=== PATIENT | male | born 1985 | race Caucasian/White ===

== ENCOUNTER 2021-01-04 08:50 | Outpatient (CLI) | payer BC, SELFPAY ==
[2021-01-04 09:47] LABS: Alanine Aminotransferase 44 U/L (4-50); Albumin Level 4.3 g/dL (3.5-5.1); Alkaline Phosphatase 44 U/L (38-126); Anion Gap 8 mmol/L (8-16); Aspartate Amino Transferase 32 U/L (17-59); Bilirubin,Total 0.3 mg/dL (0.2-1.3); Blood Urea Nitrogen 10 mg/dL (9-20); Calcium 8.9 mg/dL (8.4-10.2); Carbon Dioxide 28 mmol/L (22-30); Chloride 106 mmol/L (98-107); Cholesterol 161 mg/dL (0-200); Estimated Glomerular Filt Rate > 60; Glucose 103 mg/dL (75-110); HDL Direct 42 mg/dL; Potassium 4.3 mmol/L (3.4-5.0); Sodium 142 mmol/L (137-145); Triglycerides 112 mg/dL (<150)
[2021-01-04 09:58] LABS: LDL Cholesterol Direct 99 mg/dL
[2021-01-04 09:59] LABS: Hemoglobin A1C 4.8 % (<5.7)
== END 2021-01-04 08:51 | disposition home or self-care (01) ==
LOC: ANHLAB 08:52
PROVIDERS: PCP Internal Medicine; Visit Provider Nurse Practitioner
DX: Z00.00 Encounter for general adult medical examination without abnormal findings (principal); Z68.37 Body mass index [BMI] 37.0-37.9, adult
CPT/HCPCS: 36415; 80053; 80061; 83036; 84443

== ENCOUNTER 2021-01-14 17:50 | Outpatient (CLI) | payer BC, SELFPAY | END 2021-01-14 17:51 | disposition home or self-care (01) | LOC: ANHCOVIDVC 17:50 | PROVIDERS: PCP Internal Medicine; Visit Provider Internal Medicine | DX: Z23 Encounter for immunization (principal) | CPT/HCPCS: 0001A; 91300 ==

== ENCOUNTER 2021-01-24 07:24 | Outpatient (CLI) | payer BC, SELFPAY | END 2021-01-24 07:25 | disposition home or self-care (01) | PROVIDERS: PCP Internal Medicine; Visit Provider Otolaryngology | DX: H91.91 Unspecified hearing loss, right ear (principal) | CPT/HCPCS: 92552; 92556; 92567 ==

== ENCOUNTER 2021-02-04 17:45 | Outpatient (CLI) | payer BC, SELFPAY | END 2021-02-04 17:46 | disposition home or self-care (01) | LOC: ANHCOVIDVC 17:45 | PROVIDERS: PCP Internal Medicine; Visit Provider Internal Medicine | DX: Z23 Encounter for immunization (principal) | CPT/HCPCS: 0002A; 91300 ==

== ENCOUNTER 2021-09-02 16:38 | Outpatient (CLI) | payer BC, SELFPAY ==
[2021-09-02 17:32] LABS: Add Urine Microscopic? YES; Appearance Urine Cloudy (Clear); Bilirubin Urine Negative (Negative); Blood Urine 1+ (Negative); Color Urine Yellow (Yellow); Glucose Urine UA Negative (Negative); Ketones Urine Negative (Negative); Leukocyte Esterase Ur Negative LEU/UL (Negative); Mucus Urine Rare /lpf; Nitrate Urine Negative (Negative); Protein Urine Negative (Negative); Specific Grav Ur 1.019 (1.001-1.035); Urobilinogen Urine Negative mg/dL (<2.0); WBC Urine 0-3 /hpf
== END 2021-09-02 16:39 | disposition home or self-care (01) ==
LOC: ANHLAB 16:39
PROVIDERS: PCP Internal Medicine; Visit Provider Nurse Practitioner
DX: R31.9 Hematuria, unspecified (principal)
CPT/HCPCS: 81001

== ENCOUNTER → 2021-09-17 09:16 | Outpatient (CLI) | payer BC, SELFPAY ==
--- NOTE | ~2021-09-17 | XR_ITS ---
XR abdomen/kub 1V 09/17/2021 10:09 INDICATION: Hematuria TECHNIQUE: KUB COMPARISON: None FINDINGS: Bowel gas pattern is normal. There is no evidence of free air, mass, organomegaly, ascites or obstruction. No abnormal calculi are seen. The bones appear intact. IMPRESSION: 1: No acute abdominal abnormality identified. Reviewed, dictated and finalized at location A. ORT UTILITY WORKER
--- NOTE | ~2021-09-17 | CT_ITS ---
EXAMINATION: CT abdomen pelvis wo/w con DATE: 09/17/2021 10:09 INDICATION: Hematuria. TECHNIQUE: Computed tomography (CT) of the abdomen and pelvis was performed without intravenous contr ast. The dose-length product was 2348.05 mGy-cm. Automated exposure control and iterative reconstruct ion technique were employed. COMPARISON: CT dated 08/27/2004. FINDINGS: Lung bases are unremarkable. Heart size normal. No significant pleural or pericardial effus ion. There are mildly enlarged ileocolic lymph nodes which appear chronic, likely reactive. There are surgical changes of prior appendectomy. No renal/ureteral stones or hydronephrosis. Bladder is unrem arkable. No significant vascular abnormality. Nonobstructive bowel gas pattern. The liver, spleen, pancreas, adrenal glands and kidneys are unremarkable. Gallbladder is present. Col onic diverticulosis without evidence for diverticulitis. No renal masses or hydronephrosis. No free a ir or free fluid. IMPRESSION: 1. No findings to account for hematuria. Reviewed, dictated and finalized at location A. NICAL COMMUNICATOR
[2021-09-17 09:45] LABS: Estimated Glomerular Filt Rate > 60
== END ==
PROVIDERS: PCP Internal Medicine; Visit Provider Nurse Practitioner Adult Health
DX: R31.9 Hematuria, unspecified (principal)
CPT/HCPCS: 74018; 74178; Q9967

== ENCOUNTER 2025-05-03 16:18 | Outpatient (CLI) | payer BC, SELFPAY ==
[2025-05-03 16:35] LABS: Basophils Absolute Auto 0.1 K/mm3 (0.0-0.1); Basophils Percent Auto 0.5 % (0.2-1.2); Eosinophils Absolute Auto 0.3 K/mm3 (0-0.3); Eosinophils Percent Auto 2.6 % (0-4.4); Hematocrit 50.2 % (42.0-52.0); Immature Granulocyte Absolute 0.05 K/mm3 (0.00-0.031); Immature Granulocyte Percent A 0.4 % (0-0.5); Lymphocytes Absolute Auto 2.79 K/mm3 (0.9-3.2); Mean Corpuscular HGB Conc 33.9 g/dl (32-36); Mean Corpuscular Hemoglobin 30.5 pg (26-34); Mean Corpuscular Volume 90.1 fl (80-100); Mean Platelet Volume 9.7 fl (7.4-10.4); Monocytes Absolute Auto 0.9 K/mm3 (0.1-0.6); Monocytes Percent Auto 6.7 % (2.6-8.5); Neutrophils Absolute Auto 8.6 K/mm3 (1.3-6.7); Neutrophils Percent Auto 67.8 % (45.5-73.1); Platelet Count Result 375 k/mm3 (150-375); Red Blood Count 5.57 M/mm3 (4.6-6.20); Red Cell Distribution Width 12.6 % (11.5-14.5); White Blood Count 12.7 K/mm3 (4.5-10.0)
[2025-05-03 16:48] LABS: Alanine Aminotransferase 57 U/L (6-50); Albumin Level 4.9 g/dL (3.5-5.1); Alkaline Phosphatase 57 U/L (38-126); Anion Gap 13 mmol/L (4-12); Aspartate Amino Transferase 44 U/L (17-59); Bilirubin,Total 0.7 mg/dL (0.2-1.3); Blood Urea Nitrogen 8 mg/dL (9-20); Calcium 9.5 mg/dL (8.4-10.2); Carbon Dioxide 24 mmol/L (22-30); Chloride 103 mmol/L (98-107); Cholesterol 218 mg/dL (0-200); Estimated Glomerular Filt Rate > 60; Glucose 90 mg/dL (65-110); HDL Direct 43 mg/dL; Potassium 3.6 mmol/L (3.4-5.0); Sodium 140 mmol/L (137-145); Total Protein 8.7 g/dL (6.3-8.2); Triglycerides 156 mg/dL (<150)
[2025-05-03 17:00] LABS: LDL Cholesterol Direct 133 mg/dL
== END 2025-05-03 16:19 | disposition home or self-care (01) ==
LOC: ANHLAB 16:19
PROVIDERS: PCP Internal Medicine; Visit Provider Internal Medicine
DX: Z00.00 Encounter for general adult medical examination without abnormal findings (principal); I10 Essential (primary) hypertension; F32.9 Major depressive disorder, single episode, unspecified; Z13.220 Encounter for screening for lipoid disorders
CPT/HCPCS: 36415; 80053; 80061; 84443; 85025

== ENCOUNTER 2025-09-20 16:24 | Outpatient (CLI) | payer BC, SELFPAY ==
--- NOTE | ~2025-09-20 | XR_ITS ---
EXAM/PROCEDURE: XR chest 2V HISTORY: I10 - Essential (primary) hypertension SMOKER COMPARISON: None available. TECHNIQUE: Two view(s) of the chest. FINDINGS: LUNGS: Clear of acute processes. PLEURAL SPACES: Clear. No evidence of fluid or pneumothorax. HEART/ MEDIASTINUM: Normal in appearance. SOFT TISSUES: No significant findings. BONES: No acute osseous abnormality. IMPRESSION: No acute findings. Reviewed, dictated and finalized at location A. CTION MACHINE SETTER IMPRESSION: No acute findings.
--- OUTSIDE RECORDS SUMMARY | 2025-09-20 16:27 | XMS_ITS | Patient Health Record ---
Author Organization [facility] [employer] [facility] Address [address] [facility] [address] [place] [address] Care Team Providers Care Automatic Line Set Up Mechanic Name Role Phone Billy Womack DO Primary Care Provider Yeny Ramachandran Unavailable [phone] Cj Kruger Unavailable [phone] Allergies Allergen (clinical drug ingredient) Drug/Non Drug Allergy documented on EMR Reaction Allergy Type Onset Date Status atomoxetine Atomoxetine HCl suicidal thoughts Drug Allergy Active Results Component Value Reference Range Flag Notes UDT Reviewed date:06/09/2025 08:37:02 AM Interpretation: Performing Lab: Notes/Report: Amphetamine (AMP) N 0 - 1000 ng/ml Buprenorphine (BUP) N 0 - 10 ng/ml Oxazepam (BZO) N 0 - 300 ng/ml Cocaine (JOE) N 0 - 300 ng/ml Methamphetamine (mAMP) N 0 - 300 ng/ml Methylenedioxymethamphetamin e (MDMA) N 0 - 500 ng/ml Morphine (MOP) N 0 - 25 ng/ml Methadone (MTD) N 0 - 300 ng/ml Oxycodone (OXY) N 0 - 300 ng/ml THC P 0 - 50 ng/ml x N 0 - 1000 ng/ml x N 0 - 1000 ng/ml x N 0 - 300 ng/ml x N 0 - 300 ng/ml Validity Testing Reviewed date:06/01/2025 10:51:43 AM Interpretation: Performing Lab: Notes/Report: Not Medicated Consistent Not Medicated Consistent Not Medicated Consistent Not Medicated Consistent Specific [place] 1.018 1.003 - 1.030 pH 5.5 3.0 - 10.9 Oxidants -18 200 g/mL Creatinine 147.7 20.0 - 300.0 mg/dL THCCOOH Reviewed date:06/01/2025 10:51:34 AM Interpretation: Performing Lab:KYLIE Carson, [address] [place] [address] RIMMA JOHNSTON, Director - [id number] Notes/Report: An exception occurred while processing this report and so it has incomplete data. Please contact [employer] for assistance. THCCOOH 258.0 15.0 ng/mL POSITIVE Not Medicated Inconsistent PDF Report CE_OUT_RAW _COMMON_SR C_ORU UDT Reviewed date:05/25/2025 03:21:33 PM Interpretation: Performing Lab: Notes/Report: Amphetamine (AMP) N 0 - 1000 ng/ml Buprenorphine (BUP) N 0 - 10 ng/ml Oxazepam (BZO) N 0 - 300 ng/ml Cocaine (JOE) N 0 - 300 ng/ml Methamphetamine (mAMP) N 0 - 300 ng/ml Methylenedioxymethamphetamin e (MDMA) N 0 - 500 ng/ml Morphine (MOP) N 0 - 25 ng/ml Methadone (MTD) N 0 - 300 ng/ml Oxycodone (OXY) N 0 - 300 ng/ml THC P 0 - 50 ng/ml x N 0 - 1000 ng/ml x N 0 - 1000 ng/ml x N 0 - 300 ng/ml x N 0 - 300 ng/ml x N 0 - 300 ng/ml Reason For Referral No Information Medications Medication SIG (Take, Route, Frequency, Duration) Notes Start Date End Date Status DULoxetine HCl 60 MG Capsule Delayed Release Particles TAKE 1 CAPSULE BY MOUTH DAILY Oral; Duration: 90 Days Active [place] Carbonate 150 MG Capsule 1 capsule Orally bedtime; Duration: 90 days 08/09/2025 Active amLODIPine Besylate 5 MG Tablet TAKE 1 TABLET BY MOUTH DAILY Oral; Duration: 90 Days Active Social History Tobacco Use: Social History Observation Description Date Details (start date - stop date) Current Smoker 05/14/2006 - NA Sex Assigned At : Social History Observation Description Sex Assigned At Male Social History Miscellaneous: Social Info Question Answer Notes Safety issues: Are there any firearms in the house? No Social History Social Info Question Answer Notes Household: Marital Status: Single Number of Adults in household: 1 Number of Children in Household: 0 Level of Education: Finished College Drug/Alcohol: Social Info Question Answer Notes Drugs Have you used drugs other than those for medical reasons in the past 12 months? Yes Marijuana? Yes AUDIT-C (Standard) Did you have a drink containi ng alcohol in the past year? Yes How often did you have six or more drinks on one occasion in the past year? Never (0 point) How many drinks did you have on a typical day when you were drinking in the past year? 1 or 2 drinks (0 point) How often did you have a drink containing alcohol in the past year? Monthly or less (1 point) Tobacco Use: Social Info Question Answer Notes Tobacco Control (Standard) Tobacco use: Current smoker When did you start smoking? 05/14/2006 How often do you smoke cigarettes? Every day How many cigarettes a day do you smoke? 21-30 How soon after you wake up do you smoke your first cigarette? 6-30 minutes Are you interested in quitting? Thinking about quitting Additional Details Category Social Info Options Details Miscellaneous: Occupation: Logistics [employer] Problems Problem Type SNOMED Code ICD Code Onset Dates Problem Status W/U Status Risk Notes Problem Screening for cardiovascular system disease (390639798) Encounter for screening for cardiovascular disorders (Z13.6) Active confirmed Problem Dietary management surveillance (945195935) Dietary counseling and surveillance (Z71.3) Active confirmed Problem Generalized anxiety disorder (22708063) ADEOLA (generalized anxiety disorder) (F41.1) Active confirmed Problem Moderate recurrent major depression (58725041) MDD (major depressive disorder), recurrent episode, moderate (F33.1) Active confirmed Problem Nondependent cannabis abuse (366898149) Marijuana use (F12.90) Active confirmed Problem Attention deficit hyperactivity disorder (929313659) Attention deficit hyperactivity disorder (ADHD), unspecified ADHD type (F90.9) Active confirmed Problem Adult attention deficit hyperactivity disorder (disorder) (523738416) Attention deficit disorder (ADD) in adult (F98.8) Active confirmed Problem Elevated blood-pressure reading without diagnosis of hypertension (291954688) Elevated blood pressure reading (R03.0) Active confirmed Problem Suicidal thoughts (2862741) Suicidal thoughts (R45.851) Active confirmed Problem Tobacco use (161374425) Nicotine use (Z72.0) Active confirmed Problem Essential hypertension (47967450) Benign essential HTN (I10) Active confirmed Problem Inadequate sleep hygiene (525394896) Poor sleep hygiene (Z72.821) Active confirmed Vital Signs Heart Rate 70 /min 08/09/2025 Respiratory Rate 17 /min 05/25/2025 Height-cm 182.88 cm 08/09/2025 Blood pressure diastolic 113 mm Hg 08/09/2025 Weight-kg 127.28 kg 08/09/2025 Height 72 in 08/09/2025 Blood pressure systolic 178 mm Hg 08/09/2025 Weight 280.6 lbs 08/09/2025 BMI 38.05 kg/m2 08/09/2025 Encounters Encounter Location Date Provider Diagnosis [facility] [employer] [place] [address] [address] [facility] [address] [address] 05/25/2025 Yeny Sotelo Nicotine use Z72.0 ; MDD (major depressive disorder), recurrent episode, moderate F33.1 ; Marijuana use F12.90 ; Encounter for screening for cardiovascular disorders Z13.6 ; Dietary counseling and surveillance Z71.3 ; Elevated blood pressure reading R03.0 ; ADEOLA (generalized anxiety disorder) F41.1 ; Poor sleep hygiene Z72.821 and Attention deficit disorder (ADD) in adult F98.8 [facility] [employer] [address] [address] 06/08/2025 Cj Kruger Attention deficit hyperactivity disorder (ADHD), unspecified ADHD type F90.9 [facility] [employer] [address] [address] 06/22/2025 Yeny Sotelo Encounter for screen ing for cardiovascular disorders Z13.6 ; Dietary counseling and surveillance Z71.3 ; MDD (major depressive disorder), recurrent episode, moderate F33.1 ; Nicotine use Z72.0 ; Marijuana use F12.90 ; Elevated blood pressure reading R03.0 ; ADEOLA (generalized anxiety disorder) F41.1 ; Poor sleep hygiene Z72.821 and Attention deficit disorder (ADD) in adult F98.8 [employer] [place] [employer] [address] [address] 07/20/2025 Yeny Sotelo MDD (major depressiv e disorder), recurrent episode, moderate F33.1 ; Nicotine use Z72.0 ; Marijuana use F12.90 ; ADEOLA (generalized anxiety disorder) F41.1 ; Poor sleep hygiene Z72.821 ; Attention deficit disorder (ADD) in adult F98.8 [address] R45.851 [facility] [employer] [address] [place] [address] 08/09/2025 Yeny Sotelo MDD (major depressiv e disorder), recurrent episode, moderate F33.1 ; Nicotine use Z72.0 ; Marijuana use F12.90 ; ADEOLA (generalized anxiety disorder) F41.1 ; Poor sleep hygiene Z72.821 ; Attention deficit disorder (ADD) in adult F98.8 ; Suicidal thoughts R45.851 and Benign essential HTN I10 Assessments Encounter Date Diagnosis (ICD Code) Assessment Notes Treatment Notes Treatment Clinical Notes Section Notes 05/25/2025 MDD (major depressive disorder), recurrent episode, moderate (ICD-10 - F33.1) 1.Depression Cymbalta 60 mg daily in am - helping last month on rx PCP prescribe rx discuss therapy options- pateint will wait at this time 2. Anxiety Cymbalta 60 mg daily in am 3.Poor Sleep hygeine Sleep Hygeine- - KEEP YOUR BEDROOM DARK - GET LOTS OF NATURAL LIGHT IN THE MORNING. - DON'T WORK ON YOUR COMPUTER OR PHONE LATE AT NIGHT. - AVOID NAPS DURING THE DAY. - NO CAFFEINE 3 HOURS OR MORE AFTER WAKE UP TIME. - ONLY USE YOUR BED FOR SLEEPING - GET A RELAXATION ROUTINE BEFORE BED. - IF YOU CAN'T GET TO SLEEP AFTER 15 TO 30 MINUTES GET OUT OF BED AND DO SOMETHING RELAXING. - DON'T DRINK ALCOHOL IN THE EVENING or limit alcohol to 1 drink. 4. Tobacco use Smoking Education Do not smoke. Nicotine and other chemicals in cigarettes and cigars can cause lung damage. Ask your healthcare provider for information if you currently smoke and need help to quit. E-cigarettes or smokeless tobacco still contain nicotine. Talk to your healthcare provider before you use these products. education on decrease to stopping nicotine products and stop smoking hotline given -Quit - Yes [place] Tobacco Quitline Call a Smoking Quitline The National Cancer [place]'s Smoking Quitline, (8-278-49L-QUIT) Smokefree.gov, which connects you with your State's Quitline, (8-205-DANORRF) Veterans Smoking Quitline, (9-177-VWBRCLY) 5. Cannabis use Cannabis Use Education Recommend decrease/stop cannabis use as it can negatively impact mood, motivation, anxiety, sleep, focus/concentrat ion/memory (vigilance, elasticity, processing and attention); can also contribute to development of psychosis. Recommend decrease/stop cannabis use as it may be negatively impacting mood, motivation, anxiety, sleep, focus; can also contribute to development of psychosis Cannabis/marijua na information: http_s://estrellita.ni h.gov/publicatio ns/drugfacts/can nabis-marijuana http_s://www.[employer]/can kbdjd-xmg-tdhziy zw-cstzpotti-hmu d/ 6/ elevated blood pressure B/P EDUCATION educated on healthy b/p 120/80 monitor b/p at home refer to PCP, heart healthy diet and excise limit salt intake limit soda intake and caffiene increase water 7. ADD Schedule Creyos testing educated on cardiovascular health and HTN discuss non-stimualtes no control subtance prescribed by RADHA r/t cannabis use and HTN Patient educated on all medications including potential benefits, side effects, risks. Educated on proper dosing schedule and importance of compliance educated on all medications, benefits, side effects and risk, and educated on depression, anxiety, and ADHD, mood d/o and educated on compliance of medications, metabolic and movement d/o education appointment's, continue therapy discussion with patient about course of treatment and patient instructions. education on serotonin syndrome Discussed and educated pt regarding benzodiazepines are generally not intended for prolonged use and that use can cause tolerance, dependence, depression, and associated memory issues including dementias (this list is not exhaustive). Benzodiazepine use is generally not recommended concurrently with pain medications and/or other controlled substances educated on all medications, benefits, side effects and risk, and educated on depression, anxiety, and ADHD, mood d/o and educated on compliance of medications, metabolic and movement d/o education appointment is, continue therapy discussion with patient about course of treatment and patient instructions. education on serotonin syndrome SSRI/SNRI side effects discussed including but not limited to, gastric upset, nausea, vomiting, diarrhea and/or constipation, weight changes, sexual side effects including loss of libido, increased suicidal thoughts/behavio rs in children and young adults, and serotonin syndrome. Second generation antipsychotics (SGAs) have metabolic syndrome issues with weight gain, increase in prolactin, increased waist circumference, increased lipids, and increased glucose. Thus routine monitoring of weight, metabolic labs, etc. is indicated. A general rank ordering of antipsychotics that have the greatest to the least risk of metabolic effects is olanzapine, quetiapine, risperidone, ziprasidone, and aripiprazole. However, weight gain can occur with all of these drugs and considerable variability exists among patients receiving the same drug regarding the risk of metabolic effects. Anti-psychotic agents not only increase the risk of metabolic disorder, they also increase the risk of CVA, akathisia, and movement disorders including EPS or tardive dyskinesia (more common with first generation antipsychotics) and more. websites http_s://www.[facility].nih.gov/health /topics/mental-h ealth-medication s http_s://www.nam i.org/About-Ment al-Illness/Treat ments/Mental-Hea lth-Medications http_s://www.nam i.org/About-Ment al-Illness/Menta s-Kbvclr-Cozjmzb ons http_s://[employer]/depres myrna/the-cogniti kd-iwjqakyy-nn-d epression#treatm ents http__s://www.ni .nih.gov/healt h/topics/mental- health-medicatio ns http__s://www.na ct.org/About-Men prachi-Illness/Tamika tments/Mental-He alth-Medications http_s://estrellita.ni h.gov/publicatio ns/drugfacts/can nabis-marijuana http_s://www.[employer]/can mvgyw-ygh-nxvdvb bo-ohiaptrks-ckw d/ Medication Management and Follow-Up - Plan: - Schedule follow-up appointments every 1-3 months to monitor the patient's response to the medication regimen. - Reinforce the importance of avoiding recreational drug use due to potential neurotoxicity and interactions with prescribed medications. 06/08/2025 Attention deficit hyperactivity disorder (ADHD), unspecified ADHD type (ICD-10 - F90.9) ADHD Cognitive Assessment Interpretation Summary of Results ASRS v1.1 Part A Questionnaire: Score is above the threshold, indicating the presence of clinically significant ADHD symptoms. Cognitive Markers: Two cognitive markers are outside the typical range, suggesting some cognitive challenges associated with ADHD. Detailed Cognitive Profile Planning (Spatial Planning): Performance is above average (76th percentile), indicating good ability to plan and organize complex tasks. Spatial Working Memory: Performance is above average (78th percentile), showing strength in holding and manipulating spatial information. Attention (Feature Match): Zero errors, which is favorable and suggests strong sustained attention. Reaction time is faster than typical (86th percentile), indicating quick cognitive processing. Response Inhibition (Double Trouble): Very few errors and low interference ratios, suggesting that the ability to suppress automatic responses and manage conflicting information is within normal limits. Overall reaction time is slower than average (96th percentile), which may indicate a cautious or deliberate approach but is not necessarily pathological. Sustained Attention to Response Task (SART): Commission and omission errors are low, and reaction time variability is within average limits, suggesting generally consistent attention and response control. Interpretation While the ASRS questionnaire is indicative of ADHD symptoms, the objective cognitive assessment reveals generally strong or average performance across planning, working memory, attention, and inhibition. There is evidence of slightly slower processing speed in one inhibition task, but no substantial deficits. Overall, this pattern may reflect ADHD symptoms that are either well-compensat ed or situational, with minimal objective impairment in cognitive testing. Non-Pharmacolo c Recommendation s Behavioral Strategies: Implement structured routines and written schedules to reinforce organization and task completion. Cognitive Behavioral Therapy (CBT): CBT can help with skill-building in organization, time management, and impulse control. Environmental Adaptations: Reduce distractions in work and home environments. Use reminders, alarms, and external cues to aid attention and memory. Mindfulness-Ba sed Interventions: Mindfulness training can improve self-awareness of attention lapses and support focus. Task Management: Break complex or lengthy tasks into smaller, achievable segments with clear milestones. Physical Activity: Regular exercise supports overall cognitive health, mood stability, and self-regulatio n. Consistent Sleep Hygiene: Maintain regular sleep patterns to optimize cognitive performance and attention. Psychoeducatio n: Educate on ADHD and self-managemen t strategies, encouraging self-monitorin g and goal-setting. Summary The assessment indicates some ADHD symptoms by self-report but only mild objective findings. Non-pharmacolo gical interventions including structured routines, cognitive behavioral therapy, mindfulness, environmental modifications, and healthy lifestyle practices are recommended to support optimal functioning and minimize the impact of symptoms. Regular follow-up can help monitor progress and adjust strategies as needed. 06/22/2025 Encounter for screening for cardiovascular disorders (ICD-10 - Z13.6) 1.Depression Cymbalta 60 mg daily in am - helping last month on rx PCP prescribe rx discuss therapy options- pateint will wait at this time 2. Anxiety Cymbalta 60 mg daily in am 3.Poor Sleep hygeine Sleep Hygeine- - KEEP YOUR BEDROOM DARK - GET LOTS OF NATURAL LIGHT IN THE MORNING. - DON'T WORK ON YOUR COMPUTER OR PHONE LATE AT NIGHT. - AVOID NAPS DURING THE DAY. - NO CAFFEINE 3 HOURS OR MORE AFTER WAKE UP TIME. - ONLY USE YOUR BED FOR SLEEPING - GET A RELAXATION ROUTINE BEFORE BED. - IF YOU CAN'T GET TO SLEEP AFTER 15 TO 30 MINUTES GET OUT OF BED AND DO SOMETHING RELAXING. - DON'T DRINK ALCOHOL IN THE EVENING or limit alcohol to 1 drink. 4. Tobacco use Smoking Education Do not smoke. Nicotine and other chemicals in cigarettes and cigars can cause lung damage. Ask your healthcare provider for information if you currently smoke and need help to quit. E-cigarettes or smokeless tobacco still contain nicotine. Talk to your healthcare provider before you use these products. education on decrease to stopping nicotine products and stop smoking hotline given Quit - Yes [place] Tobacco Quitline Call a Smoking Quitline The National Cancer [place] Smoking Quitline, (1-352-68F-QUIT) Smokefree.gov, which connects you with your State's Quitline, (2-262-HBBNQLO) Veterans Smoking Quitline, (2-494-CESYVKD) 5. Cannabis use Cannabis Use Education Recommend decrease/stop cannabis use as it can negatively impact mood, motivation, anxiety, sleep, focus/concentrat ion/memory (vigilance, elasticity, processing and attention); can also contribute to development of psychosis. Recommend decrease/stop cannabis use as it may be negatively impacting mood, motivation, anxiety, sleep, focus; can also contribute to development of psychosis Cannabis/marijua na information: http_s://estrellita.ni h.gov/publicatio ns/drugfacts/can nabis-marijuana http_s://www.[employer]/can tcoog-tdb-zvygau yz-nzbfavmqj-muv d/ 6/ elevated blood pressure B/P EDUCATION educated on healthy b/p 120/80 monitor b/p at home refer to PCP, heart healthy diet and excise limit salt intake limit soda intake and caffiene increase water 7. 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 Educated on proper dosing schedule and importance of compliance educated on all medications, benefits, side effects and risk, and educated on depression, anxiety, and ADHD, mood d/o and educated on compliance of medications, metabolic and movement d/o education appointment's, continue therapy discussion with patient about course of treatment and patient instructions. education on serotonin syndrome Discussed and educated pt regarding benzodiazepines are generally not intended for prolonged use and that use can cause tolerance, dependence, depression, and associated memory issues including dementias (this list is not exhaustive). Benzodiazepine use is generally not recommended concurrently with pain medications and/or other controlled substances educated on all medications, benefits, side effects and risk, and educated on depression, anxiety, and ADHD, mood d/o and educated on compliance of medications, metabolic and movement d/o education appointment is, continue therapy discussion with patient about course of treatment and patient instructions. education on serotonin syndrome SSRI/SNRI side effects discussed including but not limited to, gastric upset, nausea, vomiting, diarrhea and/or constipation, weight changes, sexual side effects including loss of libido, increased suicidal thoughts/behavio rs in children and young adults, and serotonin syndrome. Second generation antipsychotics (SGAs) have metabolic syndrome issues with weight gain, increase in prolactin, increased waist circumference, increased lipids, and increased glucose. Thus routine monitoring of weight, metabolic labs, etc. is indicated. A general rank ordering of antipsychotics that have the greatest to the least risk of metabolic effects is olanzapine, quetiapine, risperidone, ziprasidone, and aripiprazole. However, weight gain can occur with all of these drugs and considerable variability exists among patients receiving the same drug regarding the risk of metabolic effects. Anti-psychotic agents not only increase the risk of metabolic disorder, they also increase the risk of CVA, akathisia, and movement disorders including EPS or tardive dyskinesia (more common with first generation antipsychotics) and more. websites http_s://www.[facility].nih.gov/health /topics/mental-h ealth-medication s http_s://www.nam i.org/About-Ment al-Illness/Treat ments/Mental-Hea lth-Medications http_s://www.nam i.org/About-Ment al-Illness/Menta p-Ydpxts-Uvttjvk ons http_s://[employer]/deprvika myrna/the-cogniti ib-rekrcoth-nz-d epression#treatm ents http__s://www.[facility].nih.gov/healt h/topics/mental- health-medicatio ns http__s://www.na mi.org/About-Men prachi-Illness/Tamika tments/Mental-He alth-Medications http_s://estrellita. h.gov/publicatio ns/drugfacts/can nabis-marijuana http_s://www.[employer]/can mnozc-cxf-yauohd gv-huowmhxal-rzb d/ Medication Management and Follow-Up - Plan: - Schedule follow-up appointments every 1-3 months to monitor the patient's response to the medication regimen. - Reinforce the importance of avoiding recreational drug use due to potential neurotoxicity and interactions with prescribed medications. 05/25/2025 Nicotine use (ICD-10 - Z72.0) 1.Depression Cymbalta 60 mg daily in am - helping last month on rx PCP prescribe rx discuss therapy options- pateint will wait at this time 2. Anxiety Cymbalta 60 mg daily in am 3.Poor Sleep hygeine Sleep Hygeine- - KEEP YOUR BEDROOM DARK - GET LOTS OF NATURAL LIGHT IN THE MORNING. - DON'T WORK ON YOUR COMPUTER OR PHONE LATE AT NIGHT. - AVOID NAPS DURING THE DAY. - NO CAFFEINE 3 HOURS OR MORE AFTER WAKE UP TIME. - ONLY USE YOUR BED FOR SLEEPING - GET A RELAXATION ROUTINE BEFORE BED. - IF YOU CAN'T GET TO SLEEP AFTER 15 TO 30 MINUTES GET OUT OF BED AND DO SOMETHING RELAXING. - DON'T DRINK ALCOHOL IN THE EVENING or limit alcohol to 1 drink. 4. Tobacco use Smoking Education Do not smoke. Nicotine and other chemicals in cigarettes and cigars can cause lung damage. Ask your healthcare provider for information if you currently smoke and need help to quit. E-cigarettes or smokeless tobacco still contain nicotine. Talk to your healthcare provider before you use these products. education on decrease to stopping nicotine products and stop smoking hotline given Quit - Yes [place] Tobacco Quitline Call a Smoking Quitline The [employer] [facility] [place]'s Smoking Quitline, (8-007-53X-QUIT) Smokefree.gov, which connects you with your [facility]'s Quitline, (4-166-PNHWKMO) [facility] Smoking Quitline, (5-882-EPEDEYG) 5. Cannabis use Cannabis Use Education Recommend decrease/stop cannabis use as it can negatively impact mood, motivation, anxiety, sleep, focus/concentrat ion/memory (vigilance, elasticity, processing and attention); can also contribute to development of psychosis. Recommend decrease/stop cannabis use as it may be negatively impacting mood, motivation, anxiety, sleep, focus; can also contribute to development of psychosis Cannabis/marijua na information: http_s://estrellita.ni h.gov/publicatio ns/drugfacts/can nabis-marijuana http_s://www.[employer]/can kgdlf-wmv-zmwado uy-avyskwzlf-pio d/ 6/ elevated blood pressure B/P EDUCATION educated on healthy b/p 120/80 monitor b/p at home refer to PCP, heart healthy diet and excise limit salt intake limit soda intake and caffiene increase water 7. ADD Schedule Creyos testing educated on cardiovascular health and HTN discuss non-stimualtes no control subtance prescribed by RADHA r/t cannabis use and HTN Patient educated on all medications including potential benefits, side effects, risks. Educated on proper dosing schedule and importance of compliance educated on all medications, benefits, side effects and risk, and educated on depression, anxiety, and ADHD, mood d/o and educated on compliance of medications, metabolic and movement d/o education appointment's, continue therapy discussion with patient about course of treatment and patient instructions. education on serotonin syndrome Discussed and educated pt regarding benzodiazepines are generally not intended for prolonged use and that use can cause tolerance, dependence, depression, and associated memory issues including dementias (this list is not exhaustive). Benzodiazepine use is generally not recommended concurrently with pain medications and/or other controlled substances educated on all medications, benefits, side effects and risk, and educated on depression, anxiety, and ADHD, mood d/o and educated on compliance of medications, metabolic and movement d/o education appointment is, continue therapy discussion with patient about course of treatment and patient instructions. education on serotonin syndrome SSRI/SNRI side effects discussed including but not limited to, gastric upset, nausea, vomiting, diarrhea and/or constipation, weight changes, sexual side effects including loss of libido, increased suicidal thoughts/behavio rs in children and young adults, and serotonin syndrome. Second generation antipsychotics (SGAs) have metabolic syndrome issues with weight gain, increase in prolactin, increased waist circumference, increased lipids, and increased glucose. Thus routine monitoring of weight, metabolic labs, etc. is indicated. A general rank ordering of antipsychotics that have the greatest to the least risk of metabolic effects is olanzapine, quetiapine, risperidone, ziprasidone, and aripiprazole. However, weight gain can occur with all of these drugs and considerable variability exists among patients receiving the same drug regarding the risk of metabolic effects. Anti-psychotic agents not only increase the risk of metabolic disorder, they also increase the risk of CVA, akathisia, and movement disorders including EPS or tardive dyskinesia (more common with first generation antipsychotics) and more. websites http_s://www.nim h.nih.gov/health /topics/mental-h ealth-medication s http_s://www.nam i.org/About-Ment al-Illness/Treat ments/Mental-Hea lth-Medications http_s://www.nam i.org/About-Ment al-Illness/Menta a-Yuderd-Mpbkrys ons http_s://psychce ntral.com/deprvika norris/the-cogniti tp-djvcngqn-bh-d epression#treatm ents http__s://www.ni .nih.gov/healt h/topics/mental- health-medicatio ns http__s://www.na mi.org/About-Men prachi-Illness/Tamika tments/Mental-He alth-Medications http_s://estrellita.ni h.gov/publicatio ns/drugfacts/can nabis-marijuana http_s://[employer]/can syraw-srk-zyngmm hu-bdeoccihc-emu d/ Medication Management and Follow-Up - Plan: - Schedule follow-up appointments every 1-3 months to monitor the patient's response to the medication regimen. - Reinforce the importance of avoiding recreational drug use due to potential neurotoxicity and interactions with prescribed medications. 07/20/2025 MDD (major depressive disorder), recurrent episode, moderate (ICD-10 - F33.1) Preventing Depression From Coming Back: Care Instructions material was published, Learning About Depression Screening material was published, Learning About Depression material was published, Depression Treatment: Care Instructions material was published, Seasonal Affective Disorder: Care Instructions material was published, Learning About Transcranial Magnetic Stimulation (TMS) material was published, Recovering From Depression: Care Instructions material was published, Depression and Chronic Disease: Care Instructions material was published, Learning About Antidepressants material was published, Deciding About Stopping Your Antidepressant material was published, Learning About How to Get Help During a Mental Health Crisis material was published, Suicidal Thoughts and Behavior: Care Instructions material was published, Suicidal Thoughts in a Family Member: Care Instructions material was published 1.Depression Cymbalta 60 mg daily in am - helping last month on rx Start [id number] at bedtime for depression and suicide prevention PCP prescribe rx discuss therapy options- pateint will wait at this time 2. Anxiety Cymbalta 60 mg daily in am 3.Poor Sleep hygeine Sleep Hygeine- - KEEP YOUR BEDROOM DARK - GET LOTS OF NATURAL LIGHT IN THE MORNING. - DON'T WORK ON YOUR COMPUTER OR PHONE LATE AT NIGHT. - AVOID NAPS DURING THE DAY. - NO CAFFEINE 3 HOURS OR MORE AFTER WAKE UP TIME. - ONLY USE YOUR BED FOR SLEEPING - GET A RELAXATION ROUTINE BEFORE BED. - IF YOU CAN'T GET TO SLEEP AFTER 15 TO 30 MINUTES GET OUT OF BED AND DO SOMETHING RELAXING. - DON'T DRINK ALCOHOL IN THE EVENING or limit alcohol to 1 drink. 4. Tobacco use Smoking Education Do not smoke. Nicotine and other chemicals in cigarettes and cigars can cause lung damage. Ask your healthcare provider for information if you currently smoke and need help to quit. E-cigarettes or smokeless tobacco still contain nicotine. Talk to your healthcare provider before you use these products. education on decrease to stopping nicotine products and stop smoking hotline given Quit - Yes [place] Tobacco Quitline Call a Smoking Quitline The [employer] [facility] [place] Smoking Quitline, (5-560-91B-QUIT) Smokefree.gov, which connects you with your State's Quitline, (3-311-KKMNFWH) [facility] Smoking Quitline, (7-614-IRZROAQ) 5. Cannabis use- discuss decrease use to stopping Cannabis Use Education Recommend decrease/stop cannabis use as it can negatively impact mood, motivation, anxiety, sleep, focus/concentrat ion/memory (vigilance, elasticity, processing and attention); can also contribute to development of psychosis. Recommend decrease/stop cannabis use as it may be negatively impacting mood, motivation, anxiety, sleep, focus; can also contribute to development of psychosis Cannabis/marijua na information: http_s://estrellita.ni h.gov/publicatio ns/drugfacts/can nabis-marijuana http_s://www.[employer]/can vkkdy-ove-ekqnks ie-populrlrr-imc d/ 6/ elevated blood pressure B/P EDUCATION-instru cted to call PCP or urgent care due to elevated blood pressure- patient will see a provider today discuss cardiovascular risk with elevated B/P ON RX educated on healthy b/p 120/80 monitor b/p at home refer to PCP, heart healthy diet and excise limit salt intake limit soda intake and caffiene increase water 7. 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 Suicidal thoughts denies S/HI no plans or intent passive thoughts for years no active thoughts educated on safety plan support system go to nearest ER with SI/HI plans or intent increase passive thoughts, active thoughts discuss and educated on [place] 150 mg at bedtime for depression and suicide prevention [place] education [place] use reviewed. Risks include risks of toxicity, arrhythmias, cognitive impairment, changes in muscle coordination, weight gain, thyroid and parathyroid changes, polydipsia and polyuria, alopecia, tremor and teratogenicity ( defects). Recommend avoid in females (use contraception consistently). Routine lab monitoring may be required. Patient consented to treatment. Indications: acute ronald (euphoric ronald), bipolar prophylaxis, bipolar depression treatment or augmentation, unipolar depression as augmentation with antidepressants Average dose = I,500 mg/day, target serum level 0.8 [place] is known to reduce risk of suicide. Mechanism of action: inhibits inositol monophosphatase, interfering with 2nd messengers Nuisance Side Effects: sedation, cognitive difficulties, decreased creativity, dry mouth, tremor, increased appetite, weight gain, polydipsia, polyuria, nausea, diarrhea, acne, alopecia Serious Side Effects: Thyroid: hypothyroidism (5%), goiter (3%) Cardiac: decrease in cardiac conduction leading to sick sinus syndrome, blocks SA node Teratogenicity: Ebstein's anomaly 2 in 1,000 Renal: chronic renal insufficiency (after 10-20 years), acute renal failure, polyuria occurs in 50-70% [lithium antagonizes anti-diuretic hormone (ADH)], diabetes insipidus in 10% (treat with amiloride) Drug-drug interactions: increase in lithium: NSAIDs, THELMA inhibitors, angiotensin II antagonists If you are planning on becoming , notify your health care provider so that he/she can best manage your medications. People living with bipolar disorder who wish to become face important decisions. It is important to discuss the risks and benefits of treatment with your doctor and caregivers. [place] has been associated with an increased risk of Ebstein's anomaly, a heart valve defect. Even though data suggest that the risk of Ebstein's anomaly from first trimester use of lithium is very low, an ultrasound of the heart is recommended at 16 to 20 weeks of gestation. [place] levels should be monitored monthly in early and weekly near delivery. Do not stop taking lithium without first speaking to your health care provider. Discontinuing mood stabilizer medications during has been associated with a significant increase in symptom relapse. If an overdose occurs call your doctor or 911. You may need urgent medical care. You may also contact the poison control center at . A specific treatment to reverse the effects of lithium does not exist, but there are treatments to decrease the effects of the medication. Only a doctor can determine if you require treatment. Avoid drinking alcohol or using illegal drugs while you are taking lithium. They may decrease the benefits (e.g., worsen your condition) and increase adverse effects (e.g., sedation) of the medication. Avoid low sodium diets and dehydration because this can increase the risk of lithium toxicity. Avoid over the counter and prescription pain medications that contain nonsteroidal anti-inflammator y medications (NSAIDS) such as ibuprofen (Motrin, Advil) or naproxen (Aleve, Naprosyn) because these medications can increase the risk of toxicity from lithium. Avoid excessive intake of caffeinated beverages, such as coffee, tea, cola or energy drinks, since these may decrease levels of lithium and decrease effectiveness of the medication. Discontinuing caffeine use may increase lithium levels. Consult your health care provider before reducing or stopping caffeine use. What are the possible side effects of lithium? Common side effects Headache Nausea or vomiting Diarrhea Dizziness or drowsiness Changes in appetite Hand tremors Dry mouth Increased thirst Increased urination Thinning of hair or hair loss Acne-like rash Rare/Serious side effects Signs of lithium toxicity include severe nausea and vomiting, severe hand tremors, confusion, vision changes, and unsteadiness while standing or walking. These symptoms need to be addressed immediately with a medical doctor to ensure your lithium level is not dangerously high. In rare cases, lithium may lead to a reversible condition known as diabetes insipidus. If this occurs you would notice a significant increase in thirst and how much fluid you drink and how much you urinate. Talk to your doctor if you notice you are urinating more frequently than usual. Are There Any Risks For Taking [place] For Long Periods Of Time? Hypothyroidism (low levels of thyroid hormone) may occur with long-term lithium use. Rare kidney problems have been associated with long-term use of lithium. The risk increases with high levels of lithium. Your doctor will monitor your kidney function at routine check-ups to ensure this does not occur. Summary of Black Box Warnings [place] Toxicity [place] toxicity is closely related to lithium blood levels and can occur at doses close to therapeutic levels; lithium levels should be monitored closely when starting the medication or if individuals experience side effects of the medication. discuss and educated on all rx Patient educated on all medications including potential benefits, side effects, risks. Educated on proper dosing schedule and importance of compliance educated on all medications, benefits, side effects and risk, and educated on depression, anxiety, and ADHD, mood d/o and educated on compliance of medications, metabolic and movement d/o education appointment's, continue therapy discussion with patient about course of treatment and patient instructions. education on serotonin syndrome Discussed and educated pt regarding benzodiazepines are generally not intended for prolonged use and that use can cause tolerance, dependence, depression, and associated memory issues including dementias (this list is not exhaustive). Benzodiazepine use is generally not recommended concurrently with pain medications and/or other controlled substances educated on all medications, benefits, side effects and risk, and educated on depression, anxiety, and ADHD, mood d/o and educated on compliance of medications, metabolic and movement d/o education appointment is, continue therapy discussion with patient about course of treatment and patient instructions. education on serotonin syndrome SSRI/SNRI side effects discussed including but not limited to, gastric upset, nausea, vomiting, diarrhea and/or constipation, weight changes, sexual side effects including loss of libido, increased suicidal thoughts/behavio rs in children and young adults, and serotonin syndrome. Second generation antipsychotics (SGAs) have metabolic syndrome issues with weight gain, increase in prolactin, increased waist circumference, increased lipids, and increased glucose. Thus routine monitoring of weight, metabolic labs, etc. is indicated. A general rank ordering of antipsychotics that have the greatest to the least risk of metabolic effects is olanzapine, quetiapine, risperidone, ziprasidone, and aripiprazole. However, weight gain can occur with all of these drugs and considerable variability exists among patients receiving the same drug regarding the risk of metabolic effects. Anti-psychotic agents not only increase the risk of metabolic disorder, they also increase the risk of CVA, akathisia, and movement disorders including EPS or tardive dyskinesia (more common with first generation antipsychotics) and more. websites http_s://www.[facility].nih.gov/health /topics/mental-h ealth-medication s http_s://www.nam i.org/About-Ment al-Illness/Treat ments/Mental-Hea lth-Medications http_s://www.nam i.org/About-Ment al-Illness/Menta c-Lectld-Uohgjxy ons http_s://psychYouWeb/depres myrna/the-cogniti ku-wyywoznu-tp-d epression#treatm ents http__s://www.[facility].nih.gov/healt h/topics/mental- health-medicatio ns http__s://www.na mi.org/About-Men prachi-Illness/Tamika tments/Mental-He alth-Medications http_s://estrellita. h.gov/publicatio ns/drugfacts/can nabis-marijuana http_s://www.[employer]/can vbwfn-tlb-jayuwr fi-dtlpptnsx-pjm d/ Medication Management and Follow-Up - Plan: - Schedule follow-up appointments every 1-3 months to monitor the patient's response to the medication regimen. - Reinforce the importance of avoiding recreational drug use due to potential neurotoxicity and interactions with prescribed medications. 07/20/2025 Nicotine use (ICD-10 - Z72.0) Quitting Tobacco: Care Instructions material was published, Stopping Smokeless Tobacco Use: Care Instructions material was published, Learning About Benefits of Quitting Smoking material was published, Deciding About Using Medicines To Quit Smoking material was published 1.Depression Cymbalta 60 mg daily in am - helping last month on rx Start [id number] at bedtime for depression and suicide prevention PCP prescribe rx discuss therapy options- pateint will wait at this time 2. Anxiety Cymbalta 60 mg daily in am 3.Poor Sleep hygeine Sleep Hygeine- - KEEP YOUR BEDROOM DARK - GET LOTS OF NATURAL LIGHT IN THE MORNING. - DON'T WORK ON YOUR COMPUTER OR PHONE LATE AT NIGHT. - AVOID NAPS DURING THE DAY. - NO CAFFEINE 3 HOURS OR MORE AFTER WAKE UP TIME. - ONLY USE YOUR BED FOR SLEEPING - GET A RELAXATION ROUTINE BEFORE BED. - IF YOU CAN'T GET TO SLEEP AFTER 15 TO 30 MINUTES GET OUT OF BED AND DO SOMETHING RELAXING. - DON'T DRINK ALCOHOL IN THE EVENING or limit alcohol to 1 drink. 4. Tobacco use Smoking Education Do not smoke. Nicotine and other chemicals in cigarettes and cigars can cause lung damage. Ask your healthcare provider for information if you currently smoke and need help to quit. E-cigarettes or smokeless tobacco still contain nicotine. Talk to your healthcare provider before you use these products. education on decrease to stopping nicotine products and stop smoking hotline given Quit - Yes [place] Tobacco Quitline Call a Smoking Quitline The [employer] [facility] [place] Smoking Quitline, (9-323-55X-QUIT) Smokefree.gov, which connects you with your State's Quitline, (9-460-YKVAAVU) [facility] Smoking Quitline, (4-885-EFFLWCK) 5. Cannabis use- discuss decrease use to stopping Cannabis Use Education Recommend decrease/stop cannabis use as it can negatively impact mood, motivation, anxiety, sleep, focus/concentrat ion/memory (vigilance, elasticity, processing and attention); can also contribute to development of psychosis. Recommend decrease/stop cannabis use as it may be negatively impacting mood, motivation, anxiety, sleep, focus; can also contribute to development of psychosis Cannabis/marijua na information: http_s://estrellita.ni h.gov/publicatio ns/drugfacts/can nabis-marijuana http_s://www.[employer]/can fjiot-qfw-ojiube rp-ugqugyhoo-ccm d/ 6/ elevated blood pressure B/P EDUCATION-instru cted to call PCP or urgent care due to elevated blood pressure- patient will see a provider today discuss cardiovascular risk with elevated B/P ON RX educated on healthy b/p 120/80 monitor b/p at home refer to PCP, heart healthy diet and excise limit salt intake limit soda intake and caffiene increase water 7. 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 Suicidal thoughts denies S/HI no plans or intent passive thoughts for years no active thoughts educated on safety plan support system go to nearest ER with SI/HI plans or intent increase passive thoughts, active thoughts discuss and educated on [place] 150 mg at bedtime for depression and suicide prevention [place] education [place] use reviewed. Risks include risks of toxicity, arrhythmias, cognitive impairment, changes in muscle coordination, weight gain, thyroid and parathyroid changes, polydipsia and polyuria, alopecia, tremor and teratogenicity ( defects). Recommend avoid in females (use contraception consistently). Routine lab monitoring may be required. Patient consented to treatment. Indications: acute ronald (euphoric ronald), bipolar prophylaxis, bipolar depression treatment or augmentation, unipolar depression as augmentation with antidepressants Average dose = I,500 mg/day, target serum level 0.8 [place] is known to reduce risk of suicide. Mechanism of action: inhibits inositol monophosphatase, interfering with 2nd messengers Nuisance Side Effects: sedation, cognitive difficulties, decreased creativity, dry mouth, tremor, increased appetite, weight gain, polydipsia, polyuria, nausea, diarrhea, acne, alopecia Serious Side Effects: Thyroid: hypothyroidism (5%), goiter (3%) Cardiac: decrease in cardiac conduction leading to sick sinus syndrome, blocks SA node Teratogenicity: Ebstein's anomaly 2 in 1,000 Renal: chronic renal insufficiency (after 10-20 years), acute renal failure, polyuria occurs in 50-70% [lithium antagonizes anti-diuretic hormone (ADH)], diabetes insipidus in 10% (treat with amiloride) Drug-drug interactions: increase in lithium: NSAIDs, THELMA inhibitors, angiotensin II antagonists If you are planning on becoming , notify your health care provider so that he/she can best manage your medications. People living with bipolar disorder who wish to become face important decisions. It is important to discuss the risks and benefits of treatment with your doctor and caregivers. [place] has been associated with an increased risk of Ebstein's anomaly, a heart valve defect. Even though data suggest that the risk of Ebstein's anomaly from first trimester use of lithium is very low, an ultrasound of the heart is recommended at 16 to 20 weeks of gestation. [place] levels should be monitored monthly in early and weekly near delivery. Do not stop taking lithium without first speaking to your health care provider. Discontinuing mood stabilizer medications during has been associated with a significant increase in symptom relapse. If an overdose occurs call your doctor or 911. You may need urgent medical care. You may also contact the poison control center at . A specific treatment to reverse the effects of lithium does not exist, but there are treatments to decrease the effects of the medication. Only a doctor can determine if you require treatment. Avoid drinking alcohol or using illegal drugs while you are taking lithium. They may decrease the benefits (e.g., worsen your condition) and increase adverse effects (e.g., sedation) of the medication. Avoid low sodium diets and dehydration because this can increase the risk of lithium toxicity. Avoid over the counter and prescription pain medications that contain nonsteroidal anti-inflammator y medications (NSAIDS) such as ibuprofen (Motrin, Advil) or naproxen (Aleve, Naprosyn) because these medications can increase the risk of toxicity from lithium. Avoid excessive intake of caffeinated beverages, such as coffee, tea, cola or energy drinks, since these may decrease levels of lithium and decrease effectiveness of the medication. Discontinuing caffeine use may increase lithium levels. Consult your health care provider before reducing or stopping caffeine use. What are the possible side effects of lithium? Common side effects Headache Nausea or vomiting Diarrhea Dizziness or drowsiness Changes in appetite Hand tremors Dry mouth Increased thirst Increased urination Thinning of hair or hair loss Acne-like rash Rare/Serious side effects Signs of lithium toxicity include severe nausea and vomiting, severe hand tremors, confusion, vision changes, and unsteadiness while standing or walking. These symptoms need to be addressed immediately with a medical doctor to ensure your lithium level is not dangerously high. In rare cases, lithium may lead to a reversible condition known as diabetes insipidus. If this occurs you would notice a significant increase in thirst and how much fluid you drink and how much you urinate. Talk to your doctor if you notice you are urinating more frequently than usual. Are There Any Risks For Taking [place] For Long Periods Of Time? Hypothyroidism (low levels of thyroid hormone) may occur with long-term lithium use. Rare kidney problems have been associated with long-term use of lithium. The risk increases with high levels of lithium. Your doctor will monitor your kidney function at routine check-ups to ensure this does not occur. Summary of Black Box Warnings [place] Toxicity [place] toxicity is closely related to lithium blood levels and can occur at doses close to therapeutic levels; lithium levels should be monitored closely when starting the medication or if individuals experience side effects of the medication. discuss and educated on all rx Patient educated on all medications including potential benefits, side effects, risks. Educated on proper dosing schedule and importance of compliance educated on all medications, benefits, side effects and risk, and educated on depression, anxiety, and ADHD, mood d/o and educated on compliance of medications, metabolic and movement d/o education appointment's, continue therapy discussion with patient about course of treatment and patient instructions. education on serotonin syndrome Discussed and educated pt regarding benzodiazepines are generally not intended for prolonged use and that use can cause tolerance, dependence, depression, and associated memory issues including dementias (this list is not exhaustive). Benzodiazepine use is generally not recommended concurrently with pain medications and/or other controlled substances educated on all medications, benefits, side effects and risk, and educated on depression, anxiety, and ADHD, mood d/o and educated on compliance of medications, metabolic and movement d/o education appointment is, continue therapy discussion with patient about course of treatment and patient instructions. education on serotonin syndrome SSRI/SNRI side effects discussed including but not limited to, gastric upset, nausea, vomiting, diarrhea and/or constipation, weight changes, sexual side effects including loss of libido, increased suicidal thoughts/behavio rs in children and young adults, and serotonin syndrome. Second generation antipsychotics (SGAs) have metabolic syndrome issues with weight gain, increase in prolactin, increased waist circumference, increased lipids, and increased glucose. Thus routine monitoring of weight, metabolic labs, etc. is indicated. A general rank ordering of antipsychotics that have the greatest to the least risk of metabolic effects is olanzapine, quetiapine, risperidone, ziprasidone, and aripiprazole. However, weight gain can occur with all of these drugs and considerable variability exists among patients receiving the same drug regarding the risk of metabolic effects. Anti-psychotic agents not only increase the risk of metabolic disorder, they also increase the risk of CVA, akathisia, and movement disorders including EPS or tardive dyskinesia (more common with first generation antipsychotics) and more. websites http_s://www.[facility].nih.gov/health /topics/mental-h ealth-medication s http_s://www.nam i.org/About-Ment al-Illness/Treat ments/Mental-Hea lth-Medications http_s://www.nam i.org/About-Ment al-Illness/Menta g-Ctmoyq-Yzodawg ons http_s://[employer]/depres myrna/the-cogniti mu-jyvpbmxg-hw-d epression#treatm ents http__s://www.ni .nih.gov/healt h/topics/mental- health-medicatio ns http__s://www.na mi.org/About-Men prachi-Illness/Tamika tments/Mental-He alth-Medications http_s://estrellita. h.gov/publicatio ns/drugfacts/can nabis-marijuana http_s://www.[employer]/can zaroy-ffq-rpweuh zx-qvccijqvd-zps d/ Medication Management and Follow-Up - Plan: - Schedule follow-up appointments every 1-3 months to monitor the patient's response to the medication regimen. - Reinforce the importance of avoiding recreational drug use due to potential neurotoxicity and interactions with prescribed medications. 08/09/2025 MDD (major depressive disorder), recurrent episode, moderate (ICD-10 - F33.1) Preventing Depression From Coming Back: Care Instructions material was published, Learning About Depression Screening material was published, Learning About Depression material was published, Depression Treatment: Care Instructions material was published, Seasonal Affective Disorder: Care Instructions material was published, Learning About Transcranial Magnetic Stimulation (TMS) material was published, Recovering From Depression: Care Instructions material was published, Depression and Chronic Disease: Care Instructions material was published, Learning About Antidepressants material was published, Deciding About Stopping Your Antidepressant material was published, Learning About How to Get Help During a Mental Health Crisis material was published, Suicidal Thoughts and Behavior: Care Instructions material was published, Suicidal Thoughts in a Family Member: Care Instructions material was published 1.Depression Cymbalta 60 mg daily in am - helping on rx - PCP fills [id number] at bedtime for depression and suicide prevention - helping discuss therapy options- pateint will wait at this time 2. Anxiety Cymbalta 60 mg daily in am- PCP fills 3.Poor Sleep hygeine Sleep Hygeine- - KEEP YOUR BEDROOM DARK - GET LOTS OF NATURAL LIGHT IN THE MORNING. - DON'T WORK ON YOUR COMPUTER OR PHONE LATE AT NIGHT. - AVOID NAPS DURING THE DAY. - NO CAFFEINE 3 HOURS OR MORE AFTER WAKE UP TIME. - ONLY USE YOUR BED FOR SLEEPING - GET A RELAXATION ROUTINE BEFORE BED. - IF YOU CAN'T GET TO SLEEP AFTER 15 TO 30 MINUTES GET OUT OF BED AND DO SOMETHING RELAXING. - DON'T DRINK ALCOHOL IN THE EVENING or limit alcohol to 1 drink. 4. Tobacco use Smoking Education Do not smoke. Nicotine and other chemicals in cigarettes and cigars can cause lung damage. Ask your healthcare provider for information if you currently smoke and need help to quit. E-cigarettes or smokeless tobacco still contain nicotine. Talk to your healthcare provider before you use these products. education on decrease to stopping nicotine products and stop smoking hotline given Quit - Yes [place] Tobacco Quitline Call a Smoking Quitline The [employer] [facility] [place]'s Smoking Quitline, (5-054-14P-QUIT) Smokefree.gov, which connects you with your [facility]'s Quitline, (7-374-RGMLQMY) Veterans Smoking Quitline, (5-685-ZOESOID) 5. Cannabis use- discuss decrease use to stopping Cannabis Use Education Recommend decrease/stop cannabis use as it can negatively impact mood, motivation, anxiety, sleep, focus/concentrat ion/memory (vigilance, elasticity, processing and attention); can also contribute to development of psychosis. Recommend decrease/stop cannabis use as it may be negatively impacting mood, motivation, anxiety, sleep, focus; can also contribute to development of psychosis Cannabis/marijua na information: http_s://estrellita.ni h.gov/publicatio ns/drugfacts/can nabis-marijuana http_s://www.[employer]/can lqfwo-gky-zpbiik oz-cgcscpohm-vuh d/ 6/ elevated blood pressure B/P EDUCATION-instru cted to call PCP or urgent care due to elevated blood pressure- patient will see a provider Radha on RX B/P discuss cardiovascular risk with elevated B/P ON RX educated on healthy b/p 120/80 monitor b/p at home refer to PCP, heart healthy diet and excise limit salt intake limit soda intake and caffiene increase water 7. 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 Suicidal thoughts denies S/HI no plans or intent passive thoughts for years no active thoughts educated on 301 safety plan support system go to nearest ER with SI/HI plans or intent increase passive thoughts, active thoughts discuss and educated on [place] 150 mg at bedtime for depression and suicide prevention [place] education [place] use reviewed. Risks include risks of toxicity, arrhythmias, cognitive impairment, changes in muscle coordination, weight gain, thyroid and parathyroid changes, polydipsia and polyuria, alopecia, tremor and teratogenicity ( defects). Recommend avoid in females (use contraception consistently). Routine lab monitoring may be required. Patient consented to treatment. Indications: acute ronald (euphoric ronald), bipolar prophylaxis, bipolar depression treatment or augmentation, unipolar depression as augmentation with antidepressants Average dose = I,500 mg/day, target serum level 0.8 [place] is known to reduce risk of suicide. Mechanism of action: inhibits inositol monophosphatase, interfering with 2nd messengers Nuisance Side Effects: sedation, cognitive difficulties, decreased creativity, dry mouth, tremor, increased appetite, weight gain, polydipsia, polyuria, nausea, diarrhea, acne, alopecia Serious Side Effects: Thyroid: hypothyroidism (5%), goiter (3%) Cardiac: decrease in cardiac conduction leading to sick sinus syndrome, blocks SA node Teratogenicity: Ebstein's anomaly 2 in 1,000 Renal: chronic renal insufficiency (after 10-20 years), acute renal failure, polyuria occurs in 50-70% [lithium antagonizes anti-diuretic hormone (ADH)], diabetes insipidus in 10% (treat with amiloride) Drug-drug interactions: increase in lithium: NSAIDs, THELMA inhibitors, angiotensin II antagonists If you are planning on becoming , notify your health care provider so that he/she can best manage your medications. People living with bipolar disorder who wish to become face important decisions. It is important to discuss the risks and benefits of treatment with your doctor and caregivers. [place] has been associated with an increased risk of Ebstein's anomaly, a heart valve defect. Even though data suggest that the risk of Ebstein's anomaly from first trimester use of lithium is very low, an ultrasound of the heart is recommended at 16 to 20 weeks of gestation. [place] levels should be monitored monthly in early and weekly near delivery. Do not stop taking lithium without first speaking to your health care provider. Discontinuing mood stabilizer medications during has been associated with a significant increase in symptom relapse. If an overdose occurs call your doctor or 911. You may need urgent medical care. You may also contact the poison control center at . A specific treatment to reverse the effects of lithium does not exist, but there are treatments to decrease the effects of the medication. Only a doctor can determine if you require treatment. Avoid drinking alcohol or using illegal drugs while you are taking lithium. They may decrease the benefits (e.g., worsen your condition) and increase adverse effects (e.g., sedation) of the medication. Avoid low sodium diets and dehydration because this can increase the risk of lithium toxicity. Avoid over the counter and prescription pain medications that contain nonsteroidal anti-inflammator y medications (NSAIDS) such as ibuprofen (Motrin, Advil) or naproxen (Aleve, Naprosyn) because these medications can increase the risk of toxicity from lithium. Avoid excessive intake of caffeinated beverages, such as coffee, tea, cola or energy drinks, since these may decrease levels of lithium and decrease effectiveness of the medication. Discontinuing caffeine use may increase lithium levels. Consult your health care provider before reducing or stopping caffeine use. What are the possible side effects of lithium? Common side effects Headache Nausea or vomiting Diarrhea Dizziness or drowsiness Changes in appetite Hand tremors Dry mouth Increased thirst Increased urination Thinning of hair or hair loss Acne-like rash Rare/Serious side effects Signs of lithium toxicity include severe nausea and vomiting, severe hand tremors, confusion, vision changes, and unsteadiness while standing or walking. These symptoms need to be addressed immediately with a medical doctor to ensure your lithium level is not dangerously high. In rare cases, lithium may lead to a reversible condition known as diabetes insipidus. If this occurs you would notice a significant increase in thirst and how much fluid you drink and how much you urinate. Talk to your doctor if you notice you are urinating more frequently than usual. Are There Any Risks For Taking [place] For Long Periods Of Time? Hypothyroidism (low levels of thyroid hormone) may occur with long-term lithium use. Rare kidney problems have been associated with long-term use of lithium. The risk increases with high levels of lithium. Your doctor will monitor your kidney function at routine check-ups to ensure this does not occur. Summary of Black Box Warnings [place] Toxicity [place] toxicity is closely related to lithium blood levels and can occur at doses close to therapeutic levels; lithium levels should be monitored closely when starting the medication or if individuals experience side effects of the medication. discuss and educated on all rx Patient educated on all medications including potential benefits, side effects, risks. Educated on proper dosing schedule and importance of compliance educated on all medications, benefits, side effects and risk, and educated on depression, anxiety, and ADHD, mood d/o and educated on compliance of medications, metabolic and movement d/o education appointment's, continue therapy discussion with patient about course of treatment and patient instructions. education on serotonin syndrome Discussed and educated pt regarding benzodiazepines are generally not intended for prolonged use and that use can cause tolerance, dependence, depression, and associated memory issues including dementias (this list is not exhaustive). Benzodiazepine use is generally not recommended concurrently with pain medications and/or other controlled substances educated on all medications, benefits, side effects and risk, and educated on depression, anxiety, and ADHD, mood d/o and educated on compliance of medications, metabolic and movement d/o education appointment is, continue therapy discussion with patient about course of treatment and patient instructions. education on serotonin syndrome SSRI/SNRI side effects discussed including but not limited to, gastric upset, nausea, vomiting, diarrhea and/or constipation, weight changes, sexual side effects including loss of libido, increased suicidal thoughts/behavio rs in children and young adults, and serotonin syndrome. Second generation antipsychotics (SGAs) have metabolic syndrome issues with weight gain, increase in prolactin, increased waist circumference, increased lipids, and increased glucose. Thus routine monitoring of weight, metabolic labs, etc. is indicated. A general rank ordering of antipsychotics that have the greatest to the least risk of metabolic effects is olanzapine, quetiapine, risperidone, ziprasidone, and aripiprazole. However, weight gain can occur with all of these drugs and considerable variability exists among patients receiving the same drug regarding the risk of metabolic effects. Anti-psychotic agents not only increase the risk of metabolic disorder, they also increase the risk of CVA, akathisia, and movement disorders including EPS or tardive dyskinesia (more common with first generation antipsychotics) and more. websites http_s://www.[facility].nih.gov/health /topics/mental-h ealth-medication s http_s://www.nam i.org/About-Ment al-Illness/Treat ments/Mental-Hea lth-Medications http_s://www.nam i.org/About-Ment al-Illness/Menta a-Abvunv-Qawealh ons http_s://[employer]/deprvika myrna/the-cogniti wh-xhylmrej-fp-d epression#treatm ents http__s://www.[facility].nih.gov/healt h/topics/mental- health-medicatio ns http__s://www.na mi.org/About-Men prachi-Illness/Tamika tments/Mental-He alth-Medications http_s://estrellita. h.gov/publicatio ns/drugfacts/can nabis-marijuana http_s://www.[employer]/can wyzqn-iqu-rubdjb lu-oyalddbdu-tho d/ Medication Management and Follow-Up - Plan: - Schedule follow-up appointments every 1-3 months to monitor the patient's response to the medication regimen. - Reinforce the importance of avoiding recreational drug use due to potential neurotoxicity and interactions with prescribed medications. 08/09/2025 Nicotine use (ICD-10 - Z72.0) Quitting Tobacco: Care Instructions material was published, Stopping Smokeless Tobacco Use: Care Instructions material was published, Learning About Benefits of Quitting Smoking material was published, Deciding About Using Medicines To Quit Smoking material was published 1.Depression Cymbalta 60 mg daily in am - helping on rx - PCP fills [id number] at bedtime for depression and suicide prevention - helping discuss therapy options- pateint will wait at this time 2. Anxiety Cymbalta 60 mg daily in am- PCP fills 3.Poor Sleep hygeine Sleep Hygeine- - KEEP YOUR BEDROOM DARK - GET LOTS OF NATURAL LIGHT IN THE MORNING. - DON'T WORK ON YOUR COMPUTER OR PHONE LATE AT NIGHT. - AVOID NAPS DURING THE DAY. - NO CAFFEINE 3 HOURS OR MORE AFTER WAKE UP TIME. - ONLY USE YOUR BED FOR SLEEPING - GET A RELAXATION ROUTINE BEFORE BED. - IF YOU CAN'T GET TO SLEEP AFTER 15 TO 30 MINUTES GET OUT OF BED AND DO SOMETHING RELAXING. - DON'T DRINK ALCOHOL IN THE EVENING or limit alcohol to 1 drink. 4. Tobacco use Smoking Education Do not smoke. Nicotine and other chemicals in cigarettes and cigars can cause lung damage. Ask your healthcare provider for information if you currently smoke and need help to quit. E-cigarettes or smokeless tobacco still contain nicotine. Talk to your healthcare provider before you use these products. education on decrease to stopping nicotine products and stop smoking hotline given Quit - Yes [place] Tobacco Quitline Call a Smoking Quitline The [employer] [facility] [place]'s Smoking Quitline, (7-616-46W-QUIT) Smokefree.gov, which connects you with your [facility]'s Quitline, (2-618-WQUNNFL) Veterans Smoking Quitline, (2-098-XNYNUJI) 5. Cannabis use- discuss decrease use to stopping Cannabis Use Education Recommend decrease/stop cannabis use as it can negatively impact mood, motivation, anxiety, sleep, focus/concentrat ion/memory (vigilance, elasticity, processing and attention); can also contribute to development of psychosis. Recommend decrease/stop cannabis use as it may be negatively impacting mood, motivation, anxiety, sleep, focus; can also contribute to development of psychosis Cannabis/marijua na information: http_s://estrellita.ni h.gov/publicatio ns/drugfacts/can nabis-marijuana http_s://www.[employer]/can cteat-ysb-karulv ma-rmjqyrrjc-iys d/ 6/ elevated blood pressure B/P EDUCATION-instru cted to call PCP or urgent care due to elevated blood pressure- patient will see a provider Wednesday on RX B/P discuss cardiovascular risk with elevated B/P ON RX educated on healthy b/p 120/80 monitor b/p at home refer to PCP, heart healthy diet and excise limit salt intake limit soda intake and caffiene increase water 7. 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 Suicidal thoughts denies S/HI no plans or intent passive thoughts for years no active thoughts educated on 98 safety plan support system go to nearest ER with SI/HI plans or intent increase passive thoughts, active thoughts discuss and educated on [place] 150 mg at bedtime for depression and suicide prevention [place] education [place] use reviewed. Risks include risks of toxicity, arrhythmias, cognitive impairment, changes in muscle coordination, weight gain, thyroid and parathyroid changes, polydipsia and polyuria, alopecia, tremor and teratogenicity ( defects). Recommend avoid in females (use contraception consistently). Routine lab monitoring may be required. Patient consented to treatment. Indications: acute ronald (euphoric ronald), bipolar prophylaxis, bipolar depression treatment or augmentation, unipolar depression as augmentation with antidepressants Average dose = I,500 mg/day, target serum level 0.8 [place] is known to reduce risk of suicide. Mechanism of action: inhibits inositol monophosphatase, interfering with 2nd messengers Nuisance Side Effects: sedation, cognitive difficulties, decreased creativity, dry mouth, tremor, increased appetite, weight gain, polydipsia, polyuria, nausea, diarrhea, acne, alopecia Serious Side Effects: Thyroid: hypothyroidism (5%), goiter (3%) Cardiac: decrease in cardiac conduction leading to sick sinus syndrome, blocks SA node Teratogenicity: Ebstein's anomaly 2 in 1,000 Renal: chronic renal insufficiency (after 10-20 years), acute renal failure, polyuria occurs in 50-70% [lithium antagonizes anti-diuretic hormone (ADH)], diabetes insipidus in 10% (treat with amiloride) Drug-drug interactions: increase in lithium: NSAIDs, THELMA inhibitors, angiotensin II antagonists If you are planning on becoming , notify your health care provider so that he/she can best manage your medications. People living with bipolar disorder who wish to become face important decisions. It is important to discuss the risks and benefits of treatment with your doctor and caregivers. [place] has been associated with an increased risk of Ebstein's anomaly, a heart valve defect. Even though data suggest that the risk of Ebstein's anomaly from first trimester use of lithium is very low, an ultrasound of the heart is recommended at 16 to 20 weeks of gestation. [place] levels should be monitored monthly in early and weekly near delivery. Do not stop taking lithium without first speaking to your health care provider. Discontinuing mood stabilizer medications during has been associated with a significant increase in symptom relapse. If an overdose occurs call your doctor or 911. You may need urgent medical care. You may also contact the poison control center at . A specific treatment to reverse the effects of lithium does not exist, but there are treatments to decrease the effects of the medication. Only a doctor can determine if you require treatment. Avoid drinking alcohol or using illegal drugs while you are taking lithium. They may decrease the benefits (e.g., worsen your condition) and increase adverse effects (e.g., sedation) of the medication. Avoid low sodium diets and dehydration because this can increase the risk of lithium toxicity. Avoid over the counter and prescription pain medications that contain nonsteroidal anti-inflammator y medications (NSAIDS) such as ibuprofen (Motrin, Advil) or naproxen (Aleve, Naprosyn) because these medications can increase the risk of toxicity from lithium. Avoid excessive intake of caffeinated beverages, such as coffee, tea, cola or energy drinks, since these may decrease levels of lithium and decrease effectiveness of the medication. Discontinuing caffeine use may increase lithium levels. Consult your health care provider before reducing or stopping caffeine use. What are the possible side effects of lithium? Common side effects Headache Nausea or vomiting Diarrhea Dizziness or drowsiness Changes in appetite Hand tremors Dry mouth Increased thirst Increased urination Thinning of hair or hair loss Acne-like rash Rare/Serious side effects Signs of lithium toxicity include severe nausea and vomiting, severe hand tremors, confusion, vision changes, and unsteadiness while standing or walking. These symptoms need to be addressed immediately with a medical doctor to ensure your lithium level is not dangerously high. In rare cases, lithium may lead to a reversible condition known as diabetes insipidus. If this occurs you would notice a significant increase in thirst and how much fluid you drink and how much you urinate. Talk to your doctor if you notice you are urinating more frequently than usual. Are There Any Risks For Taking [place] For Long Periods Of Time? Hypothyroidism (low levels of thyroid hormone) may occur with long-term lithium use. Rare kidney problems have been associated with long-term use of lithium. The risk increases with high levels of lithium. Your doctor will monitor your kidney function at routine check-ups to ensure this does not occur. Summary of Black Box Warnings [place] Toxicity [place] toxicity is closely related to lithium blood levels and can occur at doses close to therapeutic levels; lithium levels should be monitored closely when starting the medication or if individuals experience side effects of the medication. discuss and educated on all rx Patient educated on all medications including potential benefits, side effects, risks. Educated on proper dosing schedule and importance of compliance educated on all medications, benefits, side effects and risk, and educated on depression, anxiety, and ADHD, mood d/o and educated on compliance of medications, metabolic and movement d/o education appointment's, continue therapy discussion with patient about course of treatment and patient instructions. education on serotonin syndrome Discussed and educated pt regarding benzodiazepines are generally not intended for prolonged use and that use can cause tolerance, dependence, depression, and associated memory issues including dementias (this list is not exhaustive). Benzodiazepine use is generally not recommended concurrently with pain medications and/or other controlled substances educated on all medications, benefits, side effects and risk, and educated on depression, anxiety, and ADHD, mood d/o and educated on compliance of medications, metabolic and movement d/o education appointment is, continue therapy discussion with patient about course of treatment and patient instructions. education on serotonin syndrome SSRI/SNRI side effects discussed including but not limited to, gastric upset, nausea, vomiting, diarrhea and/or constipation, weight changes, sexual side effects including loss of libido, increased suicidal thoughts/behavio rs in children and young adults, and serotonin syndrome. Second generation antipsychotics (SGAs) have metabolic syndrome issues with weight gain, increase in prolactin, increased waist circumference, increased lipids, and increased glucose. Thus routine monitoring of weight, metabolic labs, etc. is indicated. A general rank ordering of antipsychotics that have the greatest to the least risk of metabolic effects is olanzapine, quetiapine, risperidone, ziprasidone, and aripiprazole. However, weight gain can occur with all of these drugs and considerable variability exists among patients receiving the same drug regarding the risk of metabolic effects. Anti-psychotic agents not only increase the risk of metabolic disorder, they also increase the risk of CVA, akathisia, and movement disorders including EPS or tardive dyskinesia (more common with first generation antipsychotics) and more. websites http_s://www.[facility].nih.gov/health /topics/mental-h ealth-medication s http_s://www.nam i.org/About-Ment al-Illness/Treat ments/Mental-Hea lth-Medications http_s://www.nam i.org/About-Ment al-Illness/Menta i-Kqaofu-Mkjcxss ons http_s://[employer]/deprvika myrna/the-cogniti af-daglokdy-ro-d epression#treatm ents http__s://www.[facility].nih.gov/healt h/topics/mental- health-medicatio ns http__s://www.na mi.org/About-Men prachi-Illness/Tamika tments/Mental-He alth-Medications http_s://estrellita. h.gov/publicatio ns/drugfacts/can nabis-marijuana http_s://www.[employer]/can vxnev-ekt-pjcilz fr-nnoqzielu-toc d/ Medication Management and Follow-Up - Plan: - Schedule follow-up appointments every 1-3 months to monitor the patient's response to the medication regimen. - Reinforce the importance of avoiding recreational drug use due to potential neurotoxicity and interactions with prescribed medications. 08/09/2025 Marijuana use (ICD-10 - F12.90) Marijuana Use: Care Instructions material was published, Learning About Cannabis Use Disorder material was published 1.Depression Cymbalta 60 mg daily in am - helping on rx - PCP fills [id number] at bedtime for depression and suicide prevention - helping discuss therapy options- pateint will wait at this time 2. Anxiety Cymbalta 60 mg daily in am- PCP fills 3.Poor Sleep hygeine Sleep Hygeine- - KEEP YOUR BEDROOM DARK - GET LOTS OF NATURAL LIGHT IN THE MORNING. - DON'T WORK ON YOUR COMPUTER OR PHONE LATE AT NIGHT. - AVOID NAPS DURING THE DAY. - NO CAFFEINE 3 HOURS OR MORE AFTER WAKE UP TIME. - ONLY USE YOUR BED FOR SLEEPING - GET A RELAXATION ROUTINE BEFORE BED. - IF YOU CAN'T GET TO SLEEP AFTER 15 TO 30 MINUTES GET OUT OF BED AND DO SOMETHING RELAXING. - DON'T DRINK ALCOHOL IN THE EVENING or limit alcohol to 1 drink. 4. Tobacco use Smoking Education Do not smoke. Nicotine and other chemicals in cigarettes and cigars can cause lung damage. Ask your healthcare provider for information if you currently smoke and need help to quit. E-cigarettes or smokeless tobacco still contain nicotine. Talk to your healthcare provider before you use these products. education on decrease to stopping nicotine products and stop smoking hotline given Quit - Yes [place] Tobacco Quitline Call a Smoking Quitline The [employer] [facility] [place]'s Smoking Quitline, (7-975-22B-QUIT) Smokefree.gov, which connects you with your [facility]'s Quitline, (4-809-AECJBNT) [facility] Smoking Quitline, (7-469-SIRWMUC) 5. Cannabis use- discuss decrease use to stopping Cannabis Use Education Recommend decrease/stop cannabis use as it can negatively impact mood, motivation, anxiety, sleep, focus/concentrat ion/memory (vigilance, elasticity, processing and attention); can also contribute to development of psychosis. Recommend decrease/stop cannabis use as it may be negatively impacting mood, motivation, anxiety, sleep, focus; can also contribute to development of psychosis Cannabis/marijua na information: http_s://estrellita.ni h.gov/publicatio ns/drugfacts/can nabis-marijuana http_s://www.[employer]/can euokz-wor-naipdb no-kyksgtkuq-qdp d/ 6/ elevated blood pressure B/P EDUCATION-instru cted to call PCP or urgent care due to elevated blood pressure- patient will see a provider Wednesday on RX B/P discuss cardiovascular risk with elevated B/P ON RX educated on healthy b/p 120/80 monitor b/p at home refer to PCP, heart healthy diet and excise limit salt intake limit soda intake and caffiene increase water 7. 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 Suicidal thoughts denies S/HI no plans or intent passive thoughts for years no active thoughts educated on 554/911 safety plan support system go to nearest ER with SI/HI plans or intent increase passive thoughts, active thoughts discuss and educated on [place] 150 mg at bedtime for depression and suicide prevention [place] education [place] use reviewed. Risks include risks of toxicity, arrhythmias, cognitive impairment, changes in muscle coordination, weight gain, thyroid and parathyroid changes, polydipsia and polyuria, alopecia, tremor and teratogenicity ( defects). Recommend avoid in females (use contraception consistently). Routine lab monitoring may be required. Patient consented to treatment. Indications: acute ronald (euphoric ronald), bipolar prophylaxis, bipolar depression treatment or augmentation, unipolar depression as augmentation with antidepressants Average dose = I,500 mg/day, target serum level 0.8 [place] is known to reduce risk of suicide. Mechanism of action: inhibits inositol monophosphatase, interfering with 2nd messengers Nuisance Side Effects: sedation, cognitive difficulties, decreased creativity, dry mouth, tremor, increased appetite, weight gain, polydipsia, polyuria, nausea, diarrhea, acne, alopecia Serious Side Effects: Thyroid: hypothyroidism (5%), goiter (3%) Cardiac: decrease in cardiac conduction leading to sick sinus syndrome, blocks SA node Teratogenicity: Ebstein's anomaly 2 in 1,000 Renal: chronic renal insufficiency (after 10-20 years), acute renal failure, polyuria occurs in 50-70% [lithium antagonizes anti-diuretic hormone (ADH)], diabetes insipidus in 10% (treat with amiloride) Drug-drug interactions: increase in lithium: NSAIDs, THELMA inhibitors, angiotensin II antagonists If you are planning on becoming , notify your health care provider so that he/she can best manage your medications. People living with bipolar disorder who wish to become face important decisions. It is important to discuss the risks and benefits of treatment with your doctor and caregivers. [place] has been associated with an increased risk of Ebstein's anomaly, a heart valve defect. Even though data suggest that the risk of Ebstein's anomaly from first trimester use of lithium is very low, an ultrasound of the heart is recommended at 16 to 20 weeks of gestation. [place] levels should be monitored monthly in early and weekly near delivery. Do not stop taking lithium without first speaking to your health care provider. Discontinuing mood stabilizer medications during has been associated with a significant increase in symptom relapse. If an overdose occurs call your doctor or 911. You may need urgent medical care. You may also contact the poison control center at . A specific treatment to reverse the effects of lithium does not exist, but there are treatments to decrease the effects of the medication. Only a doctor can determine if you require treatment. Avoid drinking alcohol or using illegal drugs while you are taking lithium. They may decrease the benefits (e.g., worsen your condition) and increase adverse effects (e.g., sedation) of the medication. Avoid low sodium diets and dehydration because this can increase the risk of lithium toxicity. Avoid over the counter and prescription pain medications that contain nonsteroidal anti-inflammator y medications (NSAIDS) such as ibuprofen (Motrin, Advil) or naproxen (Aleve, Naprosyn) because these medications can increase the risk of toxicity from lithium. Avoid excessive intake of caffeinated beverages, such as coffee, tea, cola or energy drinks, since these may decrease levels of lithium and decrease effectiveness of the medication. Discontinuing caffeine use may increase lithium levels. Consult your health care provider before reducing or stopping caffeine use. What are the possible side effects of lithium? Common side effects Headache Nausea or vomiting Diarrhea Dizziness or drowsiness Changes in appetite Hand tremors Dry mouth Increased thirst Increased urination Thinning of hair or hair loss Acne-like rash Rare/Serious side effects Signs of lithium toxicity include severe nausea and vomiting, severe hand tremors, confusion, vision changes, and unsteadiness while standing or walking. These symptoms need to be addressed immediately with a medical doctor to ensure your lithium level is not dangerously high. In rare cases, lithium may lead to a reversible condition known as diabetes insipidus. If this occurs you would notice a significant increase in thirst and how much fluid you drink and how much you urinate. Talk to your doctor if you notice you are urinating more frequently than usual. Are There Any Risks For Taking [place] For Long Periods Of Time? Hypothyroidism (low levels of thyroid hormone) may occur with long-term lithium use. Rare kidney problems have been associated with long-term use of lithium. The risk increases with high levels of lithium. Your doctor will monitor your kidney function at routine check-ups to ensure this does not occur. Summary of Black Box Warnings [place] Toxicity [place] toxicity is closely related to lithium blood levels and can occur at doses close to therapeutic levels; lithium levels should be monitored closely when starting the medication or if individuals experience side effects of the medication. discuss and educated on all rx Patient educated on all medications including potential benefits, side effects, risks. Educated on proper dosing schedule and importance of compliance educated on all medications, benefits, side effects and risk, and educated on depression, anxiety, and ADHD, mood d/o and educated on compliance of medications, metabolic and movement d/o education appointment's, continue therapy discussion with patient about course of treatment and patient instructions. education on serotonin syndrome Discussed and educated pt regarding benzodiazepines are generally not intended for prolonged use and that use can cause tolerance, dependence, depression, and associated memory issues including dementias (this list is not exhaustive). Benzodiazepine use is generally not recommended concurrently with pain medications and/or other controlled substances educated on all medications, benefits, side effects and risk, and educated on depression, anxiety, and ADHD, mood d/o and educated on compliance of medications, metabolic and movement d/o education appointment is, continue therapy discussion with patient about course of treatment and patient instructions. education on serotonin syndrome SSRI/SNRI side effects discussed including but not limited to, gastric upset, nausea, vomiting, diarrhea and/or constipation, weight changes, sexual side effects including loss of libido, increased suicidal thoughts/behavio rs in children and young adults, and serotonin syndrome. Second generation antipsychotics (SGAs) have metabolic syndrome issues with weight gain, increase in prolactin, increased waist circumference, increased lipids, and increased glucose. Thus routine monitoring of weight, metabolic labs, etc. is indicated. A general rank ordering of antipsychotics that have the greatest to the least risk of metabolic effects is olanzapine, quetiapine, risperidone, ziprasidone, and aripiprazole. However, weight gain can occur with all of these drugs and considerable variability exists among patients receiving the same drug regarding the risk of metabolic effects. Anti-psychotic agents not only increase the risk of metabolic disorder, they also increase the risk of CVA, akathisia, and movement disorders including EPS or tardive dyskinesia (more common with first generation antipsychotics) and more. websites http_s://www.nim h.nih.gov/health /topics/mental-h ealth-medication s http_s://www.nam i.org/About-Ment al-Illness/Treat ments/Mental-Hea lth-Medications http_s://www.nam i.org/About-Ment al-Illness/Menta b-Hykgdc-Lgffiny ons http_s://[employer]/depres myrna/the-cogniti rm-jtckbsak-zc-d epression#treatm ents http__s://www.[facility].nih.gov/healt h/topics/mental- health-medicatio ns http__s://www.na mi.org/About-Men prachi-Illness/Tamika tments/Mental-He alth-Medications http_s://estrellita. h.gov/publicatio ns/drugfacts/can nabis-marijuana http_s://www.[employer]/can yapzi-xcg-gbefws rm-oaysvkdol-rcx d/ Medication Management and Follow-Up - Plan: - Schedule follow-up appointments every 1-3 months to monitor the patient's response to the medication regimen. - Reinforce the importance of avoiding recreational drug use due to potential neurotoxicity and interactions with prescribed medications. 07/20/2025 Marijuana use (ICD-10 - F12.90) Marijuana Use: Care Instructions material was published, Learning About Cannabis Use Disorder material was published 1.Depression Cymbalta 60 mg daily in am - helping last month on rx Start [id number] at bedtime for depression and suicide prevention PCP prescribe rx discuss therapy options- pateint will wait at this time 2. Anxiety Cymbalta 60 mg daily in am 3.Poor Sleep hygeine Sleep Hygeine- - KEEP YOUR BEDROOM DARK - GET LOTS OF NATURAL LIGHT IN THE MORNING. - DON'T WORK ON YOUR COMPUTER OR PHONE LATE AT NIGHT. - AVOID NAPS DURING THE DAY. - NO CAFFEINE 3 HOURS OR MORE AFTER WAKE UP TIME. - ONLY USE YOUR BED FOR SLEEPING - GET A RELAXATION ROUTINE BEFORE BED. - IF YOU CAN'T GET TO SLEEP AFTER 15 TO 30 MINUTES GET OUT OF BED AND DO SOMETHING RELAXING. - DON'T DRINK ALCOHOL IN THE EVENING or limit alcohol to 1 drink. 4. Tobacco use Smoking Education Do not smoke. Nicotine and other chemicals in cigarettes and cigars can cause lung damage. Ask your healthcare provider for information if you currently smoke and need help to quit. E-cigarettes or smokeless tobacco still contain nicotine. Talk to your healthcare provider before you use these products. education on decrease to stopping nicotine products and stop smoking hotline given Quit - Yes [place] Tobacco Quitline Call a Smoking Quitline The [employer] [facility] [place] Smoking Quitline, (8-878-61O-QUIT) Smokefree.gov, which connects you with your State's Quitline, (8-646-IAWXIBN) [facility] Smoking Quitline, (3-974-VQNKVWX) 5. Cannabis use- discuss decrease use to stopping Cannabis Use Education Recommend decrease/stop cannabis use as it can negatively impact mood, motivation, anxiety, sleep, focus/concentrat ion/memory (vigilance, elasticity, processing and attention); can also contribute to development of psychosis. Recommend decrease/stop cannabis use as it may be negatively impacting mood, motivation, anxiety, sleep, focus; can also contribute to development of psychosis Cannabis/marijua na information: http_s://estrellita.ni h.gov/publicatio ns/drugfacts/can nabis-marijuana http_s://www.[employer]/can vwihl-csj-jajqpt lg-vommuclnu-jsg d/ 6/ elevated blood pressure B/P EDUCATION-instru cted to call PCP or urgent care due to elevated blood pressure- patient will see a provider today discuss cardiovascular risk with elevated B/P ON RX educated on healthy b/p 120/80 monitor b/p at home refer to PCP, heart healthy diet and excise limit salt intake limit soda intake and caffiene increase water 7. 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 Suicidal thoughts denies S/HI no plans or intent passive thoughts for years no active thoughts educated on safety plan support system go to nearest ER with SI/HI plans or intent increase passive thoughts, active thoughts discuss and educated on [place] 150 mg at bedtime for depression and suicide prevention [place] education [place] use reviewed. Risks include risks of toxicity, arrhythmias, cognitive impairment, changes in muscle coordination, weight gain, thyroid and parathyroid changes, polydipsia and polyuria, alopecia, tremor and teratogenicity ( defects). Recommend avoid in females (use contraception consistently). Routine lab monitoring may be required. Patient consented to treatment. Indications: acute ronald (euphoric ronald), bipolar prophylaxis, bipolar depression treatment or augmentation, unipolar depression as augmentation with antidepressants Average dose = I,500 mg/day, target serum level 0.8 [place] is known to reduce risk of suicide. Mechanism of action: inhibits inositol monophosphatase, interfering with 2nd messengers Nuisance Side Effects: sedation, cognitive difficulties, decreased creativity, dry mouth, tremor, increased appetite, weight gain, polydipsia, polyuria, nausea, diarrhea, acne, alopecia Serious Side Effects: Thyroid: hypothyroidism (5%), goiter (3%) Cardiac: decrease in cardiac conduction leading to sick sinus syndrome, blocks SA node Teratogenicity: Ebstein's anomaly 2 in 1,000 Renal: chronic renal insufficiency (after 10-20 years), acute renal failure, polyuria occurs in 50-70% [lithium antagonizes anti-diuretic hormone (ADH)], diabetes insipidus in 10% (treat with amiloride) Drug-drug interactions: increase in lithium: NSAIDs, THELMA inhibitors, angiotensin II antagonists If you are planning on becoming , notify your health care provider so that he/she can best manage your medications. People living with bipolar disorder who wish to become face important decisions. It is important to discuss the risks and benefits of treatment with your doctor and caregivers. [place] has been associated with an increased risk of Ebstein's anomaly, a heart valve defect. Even though data suggest that the risk of Ebstein's anomaly from first trimester use of lithium is very low, an ultrasound of the heart is recommended at 16 to 20 weeks of gestation. [place] levels should be monitored monthly in early and weekly near delivery. Do not stop taking lithium without first speaking to your health care provider. Discontinuing mood stabilizer medications during has been associated with a significant increase in symptom relapse. If an overdose occurs call your doctor or 911. You may need urgent medical care. You may also contact the poison control center at . A specific treatment to reverse the effects of lithium does not exist, but there are treatments to decrease the effects of the medication. Only a doctor can determine if you require treatment. Avoid drinking alcohol or using illegal drugs while you are taking lithium. They may decrease the benefits (e.g., worsen your condition) and increase adverse effects (e.g., sedation) of the medication. Avoid low sodium diets and dehydration because this can increase the risk of lithium toxicity. Avoid over the counter and prescription pain medications that contain nonsteroidal anti-inflammator y medications (NSAIDS) such as ibuprofen (Motrin, Advil) or naproxen (Aleve, Naprosyn) because these medications can increase the risk of toxicity from lithium. Avoid excessive intake of caffeinated beverages, such as coffee, tea, cola or energy drinks, since these may decrease levels of lithium and decrease effectiveness of the medication. Discontinuing caffeine use may increase lithium levels. Consult your health care provider before reducing or stopping caffeine use. What are the possible side effects of lithium? Common side effects Headache Nausea or vomiting Diarrhea Dizziness or drowsiness Changes in appetite Hand tremors Dry mouth Increased thirst Increased urination Thinning of hair or hair loss Acne-like rash Rare/Serious side effects Signs of lithium toxicity include severe nausea and vomiting, severe hand tremors, confusion, vision changes, and unsteadiness while standing or walking. These symptoms need to be addressed immediately with a medical doctor to ensure your lithium level is not dangerously high. In rare cases, lithium may lead to a reversible condition known as diabetes insipidus. If this occurs you would notice a significant increase in thirst and how much fluid you drink and how much you urinate. Talk to your doctor if you notice you are urinating more frequently than usual. Are There Any Risks For Taking [place] For Long Periods Of Time? Hypothyroidism (low levels of thyroid hormone) may occur with long-term lithium use. Rare kidney problems have been associated with long-term use of lithium. The risk increases with high levels of lithium. Your doctor will monitor your kidney function at routine check-ups to ensure this does not occur. Summary of Black Box Warnings [place] Toxicity [place] toxicity is closely related to lithium blood levels and can occur at doses close to therapeutic levels; lithium levels should be monitored closely when starting the medication or if individuals experience side effects of the medication. discuss and educated on all rx Patient educated on all medications including potential benefits, side effects, risks. Educated on proper dosing schedule and importance of compliance educated on all medications, benefits, side effects and risk, and educated on depression, anxiety, and ADHD, mood d/o and educated on compliance of medications, metabolic and movement d/o education appointment's, continue therapy discussion with patient about course of treatment and patient instructions. education on serotonin syndrome Discussed and educated pt regarding benzodiazepines are generally not intended for prolonged use and that use can cause tolerance, dependence, depression, and associated memory issues including dementias (this list is not exhaustive). Benzodiazepine use is generally not recommended concurrently with pain medications and/or other controlled substances educated on all medications, benefits, side effects and risk, and educated on depression, anxiety, and ADHD, mood d/o and educated on compliance of medications, metabolic and movement d/o education appointment is, continue therapy discussion with patient about course of treatment and patient instructions. education on serotonin syndrome SSRI/SNRI side effects discussed including but not limited to, gastric upset, nausea, vomiting, diarrhea and/or constipation, weight changes, sexual side effects including loss of libido, increased suicidal thoughts/behavio rs in children and young adults, and serotonin syndrome. Second generation antipsychotics (SGAs) have metabolic syndrome issues with weight gain, increase in prolactin, increased waist circumference, increased lipids, and increased glucose. Thus routine monitoring of weight, metabolic labs, etc. is indicated. A general rank ordering of antipsychotics that have the greatest to the least risk of metabolic effects is olanzapine, quetiapine, risperidone, ziprasidone, and aripiprazole. However, weight gain can occur with all of these drugs and considerable variability exists among patients receiving the same drug regarding the risk of metabolic effects. Anti-psychotic agents not only increase the risk of metabolic disorder, they also increase the risk of CVA, akathisia, and movement disorders including EPS or tardive dyskinesia (more common with first generation antipsychotics) and more. websites http_s://www.[facility].nih.gov/health /topics/mental-h ealth-medication s http_s://www.nam i.org/About-Ment al-Illness/Treat ments/Mental-Hea lth-Medications http_s://www.nam i.org/About-Ment al-Illness/Menta d-Wpktjn-Ydtnjue ons http_s://[employer]/deprvika myrna/the-cogniti lx-hetvznfq-pc-d epression#treatm ents http__s://www.ni .nih.gov/healt h/topics/mental- health-medicatio ns http__s://www.na mi.org/About-Men prachi-Illness/Tamika tments/Mental-He alth-Medications http_s://estrellita.ni h.gov/publicatio ns/drugfacts/can nabis-marijuana http_s://www.[employer]/can tnmrp-ooq-podwyx nk-avuxnitcq-meq d/ Medication Management and Follow-Up - Plan: - Schedule follow-up appointments every 1-3 months to monitor the patient's response to the medication regimen. - Reinforce the importance of avoiding recreational drug use due to potential neurotoxicity and interactions with prescribed medications. 06/22/2025 Dietary counseling and surveillance (ICD-10 - Z71.3) 1.Depression Cymbalta 60 mg daily in am - helping last month on rx PCP prescribe rx discuss therapy options- pateint will wait at this time 2. Anxiety Cymbalta 60 mg daily in am 3.Poor Sleep hygeine Sleep Hygeine- - KEEP YOUR BEDROOM DARK - GET LOTS OF NATURAL LIGHT IN THE MORNING. - DON'T WORK ON YOUR COMPUTER OR PHONE LATE AT NIGHT. - AVOID NAPS DURING THE DAY. - NO CAFFEINE 3 HOURS OR MORE AFTER WAKE UP TIME. - ONLY USE YOUR BED FOR SLEEPING - GET A RELAXATION ROUTINE BEFORE BED. - IF YOU CAN'T GET TO SLEEP AFTER 15 TO 30 MINUTES GET OUT OF BED AND DO SOMETHING RELAXING. - DON'T DRINK ALCOHOL IN THE EVENING or limit alcohol to 1 drink. 4. Tobacco use Smoking Education Do not smoke. Nicotine and other chemicals in cigarettes and cigars can cause lung damage. Ask your healthcare provider for information if you currently smoke and need help to quit. E-cigarettes or smokeless tobacco still contain nicotine. Talk to your healthcare provider before you use these products. education on decrease to stopping nicotine products and stop smoking hotline given -Quit - Yes [place] Tobacco Quitline Call a Smoking Quitline The [employer] [place] Smoking Quitline, (0-304-10M-QUIT) Smokefree.gov, which connects you with your State's Quitline, (3-815-JUGZDVA) Veterans Smoking Quitline, (2-875-KQANUMS) 5. Cannabis use Cannabis Use Education Recommend decrease/stop cannabis use as it can negatively impact mood, motivation, anxiety, sleep, focus/concentrat ion/memory (vigilance, elasticity, processing and attention); can also contribute to development of psychosis. Recommend decrease/stop cannabis use as it may be negatively impacting mood, motivation, anxiety, sleep, focus; can also contribute to development of psychosis Cannabis/marijua na information: http_s://estrellita.ni h.gov/publicatio ns/drugfacts/can nabis-marijuana http_s://www.[employer]/can kjekd-xuo-xlqtur yg-auybsedir-kdx d/ 6/ elevated blood pressure B/P EDUCATION educated on healthy b/p 120/80 monitor b/p at home refer to PCP, heart healthy diet and excise limit salt intake limit soda intake and caffiene increase water 7. 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 Educated on proper dosing schedule and importance of compliance educated on all medications, benefits, side effects and risk, and educated on depression, anxiety, and ADHD, mood d/o and educated on compliance of medications, metabolic and movement d/o education appointment's, continue therapy discussion with patient about course of treatment and patient instructions. education on serotonin syndrome Discussed and educated pt regarding benzodiazepines are generally not intended for prolonged use and that use can cause tolerance, dependence, depression, and associated memory issues including dementias (this list is not exhaustive). Benzodiazepine use is generally not recommended concurrently with pain medications and/or other controlled substances educated on all medications, benefits, side effects and risk, and educated on depression, anxiety, and ADHD, mood d/o and educated on compliance of medications, metabolic and movement d/o education appointment is, continue therapy discussion with patient about course of treatment and patient instructions. education on serotonin syndrome SSRI/SNRI side effects discussed including but not limited to, gastric upset, nausea, vomiting, diarrhea and/or constipation, weight changes, sexual side effects including loss of libido, increased suicidal thoughts/behavio rs in children and young adults, and serotonin syndrome. Second generation antipsychotics (SGAs) have metabolic syndrome issues with weight gain, increase in prolactin, increased waist circumference, increased lipids, and increased glucose. Thus routine monitoring of weight, metabolic labs, etc. is indicated. A general rank ordering of antipsychotics that have the greatest to the least risk of metabolic effects is olanzapine, quetiapine, risperidone, ziprasidone, and aripiprazole. However, weight gain can occur with all of these drugs and considerable variability exists among patients receiving the same drug regarding the risk of metabolic effects. Anti-psychotic agents not only increase the risk of metabolic disorder, they also increase the risk of CVA, akathisia, and movement disorders including EPS or tardive dyskinesia (more common with first generation antipsychotics) and more. websites http_s://www.[facility].nih.gov/health /topics/mental-h ealth-medication s http_s://www.nam i.org/About-Ment al-Illness/Treat ments/Mental-Hea lth-Medications http_s://www.nam i.org/About-Ment al-Illness/Menta b-Rxxamj-Pduapku ons http_s://psychce Arav.com/deprvika norris/the-cogniti fv-xwjgivge-gy-d epression#treatm ents http__s://www.[facility].nih.gov/healt h/topics/mental- health-medicatio ns http__s://www.na mi.org/About-Men prachi-Illness/Tamika millernts/Mental-He alth-Medications http_s://estrellita.ni h.gov/publicatio ns/drugfacts/can nabis-marijuana http_s://www.[employer]/can yozsb-uve-lrqdwh dm-ivfobhksg-qgm d/ Medication Management and Follow-Up - Plan: - Schedule follow-up appointments every 1-3 months to monitor the patient's response to the medication regimen. - Reinforce the importance of avoiding recreational drug use due to potential neurotoxicity and interactions with prescribed medications. 05/25/2025 Marijuana use (ICD-10 - F12.90) 1.Depression Cymbalta 60 mg daily in am - helping last month on rx PCP prescribe rx discuss therapy options- pateint will wait at this time 2. Anxiety Cymbalta 60 mg daily in am 3.Poor Sleep hygeine Sleep Hygeine- - KEEP YOUR BEDROOM DARK - GET LOTS OF NATURAL LIGHT IN THE MORNING. - DON'T WORK ON YOUR COMPUTER OR PHONE LATE AT NIGHT. - AVOID NAPS DURING THE DAY. - NO CAFFEINE 3 HOURS OR MORE AFTER WAKE UP TIME. - ONLY USE YOUR BED FOR SLEEPING - GET A RELAXATION ROUTINE BEFORE BED. - IF YOU CAN'T GET TO SLEEP AFTER 15 TO 30 MINUTES GET OUT OF BED AND DO SOMETHING RELAXING. - DON'T DRINK ALCOHOL IN THE EVENING or limit alcohol to 1 drink. 4. Tobacco use Smoking Education Do not smoke. Nicotine and other chemicals in cigarettes and cigars can cause lung damage. Ask your healthcare provider for information if you currently smoke and need help to quit. E-cigarettes or smokeless tobacco still contain nicotine. Talk to your healthcare provider before you use these products. education on decrease to stopping nicotine products and stop smoking hotline given Quit - Yes [place] Tobacco Quitline Call a Smoking Quitline The [employer] [place]'s Smoking Quitline, (0-381-18U-QUIT) Smokefree.gov, which connects you with your State's Quitline, (8-164-PODEELT) Veterans Smoking Quitline, (1-094-TAIJWUM) 5. Cannabis use Cannabis Use Education Recommend decrease/stop cannabis use as it can negatively impact mood, motivation, anxiety, sleep, focus/concentrat ion/memory (vigilance, elasticity, processing and attention); can also contribute to development of psychosis. Recommend decrease/stop cannabis use as it may be negatively impacting mood, motivation, anxiety, sleep, focus; can also contribute to development of psychosis Cannabis/marijua na information: http_s://estrellita.ni h.gov/publicatio ns/drugfacts/can nabis-marijuana http_s://www.[employer]/can uzzlr-kwq-aprvjx fn-mooqfmlog-psp d/ 6/ elevated blood pressure B/P EDUCATION educated on healthy b/p 120/80 monitor b/p at home refer to PCP, heart healthy diet and excise limit salt intake limit soda intake and caffiene increase water 7. ADD Schedule Creyos testing educated on cardiovascular health and HTN discuss non-stimualtes no control subtance prescribed by RADHA r/t cannabis use and HTN Patient educated on all medications including potential benefits, side effects, risks. Educated on proper dosing schedule and importance of compliance educated on all medications, benefits, side effects and risk, and educated on depression, anxiety, and ADHD, mood d/o and educated on compliance of medications, metabolic and movement d/o education appointment's, continue therapy discussion with patient about course of treatment and patient instructions. education on serotonin syndrome Discussed and educated pt regarding benzodiazepines are generally not intended for prolonged use and that use can cause tolerance, dependence, depression, and associated memory issues including dementias (this list is not exhaustive). Benzodiazepine use is generally not recommended concurrently with pain medications and/or other controlled substances educated on all medications, benefits, side effects and risk, and educated on depression, anxiety, and ADHD, mood d/o and educated on compliance of medications, metabolic and movement d/o education appointment is, continue therapy discussion with patient about course of treatment and patient instructions. education on serotonin syndrome SSRI/SNRI side effects discussed including but not limited to, gastric upset, nausea, vomiting, diarrhea and/or constipation, weight changes, sexual side effects including loss of libido, increased suicidal thoughts/behavio rs in children and young adults, and serotonin syndrome. Second generation antipsychotics (SGAs) have metabolic syndrome issues with weight gain, increase in prolactin, increased waist circumference, increased lipids, and increased glucose. Thus routine monitoring of weight, metabolic labs, etc. is indicated. A general rank ordering of antipsychotics that have the greatest to the least risk of metabolic effects is olanzapine, quetiapine, risperidone, ziprasidone, and aripiprazole. However, weight gain can occur with all of these drugs and considerable variability exists among patients receiving the same drug regarding the risk of metabolic effects. Anti-psychotic agents not only increase the risk of metabolic disorder, they also increase the risk of CVA, akathisia, and movement disorders including EPS or tardive dyskinesia (more common with first generation antipsychotics) and more. websites http_s://www.[facility].nih.gov/health /topics/mental-h ealth-medication s http_s://www.nam i.[employer]/About-Ment al-Illness/Treat ments/Mental-Hea lth-Medications http_s://www.nam i.org/About-Ment al-Illness/Menta x-Utfkto-Zsuhoyd ons http_s://[employer]/deprvika myrna/the-cogniti px-yzftpifp-ot-d epression#treatm ents http__s://www.[facility].nih.gov/healt h/topics/mental- health-medicatio ns http__s://www.na mi.org/About-Men prachi-Illness/Tamika tments/Mental-He alth-Medications http_s://estrellita. h.gov/publicatio ns/drugfacts/can nabis-marijuana http_s://www.[employer]/can nppuf-gzm-marxfi hg-cbtipfzlh-lom d/ Medication Management and Follow-Up - Plan: - Schedule follow-up appointments every 1-3 months to monitor the patient's response to the medication regimen. - Reinforce the importance of avoiding recreational drug use due to potential neurotoxicity and interactions with prescribed medications. 05/25/2025 Encounter for screening for cardiovascular disorders (ICD-10 - Z13.6) 1.Depression Cymbalta 60 mg daily in am - helping last month on rx PCP prescribe rx discuss therapy options- pateint will wait at this time 2. Anxiety Cymbalta 60 mg daily in am 3.Poor Sleep hygeine Sleep Hygeine- - KEEP YOUR BEDROOM DARK - GET LOTS OF NATURAL LIGHT IN THE MORNING. - DON'T WORK ON YOUR COMPUTER OR PHONE LATE AT NIGHT. - AVOID NAPS DURING THE DAY. - NO CAFFEINE 3 HOURS OR MORE AFTER WAKE UP TIME. - ONLY USE YOUR BED FOR SLEEPING - GET A RELAXATION ROUTINE BEFORE BED. - IF YOU CAN'T GET TO SLEEP AFTER 15 TO 30 MINUTES GET OUT OF BED AND DO SOMETHING RELAXING. - DON'T DRINK ALCOHOL IN THE EVENING or limit alcohol to 1 drink. 4. Tobacco use Smoking Education Do not smoke. Nicotine and other chemicals in cigarettes and cigars can cause lung damage. Ask your healthcare provider for information if you currently smoke and need help to quit. E-cigarettes or smokeless tobacco still contain nicotine. Talk to your healthcare provider before you use these products. education on decrease to stopping nicotine products and stop smoking hotline given Quit - Yes [place] Tobacco Quitline Call a Smoking Quitline The [employer] [place] Smoking Quitline, (0-225-41N-QUIT) Smokefree.gov, which connects you with your [facility]'s Quitline, (6-961-RJRFYSK) Veterans Smoking Quitline, (2-886-HCAVEFA) 5. Cannabis use Cannabis Use Education Recommend decrease/stop cannabis use as it can negatively impact mood, motivation, anxiety, sleep, focus/concentrat ion/memory (vigilance, elasticity, processing and attention); can also contribute to development of psychosis. Recommend decrease/stop cannabis use as it may be negatively impacting mood, motivation, anxiety, sleep, focus; can also contribute to development of psychosis Cannabis/marijua na information: http_s://estrellita.ni h.gov/publicatio ns/drugfacts/can nabis-marijuana http_s://www.[employer]/can qxxhx-rko-aepilp fr-aeilgnyyj-ync d/ 6/ elevated blood pressure B/P EDUCATION educated on healthy b/p 120/80 monitor b/p at home refer to PCP, heart healthy diet and excise limit salt intake limit soda intake and caffiene increase water 7. ADD Schedule Creyos testing educated on cardiovascular health and HTN discuss non-stimualtes no control subtance prescribed by RADHA r/t cannabis use and HTN Patient educated on all medications including potential benefits, side effects, risks. Educated on proper dosing schedule and importance of compliance educated on all medications, benefits, side effects and risk, and educated on depression, anxiety, and ADHD, mood d/o and educated on compliance of medications, metabolic and movement d/o education appointment's, continue therapy discussion with patient about course of treatment and patient instructions. education on serotonin syndrome Discussed and educated pt regarding benzodiazepines are generally not intended for prolonged use and that use can cause tolerance, dependence, depression, and associated memory issues including dementias (this list is not exhaustive). Benzodiazepine use is generally not recommended concurrently with pain medications and/or other controlled substances educated on all medications, benefits, side effects and risk, and educated on depression, anxiety, and ADHD, mood d/o and educated on compliance of medications, metabolic and movement d/o education appointment is, continue therapy discussion with patient about course of treatment and patient instructions. education on serotonin syndrome SSRI/SNRI side effects discussed including but not limited to, gastric upset, nausea, vomiting, diarrhea and/or constipation, weight changes, sexual side effects including loss of libido, increased suicidal thoughts/behavio rs in children and young adults, and serotonin syndrome. Second generation antipsychotics (SGAs) have metabolic syndrome issues with weight gain, increase in prolactin, increased waist circumference, increased lipids, and increased glucose. Thus routine monitoring of weight, metabolic labs, etc. is indicated. A general rank ordering of antipsychotics that have the greatest to the least risk of metabolic effects is olanzapine, quetiapine, risperidone, ziprasidone, and aripiprazole. However, weight gain can occur with all of these drugs and considerable variability exists among patients receiving the same drug regarding the risk of metabolic effects. Anti-psychotic agents not only increase the risk of metabolic disorder, they also increase the risk of CVA, akathisia, and movement disorders including EPS or tardive dyskinesia (more common with first generation antipsychotics) and more. websites http_s://www.nim h.nih.gov/health /topics/mental-h ealth-medication s http_s://www.nam i.org/About-Ment al-Illness/Treat ments/Mental-Hea lth-Medications http_s://www.nam i.org/About-Ment al-Illness/Menta h-Kjhblq-Naiaenr ons http_s://psychce Arav.com/[place]ris/the-cogniti yx-jkuddvyv-ly-d epression#treatm ents http__s://www.ni .nih.gov/healt h/topics/mental- health-medicatio ns http__s://www.na mi.org/About-Men prachi-Illness/Tamika tments/Mental-He alth-Medications http_s://estrellita.ni h.gov/publicatio ns/drugfacts/can nabis-marijuana http_s://www.[employer]/can davge-efp-hdmuca dk-mvuqakgia-suo d/ Medication Management and Follow-Up - Plan: - Schedule follow-up appointments every 1-3 months to monitor the patient's response to the medication regimen. - Reinforce the importance of avoiding recreational drug use due to potential neurotoxicity and interactions with prescribed medications. 06/22/2025 MDD (major depressive disorder), recurrent episode, moderate (ICD-10 - F33.1) 1.Depression Cymbalta 60 mg daily in am - helping last month on rx PCP prescribe rx discuss therapy options- pateint will wait at this time 2. Anxiety Cymbalta 60 mg daily in am 3.Poor Sleep hygeine Sleep Hygeine- - KEEP YOUR BEDROOM DARK - GET LOTS OF NATURAL LIGHT IN THE MORNING. - DON'T WORK ON YOUR COMPUTER OR PHONE LATE AT NIGHT. - AVOID NAPS DURING THE DAY. - NO CAFFEINE 3 HOURS OR MORE AFTER WAKE UP TIME. - ONLY USE YOUR BED FOR SLEEPING - GET A RELAXATION ROUTINE BEFORE BED. - IF YOU CAN'T GET TO SLEEP AFTER 15 TO 30 MINUTES GET OUT OF BED AND DO SOMETHING RELAXING. - DON'T DRINK ALCOHOL IN THE EVENING or limit alcohol to 1 drink. 4. Tobacco use Smoking Education Do not smoke. Nicotine and other chemicals in cigarettes and cigars can cause lung damage. Ask your healthcare provider for information if you currently smoke and need help to quit. E-cigarettes or smokeless tobacco still contain nicotine. Talk to your healthcare provider before you use these products. education on decrease to stopping nicotine products and stop smoking hotline given -Quit - Yes [place] Tobacco Quitline Call a Smoking Quitline The [employer] [place] Smoking Quitline, (6-811-44F-QUIT) Smokefree.gov, which connects you with your State's Quitline, (9-743-WNUOQNM) Veterans Smoking Quitline, (0-523-ZGGOSOX) 5. Cannabis use Cannabis Use Education Recommend decrease/stop cannabis use as it can negatively impact mood, motivation, anxiety, sleep, focus/concentrat ion/memory (vigilance, elasticity, processing and attention); can also contribute to development of psychosis. Recommend decrease/stop cannabis use as it may be negatively impacting mood, motivation, anxiety, sleep, focus; can also contribute to development of psychosis Cannabis/marijua na information: http_s://estrellita.ni h.gov/publicatio ns/drugfacts/can nabis-marijuana http_s://www.[employer]/can qoeqa-twd-jisptv tz-traclpriq-hyy d/ 6/ elevated blood pressure B/P EDUCATION educated on healthy b/p 120/80 monitor b/p at home refer to PCP, heart healthy diet and excise limit salt intake limit soda intake and caffiene increase water 7. 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 Educated on proper dosing schedule and importance of compliance educated on all medications, benefits, side effects and risk, and educated on depression, anxiety, and ADHD, mood d/o and educated on compliance of medications, metabolic and movement d/o education appointment's, continue therapy discussion with patient about course of treatment and patient instructions. education on serotonin syndrome Discussed and educated pt regarding benzodiazepines are generally not intended for prolonged use and that use can cause tolerance, dependence, depression, and associated memory issues including dementias (this list is not exhaustive). Benzodiazepine use is generally not recommended concurrently with pain medications and/or other controlled substances educated on all medications, benefits, side effects and risk, and educated on depression, anxiety, and ADHD, mood d/o and educated on compliance of medications, metabolic and movement d/o education appointment is, continue therapy discussion with patient about course of treatment and patient instructions. education on serotonin syndrome SSRI/SNRI side effects discussed including but not limited to, gastric upset, nausea, vomiting, diarrhea and/or constipation, weight changes, sexual side effects including loss of libido, increased suicidal thoughts/behavio rs in children and young adults, and serotonin syndrome. Second generation antipsychotics (SGAs) have metabolic syndrome issues with weight gain, increase in prolactin, increased waist circumference, increased lipids, and increased glucose. Thus routine monitoring of weight, metabolic labs, etc. is indicated. A general rank ordering of antipsychotics that have the greatest to the least risk of metabolic effects is olanzapine, quetiapine, risperidone, ziprasidone, and aripiprazole. However, weight gain can occur with all of these drugs and considerable variability exists among patients receiving the same drug regarding the risk of metabolic effects. Anti-psychotic agents not only increase the risk of metabolic disorder, they also increase the risk of CVA, akathisia, and movement disorders including EPS or tardive dyskinesia (more common with first generation antipsychotics) and more. websites http_s://www.nim h.nih.gov/health /topics/mental-h ealth-medication s http_s://www.nam i.org/About-Ment al-Illness/Treat ments/Mental-Hea lth-Medications http_s://www.nam i.org/About-Ment al-Illness/Menta k-Smyclf-Tloktzd ons http_s://psychce Tk20al.com/depres myrna/the-cogniti kd-xtsjscee-jf-d epression#treatm ents http__s://www.ni .nih.gov/healt h/topics/mental- health-medicatio ns http__s://www.na ct.org/About-Men prachi-Illness/Tamika tments/Mental-He alth-Medications http_s://estrellita.ni h.gov/publicatio ns/drugfacts/can nabis-marijuana http_s://www.[employer]/can ogazh-lno-sapptg sl-wiwhcxasa-wyf d/ Medication Management and Follow-Up - Plan: - Schedule follow-up appointments every 1-3 months to monitor the patient's response to the medication regimen. - Reinforce the importance of avoiding recreational drug use due to potential neurotoxicity and interactions with prescribed medications. 07/20/2025 ADEOLA (generalized anxiety disorder) (ICD-10 - F41.1) Learning About Generalized Anxiety Disorder material was published, Generalized Anxiety Disorder: Care Instructions material was published, Life After Combat: Coping with an Anxiety Disorder material was published, Learning About Anxiety Disorders material was published, Managing a Health Condition and Your Anxiety About It material was published 1.Depression Cymbalta 60 mg daily in am - helping last month on rx Start [id number] at bedtime for depression and suicide prevention PCP prescribe rx discuss therapy options- pateint will wait at this time 2. Anxiety Cymbalta 60 mg daily in am 3.Poor Sleep hygeine Sleep Hygeine- - KEEP YOUR BEDROOM DARK - GET LOTS OF NATURAL LIGHT IN THE MORNING. - DON'T WORK ON YOUR COMPUTER OR PHONE LATE AT NIGHT. - AVOID NAPS DURING THE DAY. - NO CAFFEINE 3 HOURS OR MORE AFTER WAKE UP TIME. - ONLY USE YOUR BED FOR SLEEPING - GET A RELAXATION ROUTINE BEFORE BED. - IF YOU CAN'T GET TO SLEEP AFTER 15 TO 30 MINUTES GET OUT OF BED AND DO SOMETHING RELAXING. - DON'T DRINK ALCOHOL IN THE EVENING or limit alcohol to 1 drink. 4. Tobacco use Smoking Education Do not smoke. Nicotine and other chemicals in cigarettes and cigars can cause lung damage. Ask your healthcare provider for information if you currently smoke and need help to quit. E-cigarettes or smokeless tobacco still contain nicotine. Talk to your healthcare provider before you use these products. education on decrease to stopping nicotine products and stop smoking hotline given Quit - Yes [place] Tobacco Quitline Call a Smoking Quitline The National [employer] [place]'s Smoking Quitline, (9-543-35Q-QUIT) Smokefree.gov, which connects you with your State's Quitline, (0-160-APNRUCL) Veterans Smoking Quitline, (1-004-WIPBUZJ) 5. Cannabis use- discuss decrease use to stopping Cannabis Use Education Recommend decrease/stop cannabis use as it can negatively impact mood, motivation, anxiety, sleep, focus/concentrat ion/memory (vigilance, elasticity, processing and attention); can also contribute to development of psychosis. Recommend decrease/stop cannabis use as it may be negatively impacting mood, motivation, anxiety, sleep, focus; can also contribute to development of psychosis Cannabis/marijua na information: http_s://estrellita.ni h.gov/publicatio ns/drugfacts/can nabis-marijuana http_s://www.[employer]/can zpmfm-anj-jpkebt qg-xqxjwkigw-jqf d/ 6/ elevated blood pressure B/P EDUCATION-instru cted to call PCP or urgent care due to elevated blood pressure- patient will see a provider today discuss cardiovascular risk with elevated B/P ON RX educated on healthy b/p 120/80 monitor b/p at home refer to PCP, heart healthy diet and excise limit salt intake limit soda intake and caffiene increase water 7. 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 Suicidal thoughts denies S/HI no plans or intent passive thoughts for years no active thoughts educated on 988/1 safety plan support system go to nearest ER with SI/HI plans or intent increase passive thoughts, active thoughts discuss and educated on [place] 150 mg at bedtime for depression and suicide prevention [place] education [place] use reviewed. Risks include risks of toxicity, arrhythmias, cognitive impairment, changes in muscle coordination, weight gain, thyroid and parathyroid changes, polydipsia and polyuria, alopecia, tremor and teratogenicity ( defects). Recommend avoid in females (use contraception consistently). Routine lab monitoring may be required. Patient consented to treatment. Indications: acute ronald (euphoric ronald), bipolar prophylaxis, bipolar depression treatment or augmentation, unipolar depression as augmentation with antidepressants Average dose = I,500 mg/day, target serum level 0.8 [place] is known to reduce risk of suicide. Mechanism of action: inhibits inositol monophosphatase, interfering with 2nd messengers Nuisance Side Effects: sedation, cognitive difficulties, decreased creativity, dry mouth, tremor, increased appetite, weight gain, polydipsia, polyuria, nausea, diarrhea, acne, alopecia Serious Side Effects: Thyroid: hypothyroidism (5%), goiter (3%) Cardiac: decrease in cardiac conduction leading to sick sinus syndrome, blocks SA node Teratogenicity: Ebstein's anomaly 2 in 1,000 Renal: chronic renal insufficiency (after 10-20 years), acute renal failure, polyuria occurs in 50-70% [lithium antagonizes anti-diuretic hormone (ADH)], diabetes insipidus in 10% (treat with amiloride) Drug-drug interactions: increase in lithium: NSAIDs, THELMA inhibitors, angiotensin II antagonists If you are planning on becoming , notify your health care provider so that he/she can best manage your medications. People living with bipolar disorder who wish to become face important decisions. It is important to discuss the risks and benefits of treatment with your doctor and caregivers. [place] has been associated with an increased risk of Ebstein's anomaly, a heart valve defect. Even though data suggest that the risk of Ebstein's anomaly from first trimester use of lithium is very low, an ultrasound of the heart is recommended at 16 to 20 weeks of gestation. [place] levels should be monitored monthly in early and weekly near delivery. Do not stop taking lithium without first speaking to your health care provider. Discontinuing mood stabilizer medications during has been associated with a significant increase in symptom relapse. If an overdose occurs call your doctor or 911. You may need urgent medical care. You may also contact the poison control center at . A specific treatment to reverse the effects of lithium does not exist, but there are treatments to decrease the effects of the medication. Only a doctor can determine if you require treatment. Avoid drinking alcohol or using illegal drugs while you are taking lithium. They may decrease the benefits (e.g., worsen your condition) and increase adverse effects (e.g., sedation) of the medication. Avoid low sodium diets and dehydration because this can increase the risk of lithium toxicity. Avoid over the counter and prescription pain medications that contain nonsteroidal anti-inflammator y medications (NSAIDS) such as ibuprofen (Motrin, Advil) or naproxen (Aleve, Naprosyn) because these medications can increase the risk of toxicity from lithium. Avoid excessive intake of caffeinated beverages, such as coffee, tea, cola or energy drinks, since these may decrease levels of lithium and decrease effectiveness of the medication. Discontinuing caffeine use may increase lithium levels. Consult your health care provider before reducing or stopping caffeine use. What are the possible side effects of lithium? Common side effects Headache Nausea or vomiting Diarrhea Dizziness or drowsiness Changes in appetite Hand tremors Dry mouth Increased thirst Increased urination Thinning of hair or hair loss Acne-like rash Rare/Serious side effects Signs of lithium toxicity include severe nausea and vomiting, severe hand tremors, confusion, vision changes, and unsteadiness while standing or walking. These symptoms need to be addressed immediately with a medical doctor to ensure your lithium level is not dangerously high. In rare cases, lithium may lead to a reversible condition known as diabetes insipidus. If this occurs you would notice a significant increase in thirst and how much fluid you drink and how much you urinate. Talk to your doctor if you notice you are urinating more frequently than usual. Are There Any Risks For Taking [place] For Long Periods Of Time? Hypothyroidism (low levels of thyroid hormone) may occur with long-term lithium use. Rare kidney problems have been associated with long-term use of lithium. The risk increases with high levels of lithium. Your doctor will monitor your kidney function at routine check-ups to ensure this does not occur. Summary of Black Box Warnings [place] Toxicity [place] toxicity is closely related to lithium blood levels and can occur at doses close to therapeutic levels; lithium levels should be monitored closely when starting the medication or if individuals experience side effects of the medication. discuss and educated on all rx Patient educated on all medications including potential benefits, side effects, risks. Educated on proper dosing schedule and importance of compliance educated on all medications, benefits, side effects and risk, and educated on depression, anxiety, and ADHD, mood d/o and educated on compliance of medications, metabolic and movement d/o education appointment's, continue therapy discussion with patient about course of treatment and patient instructions. education on serotonin syndrome Discussed and educated pt regarding benzodiazepines are generally not intended for prolonged use and that use can cause tolerance, dependence, depression, and associated memory issues including dementias (this list is not exhaustive). Benzodiazepine use is generally not recommended concurrently with pain medications and/or other controlled substances educated on all medications, benefits, side effects and risk, and educated on depression, anxiety, and ADHD, mood d/o and educated on compliance of medications, metabolic and movement d/o education appointment is, continue therapy discussion with patient about course of treatment and patient instructions. education on serotonin syndrome SSRI/SNRI side effects discussed including but not limited to, gastric upset, nausea, vomiting, diarrhea and/or constipation, weight changes, sexual side effects including loss of libido, increased suicidal thoughts/behavio rs in children and young adults, and serotonin syndrome. Second generation antipsychotics (SGAs) have metabolic syndrome issues with weight gain, increase in prolactin, increased waist circumference, increased lipids, and increased glucose. Thus routine monitoring of weight, metabolic labs, etc. is indicated. A general rank ordering of antipsychotics that have the greatest to the least risk of metabolic effects is olanzapine, quetiapine, risperidone, ziprasidone, and aripiprazole. However, weight gain can occur with all of these drugs and considerable variability exists among patients receiving the same drug regarding the risk of metabolic effects. Anti-psychotic agents not only increase the risk of metabolic disorder, they also increase the risk of CVA, akathisia, and movement disorders including EPS or tardive dyskinesia (more common with first generation antipsychotics) and more. websites http_s://www.nim h.nih.gov/health /topics/mental-h ealth-medication s http_s://www.nam i.org/About-Ment al-Illness/Treat ments/Mental-Hea lth-Medications http_s://www.nam i.org/About-Ment al-Illness/Menta n-Fydpxo-Ozevgpy ons http_s://psychce Arav.com/depres myrna/the-cogniti ql-pgyfadpa-cu-d epression#treatm ents http__s://www.ni .nih.gov/healt h/topics/mental- health-medicatio ns http__s://www.na mi.org/About-Men prachi-Illness/Tamika tments/Mental-He alth-Medications http_s://estrellita.ni h.gov/publicatio ns/drugfacts/can nabis-marijuana http_s://www.[employer]/can rkxub-fgd-kffvfc mu-tmithbwij-sap d/ Medication Management and Follow-Up - Plan: - Schedule follow-up appointments every 1-3 months to monitor the patient's response to the medication regimen. - Reinforce the importance of avoiding recreational drug use due to potential neurotoxicity and interactions with prescribed medications. 08/09/2025 ADEOLA (generalized anxiety disorder) (ICD-10 - F41.1) Learning About Generalized Anxiety Disorder material was published, Generalized Anxiety Disorder: Care Instructions material was published, Life After Combat: Coping with an Anxiety Disorder material was published, Learning About Anxiety Disorders material was published, Managing a Health Condition and Your Anxiety About It material was published 1.Depression Cymbalta 60 mg daily in am - helping on rx - PCP fills [id number] at bedtime for depression and suicide prevention - helping discuss therapy options- pateint will wait at this time 2. Anxiety Cymbalta 60 mg daily in am- PCP fills 3.Poor Sleep hygeine Sleep Hygeine- - KEEP YOUR BEDROOM DARK - GET LOTS OF NATURAL LIGHT IN THE MORNING. - DON'T WORK ON YOUR COMPUTER OR PHONE LATE AT NIGHT. - AVOID NAPS DURING THE DAY. - NO CAFFEINE 3 HOURS OR MORE AFTER WAKE UP TIME. - ONLY USE YOUR BED FOR SLEEPING - GET A RELAXATION ROUTINE BEFORE BED. - IF YOU CAN'T GET TO SLEEP AFTER 15 TO 30 MINUTES GET OUT OF BED AND DO SOMETHING RELAXING. - DON'T DRINK ALCOHOL IN THE EVENING or limit alcohol to 1 drink. 4. Tobacco use Smoking Education Do not smoke. Nicotine and other chemicals in cigarettes and cigars can cause lung damage. Ask your healthcare provider for information if you currently smoke and need help to quit. E-cigarettes or smokeless tobacco still contain nicotine. Talk to your healthcare provider before you use these products. education on decrease to stopping nicotine products and stop smoking hotline given Quit - Yes [place] Tobacco Quitline Call a Smoking Quitline The National Cancer [place]'s Smoking Quitline, (8-971-50E-QUIT) Smokefree.gov, which connects you with your State's Quitline, (1-616-QTNEYUV) Veterans Smoking Quitline, (1-049-DLIRZIH) 5. Cannabis use- discuss decrease use to stopping Cannabis Use Education Recommend decrease/stop cannabis use as it can negatively impact mood, motivation, anxiety, sleep, focus/concentrat ion/memory (vigilance, elasticity, processing and attention); can also contribute to development of psychosis. Recommend decrease/stop cannabis use as it may be negatively impacting mood, motivation, anxiety, sleep, focus; can also contribute to development of psychosis Cannabis/marijua na information: http_s://estrellita.ni h.gov/publicatio ns/drugfacts/can nabis-marijuana http_s://www.[employer]/can heucd-egq-npggto zy-kxjhpdusr-goq d/ 6/ elevated blood pressure B/P EDUCATION-instru cted to call PCP or urgent care due to elevated blood pressure- patient will see a provider Wednesday on RX B/P discuss cardiovascular risk with elevated B/P ON RX educated on healthy b/p 120/80 monitor b/p at home refer to PCP, heart healthy diet and excise limit salt intake limit soda intake and caffiene increase water 7. 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 Suicidal thoughts denies S/HI no plans or intent passive thoughts for years no active thoughts educated on 618/911 safety plan support system go to nearest ER with SI/HI plans or intent increase passive thoughts, active thoughts discuss and educated on [place] 150 mg at bedtime for depression and suicide prevention [place] education [place] use reviewed. Risks include risks of toxicity, arrhythmias, cognitive impairment, changes in muscle coordination, weight gain, thyroid and parathyroid changes, polydipsia and polyuria, alopecia, tremor and teratogenicity ( defects). Recommend avoid in females (use contraception consistently). Routine lab monitoring may be required. Patient consented to treatment. Indications: acute ronald (euphoric ronald), bipolar prophylaxis, bipolar depression treatment or augmentation, unipolar depression as augmentation with antidepressants Average dose = I,500 mg/day, target serum level 0.8 [place] is known to reduce risk of suicide. Mechanism of action: inhibits inositol monophosphatase, interfering with 2nd messengers Nuisance Side Effects: sedation, cognitive difficulties, decreased creativity, dry mouth, tremor, increased appetite, weight gain, polydipsia, polyuria, nausea, diarrhea, acne, alopecia Serious Side Effects: Thyroid: hypothyroidism (5%), goiter (3%) Cardiac: decrease in cardiac conduction leading to sick sinus syndrome, blocks SA node Teratogenicity: Ebstein's anomaly 2 in 1,000 Renal: chronic renal insufficiency (after 10-20 years), acute renal failure, polyuria occurs in 50-70% [lithium antagonizes anti-diuretic hormone (ADH)], diabetes insipidus in 10% (treat with amiloride) Drug-drug interactions: increase in lithium: NSAIDs, THELMA inhibitors, angiotensin II antagonists If you are planning on becoming , notify your health care provider so that he/she can best manage your medications. People living with bipolar disorder who wish to become face important decisions. It is important to discuss the risks and benefits of treatment with your doctor and caregivers. [place] has been associated with an increased risk of Ebstein's anomaly, a heart valve defect. Even though data suggest that the risk of Ebstein's anomaly from first trimester use of lithium is very low, an ultrasound of the heart is recommended at 16 to 20 weeks of gestation. [place] levels should be monitored monthly in early and weekly near delivery. Do not stop taking lithium without first speaking to your health care provider. Discontinuing mood stabilizer medications during has been associated with a significant increase in symptom relapse. If an overdose occurs call your doctor or 911. You may need urgent medical care. You may also contact the poison control center at . A specific treatment to reverse the effects of lithium does not exist, but there are treatments to decrease the effects of the medication. Only a doctor can determine if you require treatment. Avoid drinking alcohol or using illegal drugs while you are taking lithium. They may decrease the benefits (e.g., worsen your condition) and increase adverse effects (e.g., sedation) of the medication. Avoid low sodium diets and dehydration because this can increase the risk of lithium toxicity. Avoid over the counter and prescription pain medications that contain nonsteroidal anti-inflammator y medications (NSAIDS) such as ibuprofen (Motrin, Advil) or naproxen (Aleve, Naprosyn) because these medications can increase the risk of toxicity from lithium. Avoid excessive intake of caffeinated beverages, such as coffee, tea, cola or energy drinks, since these may decrease levels of lithium and decrease effectiveness of the medication. Discontinuing caffeine use may increase lithium levels. Consult your health care provider before reducing or stopping caffeine use. What are the possible side effects of lithium? Common side effects Headache Nausea or vomiting Diarrhea Dizziness or drowsiness Changes in appetite Hand tremors Dry mouth Increased thirst Increased urination Thinning of hair or hair loss Acne-like rash Rare/Serious side effects Signs of lithium toxicity include severe nausea and vomiting, severe hand tremors, confusion, vision changes, and unsteadiness while standing or walking. These symptoms need to be addressed immediately with a medical doctor to ensure your lithium level is not dangerously high. In rare cases, lithium may lead to a reversible condition known as diabetes insipidus. If this occurs you would notice a significant increase in thirst and how much fluid you drink and how much you urinate. Talk to your doctor if you notice you are urinating more frequently than usual. Are There Any Risks For Taking [place] For Long Periods Of Time? Hypothyroidism (low levels of thyroid hormone) may occur with long-term lithium use. Rare kidney problems have been associated with long-term use of lithium. The risk increases with high levels of lithium. Your doctor will monitor your kidney function at routine check-ups to ensure this does not occur. Summary of Black Box Warnings [place] Toxicity [place] toxicity is closely related to lithium blood levels and can occur at doses close to therapeutic levels; lithium levels should be monitored closely when starting the medication or if individuals experience side effects of the medication. discuss and educated on all rx Patient educated on all medications including potential benefits, side effects, risks. Educated on proper dosing schedule and importance of compliance educated on all medications, benefits, side effects and risk, and educated on depression, anxiety, and ADHD, mood d/o and educated on compliance of medications, metabolic and movement d/o education appointment's, continue therapy discussion with patient about course of treatment and patient instructions. education on serotonin syndrome Discussed and educated pt regarding benzodiazepines are generally not intended for prolonged use and that use can cause tolerance, dependence, depression, and associated memory issues including dementias (this list is not exhaustive). Benzodiazepine use is generally not recommended concurrently with pain medications and/or other controlled substances educated on all medications, benefits, side effects and risk, and educated on depression, anxiety, and ADHD, mood d/o and educated on compliance of medications, metabolic and movement d/o education appointment is, continue therapy discussion with patient about course of treatment and patient instructions. education on serotonin syndrome SSRI/SNRI side effects discussed including but not limited to, gastric upset, nausea, vomiting, diarrhea and/or constipation, weight changes, sexual side effects including loss of libido, increased suicidal thoughts/behavio rs in children and young adults, and serotonin syndrome. Second generation antipsychotics (SGAs) have metabolic syndrome issues with weight gain, increase in prolactin, increased waist circumference, increased lipids, and increased glucose. Thus routine monitoring of weight, metabolic labs, etc. is indicated. A general rank ordering of antipsychotics that have the greatest to the least risk of metabolic effects is olanzapine, quetiapine, risperidone, ziprasidone, and aripiprazole. However, weight gain can occur with all of these drugs and considerable variability exists among patients receiving the same drug regarding the risk of metabolic effects. Anti-psychotic agents not only increase the risk of metabolic disorder, they also increase the risk of CVA, akathisia, and movement disorders including EPS or tardive dyskinesia (more common with first generation antipsychotics) and more. websites http_s://www.nim h.nih.gov/health /topics/mental-h ealth-medication s http_s://www.nam i.org/About-Ment al-Illness/Treat ments/Mental-Hea lth-Medications http_s://www.nam i.org/About-Ment al-Illness/Menta b-Wcgxxe-Hlgrgir ons http_s://psychce Tk20al.com/depres myrna/the-cogniti ur-klfwrcty-kr-d epression#treatm ents http__s://www.ni .nih.gov/healt h/topics/mental- health-medicatio ns http__s://www.na ct.org/About-Men prachi-Illness/Tamika tments/Mental-He alth-Medications http_s://estrellita.ni h.gov/publicatio ns/drugfacts/can nabis-marijuana http_s://www.[employer]/can ikxdl-uwv-wglcpu xo-hfqnbdkbv-dhq d/ Medication Management and Follow-Up - Plan: - Schedule follow-up appointments every 1-3 months to monitor the patient's response to the medication regimen. - Reinforce the importance of avoiding recreational drug use due to potential neurotoxicity and interactions with prescribed medications. 07/20/2025 Poor sleep hygiene (ICD-10 - Z72.821) 1.Depression Cymbalta 60 mg daily in am - helping last month on rx Start [id number] at bedtime for depression and suicide prevention PCP prescribe rx discuss therapy options- pateint will wait at this time 2. Anxiety Cymbalta 60 mg daily in am 3.Poor Sleep hygeine Sleep Hygeine- - KEEP YOUR BEDROOM DARK - GET LOTS OF NATURAL LIGHT IN THE MORNING. - DON'T WORK ON YOUR COMPUTER OR PHONE LATE AT NIGHT. - AVOID NAPS DURING THE DAY. - NO CAFFEINE 3 HOURS OR MORE AFTER WAKE UP TIME. - ONLY USE YOUR BED FOR SLEEPING - GET A RELAXATION ROUTINE BEFORE BED. - IF YOU CAN'T GET TO SLEEP AFTER 15 TO 30 MINUTES GET OUT OF BED AND DO SOMETHING RELAXING. - DON'T DRINK ALCOHOL IN THE EVENING or limit alcohol to 1 drink. 4. Tobacco use Smoking Education Do not smoke. Nicotine and other chemicals in cigarettes and cigars can cause lung damage. Ask your healthcare provider for information if you currently smoke and need help to quit. E-cigarettes or smokeless tobacco still contain nicotine. Talk to your healthcare provider before you use these products. education on decrease to stopping nicotine products and stop smoking hotline given Quit - Yes [place] Tobacco Quitline Call a Smoking Quitline The [employer] [place]'s Smoking Quitline, (6-471-84H-QUIT) Smokefree.gov, which connects you with your State's Quitline, (9-235-NAXFEQV) Veterans Smoking Quitline, (1-612-WWVELBK) 5. Cannabis use- discuss decrease use to stopping Cannabis Use Education Recommend decrease/stop cannabis use as it can negatively impact mood, motivation, anxiety, sleep, focus/concentrat ion/memory (vigilance, elasticity, processing and attention); can also contribute to development of psychosis. Recommend decrease/stop cannabis use as it may be negatively impacting mood, motivation, anxiety, sleep, focus; can also contribute to development of psychosis Cannabis/marijua na information: http_s://estrellita.ni h.gov/publicatio ns/drugfacts/can nabis-marijuana http_s://www.[employer]/can omnzg-yfq-tyfdsw it-fxfbufncl-bff d/ 6/ elevated blood pressure B/P EDUCATION-instru cted to call PCP or urgent care due to elevated blood pressure- patient will see a provider today discuss cardiovascular risk with elevated B/P ON RX educated on healthy b/p 120/80 monitor b/p at home refer to PCP, heart healthy diet and excise limit salt intake limit soda intake and caffiene increase water 7. 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 Suicidal thoughts denies S/HI no plans or intent passive thoughts for years no active thoughts educated on 988/911 safety plan support system go to nearest ER with SI/HI plans or intent increase passive thoughts, active thoughts discuss and educated on [place] 150 mg at bedtime for depression and suicide prevention [place] education [place] use reviewed. Risks include risks of toxicity, arrhythmias, cognitive impairment, changes in muscle coordination, weight gain, thyroid and parathyroid changes, polydipsia and polyuria, alopecia, tremor and teratogenicity ( defects). Recommend avoid in females (use contraception consistently). Routine lab monitoring may be required. Patient consented to treatment. Indications: acute ronald (euphoric ronald), bipolar prophylaxis, bipolar depression treatment or augmentation, unipolar depression as augmentation with antidepressants Average dose = I,500 mg/day, target serum level 0.8 [place] is known to reduce risk of suicide. Mechanism of action: inhibits inositol monophosphatase, interfering with 2nd messengers Nuisance Side Effects: sedation, cognitive difficulties, decreased creativity, dry mouth, tremor, increased appetite, weight gain, polydipsia, polyuria, nausea, diarrhea, acne, alopecia Serious Side Effects: Thyroid: hypothyroidism (5%), goiter (3%) Cardiac: decrease in cardiac conduction leading to sick sinus syndrome, blocks SA node Teratogenicity: Ebstein's anomaly 2 in 1,000 Renal: chronic renal insufficiency (after 10-20 years), acute renal failure, polyuria occurs in 50-70% [lithium antagonizes anti-diuretic hormone (ADH)], diabetes insipidus in 10% (treat with amiloride) Drug-drug interactions: increase in lithium: NSAIDs, THELMA inhibitors, angiotensin II antagonists If you are planning on becoming , notify your health care provider so that he/she can best manage your medications. People living with bipolar disorder who wish to become face important decisions. It is important to discuss the risks and benefits of treatment with your doctor and caregivers. [place] has been associated with an increased risk of Ebstein's anomaly, a heart valve defect. Even though data suggest that the risk of Ebstein's anomaly from first trimester use of lithium is very low, an ultrasound of the heart is recommended at 16 to 20 weeks of gestation. [place] levels should be monitored monthly in early and weekly near delivery. Do not stop taking lithium without first speaking to your health care provider. Discontinuing mood stabilizer medications during has been associated with a significant increase in symptom relapse. If an overdose occurs call your doctor or 911. You may need urgent medical care. You may also contact the poison control center at . A specific treatment to reverse the effects of lithium does not exist, but there are treatments to decrease the effects of the medication. Only a doctor can determine if you require treatment. Avoid drinking alcohol or using illegal drugs while you are taking lithium. They may decrease the benefits (e.g., worsen your condition) and increase adverse effects (e.g., sedation) of the medication. Avoid low sodium diets and dehydration because this can increase the risk of lithium toxicity. Avoid over the counter and prescription pain medications that contain nonsteroidal anti-inflammator y medications (NSAIDS) such as ibuprofen (Motrin, Advil) or naproxen (Aleve, Naprosyn) because these medications can increase the risk of toxicity from lithium. Avoid excessive intake of caffeinated beverages, such as coffee, tea, cola or energy drinks, since these may decrease levels of lithium and decrease effectiveness of the medication. Discontinuing caffeine use may increase lithium levels. Consult your health care provider before reducing or stopping caffeine use. What are the possible side effects of lithium? Common side effects Headache Nausea or vomiting Diarrhea Dizziness or drowsiness Changes in appetite Hand tremors Dry mouth Increased thirst Increased urination Thinning of hair or hair loss Acne-like rash Rare/Serious side effects Signs of lithium toxicity include severe nausea and vomiting, severe hand tremors, confusion, vision changes, and unsteadiness while standing or walking. These symptoms need to be addressed immediately with a medical doctor to ensure your lithium level is not dangerously high. In rare cases, lithium may lead to a reversible condition known as diabetes insipidus. If this occurs you would notice a significant increase in thirst and how much fluid you drink and how much you urinate. Talk to your doctor if you notice you are urinating more frequently than usual. Are There Any Risks For Taking [place] For Long Periods Of Time? Hypothyroidism (low levels of thyroid hormone) may occur with long-term lithium use. Rare kidney problems have been associated with long-term use of lithium. The risk increases with high levels of lithium. Your doctor will monitor your kidney function at routine check-ups to ensure this does not occur. Summary of Black Box Warnings [place] Toxicity [place] toxicity is closely related to lithium blood levels and can occur at doses close to therapeutic levels; lithium levels should be monitored closely when starting the medication or if individuals experience side effects of the medication. discuss and educated on all rx Patient educated on all medications including potential benefits, side effects, risks. Educated on proper dosing schedule and importance of compliance educated on all medications, benefits, side effects and risk, and educated on depression, anxiety, and ADHD, mood d/o and educated on compliance of medications, metabolic and movement d/o education appointment's, continue therapy discussion with patient about course of treatment and patient instructions. education on serotonin syndrome Discussed and educated pt regarding benzodiazepines are generally not intended for prolonged use and that use can cause tolerance, dependence, depression, and associated memory issues including dementias (this list is not exhaustive). Benzodiazepine use is generally not recommended concurrently with pain medications and/or other controlled substances educated on all medications, benefits, side effects and risk, and educated on depression, anxiety, and ADHD, mood d/o and educated on compliance of medications, metabolic and movement d/o education appointment is, continue therapy discussion with patient about course of treatment and patient instructions. education on serotonin syndrome SSRI/SNRI side effects discussed including but not limited to, gastric upset, nausea, vomiting, diarrhea and/or constipation, weight changes, sexual side effects including loss of libido, increased suicidal thoughts/behavio rs in children and young adults, and serotonin syndrome. Second generation antipsychotics (SGAs) have metabolic syndrome issues with weight gain, increase in prolactin, increased waist circumference, increased lipids, and increased glucose. Thus routine monitoring of weight, metabolic labs, etc. is indicated. A general rank ordering of antipsychotics that have the greatest to the least risk of metabolic effects is olanzapine, quetiapine, risperidone, ziprasidone, and aripiprazole. However, weight gain can occur with all of these drugs and considerable variability exists among patients receiving the same drug regarding the risk of metabolic effects. Anti-psychotic agents not only increase the risk of metabolic disorder, they also increase the risk of CVA, akathisia, and movement disorders including EPS or tardive dyskinesia (more common with first generation antipsychotics) and more. websites http_s://www.nim h.nih.gov/health /topics/mental-h ealth-medication s http_s://www.nam i.org/About-Ment al-Illness/Treat ments/Mental-Hea lth-Medications http_s://www.nam i.org/About-Ment al-Illness/Menta d-Dhzxdt-Ugnvxwq ons http_s://psychce Dónde/deprvika myrna/the-cogniti tm-qkmlvgcj-ty-d epression#treatm ents http__s://www.ni .nih.gov/healt h/topics/mental- health-medicatio ns http__s://www.na mi.org/About-Men prachi-Illness/Tamika tments/Mental-He alth-Medications http_s://estrellita.ni h.gov/publicatio ns/drugfacts/can nabis-marijuana http_s://www.[employer]/can xewcp-hra-dpyhru pe-cqzwuviba-xxn d/ Medication Management and Follow-Up - Plan: - Schedule follow-up appointments every 1-3 months to monitor the patient's response to the medication regimen. - Reinforce the importance of avoiding recreational drug use due to potential neurotoxicity and interactions with prescribed medications. 08/09/2025 Poor sleep hygiene (ICD-10 - Z72.821) 1.Depression Cymbalta 60 mg daily in am - helping on rx - PCP fills [id number] at bedtime for depression and suicide prevention - helping discuss therapy options- pateint will wait at this time 2. Anxiety Cymbalta 60 mg daily in am- PCP fills 3.Poor Sleep hygeine Sleep Hygeine- - KEEP YOUR BEDROOM DARK - GET LOTS OF NATURAL LIGHT IN THE MORNING. - DON'T WORK ON YOUR COMPUTER OR PHONE LATE AT NIGHT. - AVOID NAPS DURING THE DAY. - NO CAFFEINE 3 HOURS OR MORE AFTER WAKE UP TIME. - ONLY USE YOUR BED FOR SLEEPING - GET A RELAXATION ROUTINE BEFORE BED. - IF YOU CAN'T GET TO SLEEP AFTER 15 TO 30 MINUTES GET OUT OF BED AND DO SOMETHING RELAXING. - DON'T DRINK ALCOHOL IN THE EVENING or limit alcohol to 1 drink. 4. Tobacco use Smoking Education Do not smoke. Nicotine and other chemicals in cigarettes and cigars can cause lung damage. Ask your healthcare provider for information if you currently smoke and need help to quit. E-cigarettes or smokeless tobacco still contain nicotine. Talk to your healthcare provider before you use these products. education on decrease to stopping nicotine products and stop smoking hotline given Quit - Yes [place] Tobacco Quitline Call a Smoking Quitline The [employer] [place] Smoking Quitline, (8-212-09E-QUIT) Smokefree.gov, which connects you with your State's Quitline, (3-850-DCTSBGK) Veterans Smoking Quitline, (4-755-MWUXAEA) 5. Cannabis use- discuss decrease use to stopping Cannabis Use Education Recommend decrease/stop cannabis use as it can negatively impact mood, motivation, anxiety, sleep, focus/concentrat ion/memory (vigilance, elasticity, processing and attention); can also contribute to development of psychosis. Recommend decrease/stop cannabis use as it may be negatively impacting mood, motivation, anxiety, sleep, focus; can also contribute to development of psychosis Cannabis/marijua na information: http_s://estrellita.ni h.gov/publicatio ns/drugfacts/can nabis-marijuana http_s://www.[employer]/can fayxh-hvg-gwnsyk dw-dsosojdks-txe / elevated blood pressure B/P EDUCATION-instru cted to call PCP or urgent care due to elevated blood pressure- patient will see a provider Wednesday on RX B/P discuss cardiovascular risk with elevated B/P ON RX educated on healthy b/p 120/80 monitor b/p at home refer to PCP, heart healthy diet and excise limit salt intake limit soda intake and caffiene increase water 7. 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 Suicidal thoughts denies S/HI no plans or intent passive thoughts for years no active thoughts educated on 988/911 safety plan support system go to nearest ER with SI/HI plans or intent increase passive thoughts, active thoughts discuss and educated on [place] 150 mg at bedtime for depression and suicide prevention [place] education [place] use reviewed. Risks include risks of toxicity, arrhythmias, cognitive impairment, changes in muscle coordination, weight gain, thyroid and parathyroid changes, polydipsia and polyuria, alopecia, tremor and teratogenicity ( defects). Recommend avoid in females (use contraception consistently). Routine lab monitoring may be required. Patient consented to treatment. Indications: acute ronald (euphoric ronald), bipolar prophylaxis, bipolar depression treatment or augmentation, unipolar depression as augmentation with antidepressants Average dose = I,500 mg/day, target serum level 0.8 [place] is known to reduce risk of suicide. Mechanism of action: inhibits inositol monophosphatase, interfering with 2nd messengers Nuisance Side Effects: sedation, cognitive difficulties, decreased creativity, dry mouth, tremor, increased appetite, weight gain, polydipsia, polyuria, nausea, diarrhea, acne, alopecia Serious Side Effects: Thyroid: hypothyroidism (5%), goiter (3%) Cardiac: decrease in cardiac conduction leading to sick sinus syndrome, blocks SA node Teratogenicity: Ebstein's anomaly 2 in 1,000 Renal: chronic renal insufficiency (after 10-20 years), acute renal failure, polyuria occurs in 50-70% [lithium antagonizes anti-diuretic hormone (ADH)], diabetes insipidus in 10% (treat with amiloride) Drug-drug interactions: increase in lithium: NSAIDs, THELMA inhibitors, angiotensin II antagonists If you are planning on becoming , notify your health care provider so that he/she can best manage your medications. People living with bipolar disorder who wish to become face important decisions. It is important to discuss the risks and benefits of treatment with your doctor and caregivers. [place] has been associated with an increased risk of Ebstein's anomaly, a heart valve defect. Even though data suggest that the risk of Ebstein's anomaly from first trimester use of lithium is very low, an ultrasound of the heart is recommended at 16 to 20 weeks of gestation. [place] levels should be monitored monthly in early and weekly near delivery. Do not stop taking lithium without first speaking to your health care provider. Discontinuing mood stabilizer medications during has been associated with a significant increase in symptom relapse. If an overdose occurs call your doctor or 911. You may need urgent medical care. You may also contact the poison control center at . A specific treatment to reverse the effects of lithium does not exist, but there are treatments to decrease the effects of the medication. Only a doctor can determine if you require treatment. Avoid drinking alcohol or using illegal drugs while you are taking lithium. They may decrease the benefits (e.g., worsen your condition) and increase adverse effects (e.g., sedation) of the medication. Avoid low sodium diets and dehydration because this can increase the risk of lithium toxicity. Avoid over the counter and prescription pain medications that contain nonsteroidal anti-inflammator y medications (NSAIDS) such as ibuprofen (Motrin, Advil) or naproxen (Aleve, Naprosyn) because these medications can increase the risk of toxicity from lithium. Avoid excessive intake of caffeinated beverages, such as coffee, tea, cola or energy drinks, since these may decrease levels of lithium and decrease effectiveness of the medication. Discontinuing caffeine use may increase lithium levels. Consult your health care provider before reducing or stopping caffeine use. What are the possible side effects of lithium? Common side effects Headache Nausea or vomiting Diarrhea Dizziness or drowsiness Changes in appetite Hand tremors Dry mouth Increased thirst Increased urination Thinning of hair or hair loss Acne-like rash Rare/Serious side effects Signs of lithium toxicity include severe nausea and vomiting, severe hand tremors, confusion, vision changes, and unsteadiness while standing or walking. These symptoms need to be addressed immediately with a medical doctor to ensure your lithium level is not dangerously high. In rare cases, lithium may lead to a reversible condition known as diabetes insipidus. If this occurs you would notice a significant increase in thirst and how much fluid you drink and how much you urinate. Talk to your doctor if you notice you are urinating more frequently than usual. Are There Any Risks For Taking [place] For Long Periods Of Time? Hypothyroidism (low levels of thyroid hormone) may occur with long-term lithium use. Rare kidney problems have been associated with long-term use of lithium. The risk increases with high levels of lithium. Your doctor will monitor your kidney function at routine check-ups to ensure this does not occur. Summary of Black Box Warnings [place] Toxicity [place] toxicity is closely related to lithium blood levels and can occur at doses close to therapeutic levels; lithium levels should be monitored closely when starting the medication or if individuals experience side effects of the medication. discuss and educated on all rx Patient educated on all medications including potential benefits, side effects, risks. Educated on proper dosing schedule and importance of compliance educated on all medications, benefits, side effects and risk, and educated on depression, anxiety, and ADHD, mood d/o and educated on compliance of medications, metabolic and movement d/o education appointment's, continue therapy discussion with patient about course of treatment and patient instructions. education on serotonin syndrome Discussed and educated pt regarding benzodiazepines are generally not intended for prolonged use and that use can cause tolerance, dependence, depression, and associated memory issues including dementias (this list is not exhaustive). Benzodiazepine use is generally not recommended concurrently with pain medications and/or other controlled substances educated on all medications, benefits, side effects and risk, and educated on depression, anxiety, and ADHD, mood d/o and educated on compliance of medications, metabolic and movement d/o education appointment is, continue therapy discussion with patient about course of treatment and patient instructions. education on serotonin syndrome SSRI/SNRI side effects discussed including but not limited to, gastric upset, nausea, vomiting, diarrhea and/or constipation, weight changes, sexual side effects including loss of libido, increased suicidal thoughts/behavio rs in children and young adults, and serotonin syndrome. Second generation antipsychotics (SGAs) have metabolic syndrome issues with weight gain, increase in prolactin, increased waist circumference, increased lipids, and increased glucose. Thus routine monitoring of weight, metabolic labs, etc. is indicated. A general rank ordering of antipsychotics that have the greatest to the least risk of metabolic effects is olanzapine, quetiapine, risperidone, ziprasidone, and aripiprazole. However, weight gain can occur with all of these drugs and considerable variability exists among patients receiving the same drug regarding the risk of metabolic effects. Anti-psychotic agents not only increase the risk of metabolic disorder, they also increase the risk of CVA, akathisia, and movement disorders including EPS or tardive dyskinesia (more common with first generation antipsychotics) and more. websites http_s://www.[facility].nih.gov/health /topics/mental-h ealth-medication s http_s://www.nam i.org/About-Ment al-Illness/Treat ments/Mental-Hea lth-Medications http_s://www.nam i.org/About-Ment al-Illness/Menta d-Ixzayf-Bponhfn ons http_s://psychYouWeb/deprvika norris/the-cogniti eb-zxlsmyns-ej-d epression#treatm ents http__s://www.[facility].nih.gov/healt h/topics/mental- health-medicatio ns http__s://www.na [place].org/About-Men prachi-Illness/Tamika tments/Mental-He alth-Medications http_s://estrellita.ni h.gov/publicatio ns/drugfacts/can nabis-marijuana http_s://www.[employer]/can vjyvz-msx-eibcmz jx-arcikclzk-zrk d/ Medication Management and Follow-Up - Plan: - Schedule follow-up appointments every 1-3 months to monitor the patient's response to the medication regimen. - Reinforce the importance of avoiding recreational drug use due to potential neurotoxicity and interactions with prescribed medications. 06/22/2025 Nicotine use (ICD-10 - Z72.0) 1.Depression Cymbalta 60 mg daily in am - helping last month on rx PCP prescribe rx discuss therapy options- pateint will wait at this time 2. Anxiety Cymbalta 60 mg daily in am 3.Poor Sleep hygeine Sleep Hygeine- - KEEP YOUR BEDROOM DARK - GET LOTS OF NATURAL LIGHT IN THE MORNING. - DON'T WORK ON YOUR COMPUTER OR PHONE LATE AT NIGHT. - AVOID NAPS DURING THE DAY. - NO CAFFEINE 3 HOURS OR MORE AFTER WAKE UP TIME. - ONLY USE YOUR BED FOR SLEEPING - GET A RELAXATION ROUTINE BEFORE BED. - IF YOU CAN'T GET TO SLEEP AFTER 15 TO 30 MINUTES GET OUT OF BED AND DO SOMETHING RELAXING. - DON'T DRINK ALCOHOL IN THE EVENING or limit alcohol to 1 drink. 4. Tobacco use Smoking Education Do not smoke. Nicotine and other chemicals in cigarettes and cigars can cause lung damage. Ask your healthcare provider for information if you currently smoke and need help to quit. E-cigarettes or smokeless tobacco still contain nicotine. Talk to your healthcare provider before you use these products. education on decrease to stopping nicotine products and stop smoking hotline given Quit - Yes [place] Tobacco Quitline Call a Smoking Quitline The [employer] [place] Smoking Quitline, (0-642-32V-QUIT) Smokefree.gov, which connects you with your [facility]'s Quitline, (5-857-POLTXJZ) Veterans Smoking Quitline, (5-079-PHVBKMS) 5. Cannabis use Cannabis Use Education Recommend decrease/stop cannabis use as it can negatively impact mood, motivation, anxiety, sleep, focus/concentrat ion/memory (vigilance, elasticity, processing and attention); can also contribute to development of psychosis. Recommend decrease/stop cannabis use as it may be negatively impacting mood, motivation, anxiety, sleep, focus; can also contribute to development of psychosis Cannabis/marijua na information: http_s://estrellita.ni h.gov/publicatio ns/drugfacts/can nabis-marijuana http_s://www.[employer]/can jldal-eth-vsuhni tg-dgemtucqh-shc d/ 6/ elevated blood pressure B/P EDUCATION educated on healthy b/p 120/80 monitor b/p at home refer to PCP, heart healthy diet and excise limit salt intake limit soda intake and caffiene increase water 7. 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 Educated on proper dosing schedule and importance of compliance educated on all medications, benefits, side effects and risk, and educated on depression, anxiety, and ADHD, mood d/o and educated on compliance of medications, metabolic and movement d/o education appointment's, continue therapy discussion with patient about course of treatment and patient instructions. education on serotonin syndrome Discussed and educated pt regarding benzodiazepines are generally not intended for prolonged use and that use can cause tolerance, dependence, depression, and associated memory issues including dementias (this list is not exhaustive). Benzodiazepine use is generally not recommended concurrently with pain medications and/or other controlled substances educated on all medications, benefits, side effects and risk, and educated on depression, anxiety, and ADHD, mood d/o and educated on compliance of medications, metabolic and movement d/o education appointment is, continue therapy discussion with patient about course of treatment and patient instructions. education on serotonin syndrome SSRI/SNRI side effects discussed including but not limited to, gastric upset, nausea, vomiting, diarrhea and/or constipation, weight changes, sexual side effects including loss of libido, increased suicidal thoughts/behavio rs in children and young adults, and serotonin syndrome. Second generation antipsychotics (SGAs) have metabolic syndrome issues with weight gain, increase in prolactin, increased waist circumference, increased lipids, and increased glucose. Thus routine monitoring of weight, metabolic labs, etc. is indicated. A general rank ordering of antipsychotics that have the greatest to the least risk of metabolic effects is olanzapine, quetiapine, risperidone, ziprasidone, and aripiprazole. However, weight gain can occur with all of these drugs and considerable variability exists among patients receiving the same drug regarding the risk of metabolic effects. Anti-psychotic agents not only increase the risk of metabolic disorder, they also increase the risk of CVA, akathisia, and movement disorders including EPS or tardive dyskinesia (more common with first generation antipsychotics) and more. websites http_s://www.[facility].nih.gov/health /topics/mental-h ealth-medication s http_s://www.nam i.org/About-Ment al-Illness/Treat ments/Mental-Hea lth-Medications http_s://www.nam i.org/About-Ment al-Illness/Menta l-Bgnvke-Nugubtd ons http_s://[employer]/depres myrna/the-cogniti oc-sxfinhly-ur-d epression#treatm ents http__s://www.[facility].nih.gov/healt h/topics/mental- health-medicatio ns http__s://www.na mi.org/About-Men prachi-Illness/Tamika tments/Mental-He alth-Medications http_s://estrellita. h.gov/publicatio ns/drugfacts/can nabis-marijuana http_s://www.[employer]/can mzhza-lwk-miptnb xz-vqyhkmils-fzb d/ Medication Management and Follow-Up - Plan: - Schedule follow-up appointments every 1-3 months to monitor the patient's response to the medication regimen. - Reinforce the importance of avoiding recreational drug use due to potential neurotoxicity and interactions with prescribed medications. 05/25/2025 Dietary counseling and surveillance (ICD-10 - Z71.3) 1.Depression Cymbalta 60 mg daily in am - helping last month on rx PCP prescribe rx discuss therapy options- pateint will wait at this time 2. Anxiety Cymbalta 60 mg daily in am 3.Poor Sleep hygeine Sleep Hygeine- - KEEP YOUR BEDROOM DARK - GET LOTS OF NATURAL LIGHT IN THE MORNING. - DON'T WORK ON YOUR COMPUTER OR PHONE LATE AT NIGHT. - AVOID NAPS DURING THE DAY. - NO CAFFEINE 3 HOURS OR MORE AFTER WAKE UP TIME. - ONLY USE YOUR BED FOR SLEEPING - GET A RELAXATION ROUTINE BEFORE BED. - IF YOU CAN'T GET TO SLEEP AFTER 15 TO 30 MINUTES GET OUT OF BED AND DO SOMETHING RELAXING. - DON'T DRINK ALCOHOL IN THE EVENING or limit alcohol to 1 drink. 4. Tobacco use Smoking Education Do not smoke. Nicotine and other chemicals in cigarettes and cigars can cause lung damage. Ask your healthcare provider for information if you currently smoke and need help to quit. E-cigarettes or smokeless tobacco still contain nicotine. Talk to your healthcare provider before you use these products. education on decrease to stopping nicotine products and stop smoking hotline given Quit - Yes [place] Tobacco Quitline Call a Smoking Quitline The [employer] [facility] [place] Smoking Quitline, (8-182-96S-QUIT) Smokefree.gov, which connects you with your [facility]'s Quitline, (1-266-ZXGJUSY) Veterans Smoking Quitline, (8-729-KHKYESG) 5. Cannabis use Cannabis Use Education Recommend decrease/stop cannabis use as it can negatively impact mood, motivation, anxiety, sleep, focus/concentrat ion/memory (vigilance, elasticity, processing and attention); can also contribute to development of psychosis. Recommend decrease/stop cannabis use as it may be negatively impacting mood, motivation, anxiety, sleep, focus; can also contribute to development of psychosis Cannabis/marijua na information: http_s://estrellita.ni h.gov/publicatio ns/drugfacts/can nabis-marijuana http_s://www.[employer]/can eawfw-hto-mfjcgu yt-rsgkscdwe-nln d/ 6/ elevated blood pressure B/P EDUCATION educated on healthy b/p 120/80 monitor b/p at home refer to PCP, heart healthy diet and excise limit salt intake limit soda intake and caffiene increase water 7. ADD Schedule Creyos testing educated on cardiovascular health and HTN discuss non-stimualtes no control subtance prescribed by RADHA r/t cannabis use and HTN Patient educated on all medications including potential benefits, side effects, risks. Educated on proper dosing schedule and importance of compliance educated on all medications, benefits, side effects and risk, and educated on depression, anxiety, and ADHD, mood d/o and educated on compliance of medications, metabolic and movement d/o education appointment's, continue therapy discussion with patient about course of treatment and patient instructions. education on serotonin syndrome Discussed and educated pt regarding benzodiazepines are generally not intended for prolonged use and that use can cause tolerance, dependence, depression, and associated memory issues including dementias (this list is not exhaustive). Benzodiazepine use is generally not recommended concurrently with pain medications and/or other controlled substances educated on all medications, benefits, side effects and risk, and educated on depression, anxiety, and ADHD, mood d/o and educated on compliance of medications, metabolic and movement d/o education appointment is, continue therapy discussion with patient about course of treatment and patient instructions. education on serotonin syndrome SSRI/SNRI side effects discussed including but not limited to, gastric upset, nausea, vomiting, diarrhea and/or constipation, weight changes, sexual side effects including loss of libido, increased suicidal thoughts/behavio rs in children and young adults, and serotonin syndrome. Second generation antipsychotics (SGAs) have metabolic syndrome issues with weight gain, increase in prolactin, increased waist circumference, increased lipids, and increased glucose. Thus routine monitoring of weight, metabolic labs, etc. is indicated. A general rank ordering of antipsychotics that have the greatest to the least risk of metabolic effects is olanzapine, quetiapine, risperidone, ziprasidone, and aripiprazole. However, weight gain can occur with all of these drugs and considerable variability exists among patients receiving the same drug regarding the risk of metabolic effects. Anti-psychotic agents not only increase the risk of metabolic disorder, they also increase the risk of CVA, akathisia, and movement disorders including EPS or tardive dyskinesia (more common with first generation antipsychotics) and more. websites http_s://www.nim h.nih.gov/health /topics/mental-h ealth-medication s http_s://www.nam i.org/About-Ment al-Illness/Treat ments/Mental-Hea lth-Medications http_s://www.nam i.org/About-Ment al-Illness/Menta y-Zjdfki-Cmhasww ons http_s://psychce [employer]rav.com/deprvika norris/the-cogniti vt-gguprgxa-qo-d epression#treatm ents http__s://www.ni .nih.gov/healt h/topics/mental- health-medicatio ns http__s://www.na mi.org/About-Men prachi-Illness/Tamika millernts/Mental-He alth-Medications http_s://estrellita.ni h.gov/publicatio ns/drugfacts/can nabis-marijuana http_s://www.[employer]/can sisxm-ptp-ecpnzf yl-jhwmupftx-pmb d/ Medication Management and Follow-Up - Plan: - Schedule follow-up appointments every 1-3 months to monitor the patient's response to the medication regimen. - Reinforce the importance of avoiding recreational drug use due to potential neurotoxicity and interactions with prescribed medications. 05/25/2025 Elevated blood pressure reading (ICD-10 - R03.0) 1.Depression Cymbalta 60 mg daily in am - helping last month on rx PCP prescribe rx discuss therapy options- pateint will wait at this time 2. Anxiety Cymbalta 60 mg daily in am 3.Poor Sleep hygeine Sleep Hygeine- - KEEP YOUR BEDROOM DARK - GET LOTS OF NATURAL LIGHT IN THE MORNING. - DON'T WORK ON YOUR COMPUTER OR PHONE LATE AT NIGHT. - AVOID NAPS DURING THE DAY. - NO CAFFEINE 3 HOURS OR MORE AFTER WAKE UP TIME. - ONLY USE YOUR BED FOR SLEEPING - GET A RELAXATION ROUTINE BEFORE BED. - IF YOU CAN'T GET TO SLEEP AFTER 15 TO 30 MINUTES GET OUT OF BED AND DO SOMETHING RELAXING. - DON'T DRINK ALCOHOL IN THE EVENING or limit alcohol to 1 drink. 4. Tobacco use Smoking Education Do not smoke. Nicotine and other chemicals in cigarettes and cigars can cause lung damage. Ask your healthcare provider for information if you currently smoke and need help to quit. E-cigarettes or smokeless tobacco still contain nicotine. Talk to your healthcare provider before you use these products. education on decrease to stopping nicotine products and stop smoking hotline given Quit - Yes [place] Tobacco Quitline Call a Smoking Quitline The [employer] [facility] [place] Smoking Quitline, (5-899-01V-QUIT) Smokefree.gov, which connects you with your State's Quitline, (7-673-HQPLJVI) Veterans Smoking Quitline, (8-900-CHDCHSD) 5. Cannabis use Cannabis Use Education Recommend decrease/stop cannabis use as it can negatively impact mood, motivation, anxiety, sleep, focus/concentrat ion/memory (vigilance, elasticity, processing and attention); can also contribute to development of psychosis. Recommend decrease/stop cannabis use as it may be negatively impacting mood, motivation, anxiety, sleep, focus; can also contribute to development of psychosis Cannabis/marijua na information: http_s://estrellita.ni h.gov/publicatio ns/drugfacts/can nabis-marijuana http_s://www.[employer]/can qjbmw-nqj-dgutnb ko-lfeqlfnvw-qdw d/ 6/ elevated blood pressure B/P EDUCATION educated on healthy b/p 120/80 monitor b/p at home refer to PCP, heart healthy diet and excise limit salt intake limit soda intake and caffiene increase water 7. ADD Schedule Creyos testing educated on cardiovascular health and HTN discuss non-stimualtes no control subtance prescribed by RADHA r/t cannabis use and HTN Patient educated on all medications including potential benefits, side effects, risks. Educated on proper dosing schedule and importance of compliance educated on all medications, benefits, side effects and risk, and educated on depression, anxiety, and ADHD, mood d/o and educated on compliance of medications, metabolic and movement d/o education appointment's, continue therapy discussion with patient about course of treatment and patient instructions. education on serotonin syndrome Discussed and educated pt regarding benzodiazepines are generally not intended for prolonged use and that use can cause tolerance, dependence, depression, and associated memory issues including dementias (this list is not exhaustive). Benzodiazepine use is generally not recommended concurrently with pain medications and/or other controlled substances educated on all medications, benefits, side effects and risk, and educated on depression, anxiety, and ADHD, mood d/o and educated on compliance of medications, metabolic and movement d/o education appointment is, continue therapy discussion with patient about course of treatment and patient instructions. education on serotonin syndrome SSRI/SNRI side effects discussed including but not limited to, gastric upset, nausea, vomiting, diarrhea and/or constipation, weight changes, sexual side effects including loss of libido, increased suicidal thoughts/behavio rs in children and young adults, and serotonin syndrome. Second generation antipsychotics (SGAs) have metabolic syndrome issues with weight gain, increase in prolactin, increased waist circumference, increased lipids, and increased glucose. Thus routine monitoring of weight, metabolic labs, etc. is indicated. A general rank ordering of antipsychotics that have the greatest to the least risk of metabolic effects is olanzapine, quetiapine, risperidone, ziprasidone, and aripiprazole. However, weight gain can occur with all of these drugs and considerable variability exists among patients receiving the same drug regarding the risk of metabolic effects. Anti-psychotic agents not only increase the risk of metabolic disorder, they also increase the risk of CVA, akathisia, and movement disorders including EPS or tardive dyskinesia (more common with first generation antipsychotics) and more. websites http_s://www.[facility].nih.gov/health /topics/mental-h ealth-medication s http_s://www.nam i.[employer]/About-Ment al-Illness/Treat ments/Mental-Hea lth-Medications http_s://www.nam i.org/About-Ment al-Illness/Menta x-Ufvobe-Rgobose ons http_s://psychYouWeb/deprvika myrna/the-cogniti fp-bviisbzb-yv-d epression#treatm ents http__s://www.ni .nih.gov/healt h/topics/mental- health-medicatio ns http__s://www.na ct.org/About-Men prachi-Illness/Tamika tments/Mental-He alth-Medications http_s://estrellita. h.gov/publicatio ns/drugfacts/can nabis-marijuana http_s://www.[employer]/can cqcqk-vle-aewdzo do-kkmfvamwr-gdu d/ Medication Management and Follow-Up - Plan: - Schedule follow-up appointments every 1-3 months to monitor the patient's response to the medication regimen. - Reinforce the importance of avoiding recreational drug use due to potential neurotoxicity and interactions with prescribed medications. 06/22/2025 Marijuana use (ICD-10 - F12.90) 1.Depression Cymbalta 60 mg daily in am - helping last month on rx PCP prescribe rx discuss therapy options- pateint will wait at this time 2. Anxiety Cymbalta 60 mg daily in am 3.Poor Sleep hygeine Sleep Hygeine- - KEEP YOUR BEDROOM DARK - GET LOTS OF NATURAL LIGHT IN THE MORNING. - DON'T WORK ON YOUR COMPUTER OR PHONE LATE AT NIGHT. - AVOID NAPS DURING THE DAY. - NO CAFFEINE 3 HOURS OR MORE AFTER WAKE UP TIME. - ONLY USE YOUR BED FOR SLEEPING - GET A RELAXATION ROUTINE BEFORE BED. - IF YOU CAN'T GET TO SLEEP AFTER 15 TO 30 MINUTES GET OUT OF BED AND DO SOMETHING RELAXING. - DON'T DRINK ALCOHOL IN THE EVENING or limit alcohol to 1 drink. 4. Tobacco use Smoking Education Do not smoke. Nicotine and other chemicals in cigarettes and cigars can cause lung damage. Ask your healthcare provider for information if you currently smoke and need help to quit. E-cigarettes or smokeless tobacco still contain nicotine. Talk to your healthcare provider before you use these products. education on decrease to stopping nicotine products and stop smoking hotline given Quit - Yes [place] Tobacco Quitline Call a Smoking Quitline The [employer] [facility] [place] Smoking Quitline, (0-118-73J-QUIT) Smokefree.gov, which connects you with your [facility]'s Quitline, (2-874-VMWWLNY) [facility] Smoking Quitline, (9-110-EQCOTZI) 5. Cannabis use Cannabis Use Education Recommend decrease/stop cannabis use as it can negatively impact mood, motivation, anxiety, sleep, focus/concentrat ion/memory (vigilance, elasticity, processing and attention); can also contribute to development of psychosis. Recommend decrease/stop cannabis use as it may be negatively impacting mood, motivation, anxiety, sleep, focus; can also contribute to development of psychosis Cannabis/marijua na information: http_s://estrellita.ni h.gov/publicatio ns/drugfacts/can nabis-marijuana http_s://www.[employer]/can acjjj-kuu-wlvsfr cz-wmtlbmawq-bkr d/ 6/ elevated blood pressure B/P EDUCATION educated on healthy b/p 120/80 monitor b/p at home refer to PCP, heart healthy diet and excise limit salt intake limit soda intake and caffiene increase water 7. 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 Educated on proper dosing schedule and importance of compliance educated on all medications, benefits, side effects and risk, and educated on depression, anxiety, and ADHD, mood d/o and educated on compliance of medications, metabolic and movement d/o education appointment's, continue therapy discussion with patient about course of treatment and patient instructions. education on serotonin syndrome Discussed and educated pt regarding benzodiazepines are generally not intended for prolonged use and that use can cause tolerance, dependence, depression, and associated memory issues including dementias (this list is not exhaustive). Benzodiazepine use is generally not recommended concurrently with pain medications and/or other controlled substances educated on all medications, benefits, side effects and risk, and educated on depression, anxiety, and ADHD, mood d/o and educated on compliance of medications, metabolic and movement d/o education appointment is, continue therapy discussion with patient about course of treatment and patient instructions. education on serotonin syndrome SSRI/SNRI side effects discussed including but not limited to, gastric upset, nausea, vomiting, diarrhea and/or constipation, weight changes, sexual side effects including loss of libido, increased suicidal thoughts/behavio rs in children and young adults, and serotonin syndrome. Second generation antipsychotics (SGAs) have metabolic syndrome issues with weight gain, increase in prolactin, increased waist circumference, increased lipids, and increased glucose. Thus routine monitoring of weight, metabolic labs, etc. is indicated. A general rank ordering of antipsychotics that have the greatest to the least risk of metabolic effects is olanzapine, quetiapine, risperidone, ziprasidone, and aripiprazole. However, weight gain can occur with all of these drugs and considerable variability exists among patients receiving the same drug regarding the risk of metabolic effects. Anti-psychotic agents not only increase the risk of metabolic disorder, they also increase the risk of CVA, akathisia, and movement disorders including EPS or tardive dyskinesia (more common with first generation antipsychotics) and more. websites http_s://www.[facility].nih.gov/health /topics/mental-h ealth-medication s http_s://www.nam i.org/About-Ment al-Illness/Treat ments/Mental-Hea lth-Medications http_s://www.nam i.org/About-Ment al-Illness/Menta p-Tajgel-Qisdkje ons http_s://psychYouWeb/deprvika myrna/the-cogniti yx-ephqhydy-jl-d epression#treatm ents http__s://www.ni .nih.gov/healt h/topics/mental- health-medicatio ns http__s://www.na mi.org/About-Men prachi-Illness/Tamika tments/Mental-He alth-Medications http_s://estrellita.ni h.gov/publicatio ns/drugfacts/can nabis-marijuana http_s://www.[employer]/can vctjx-kdr-bxnkqd ur-gxdusrvvd-xsj d/ Medication Management and Follow-Up - Plan: - Schedule follow-up appointments every 1-3 months to monitor the patient's response to the medication regimen. - Reinforce the importance of avoiding recreational drug use due to potential neurotoxicity and interactions with prescribed medications. 08/09/2025 Attention deficit disorder (ADD) in adult (ICD-10 - F98.8) 1.Depression Cymbalta 60 mg daily in am - helping on rx - PCP fills [id number] at bedtime for depression and suicide prevention - helping discuss therapy options- pateint will wait at this time 2. Anxiety Cymbalta 60 mg daily in am- PCP fills 3.Poor Sleep hygeine Sleep Hygeine- - KEEP YOUR BEDROOM DARK - GET LOTS OF NATURAL LIGHT IN THE MORNING. - DON'T WORK ON YOUR COMPUTER OR PHONE LATE AT NIGHT. - AVOID NAPS DURING THE DAY. - NO CAFFEINE 3 HOURS OR MORE AFTER WAKE UP TIME. - ONLY USE YOUR BED FOR SLEEPING - GET A RELAXATION ROUTINE BEFORE BED. - IF YOU CAN'T GET TO SLEEP AFTER 15 TO 30 MINUTES GET OUT OF BED AND DO SOMETHING RELAXING. - DON'T DRINK ALCOHOL IN THE EVENING or limit alcohol to 1 drink. 4. Tobacco use Smoking Education Do not smoke. Nicotine and other chemicals in cigarettes and cigars can cause lung damage. Ask your healthcare provider for information if you currently smoke and need help to quit. E-cigarettes or smokeless tobacco still contain nicotine. Talk to your healthcare provider before you use these products. education on decrease to stopping nicotine products and stop smoking hotline given Quit - Yes [place] Tobacco Quitline Call a Smoking Quitline The [employer] [place]'s Smoking Quitline, (7-078-67B-QUIT) Smokefree.gov, which connects you with your State's Quitline, (3-616-BGSWKFC) Veterans Smoking Quitline, (9-344-NWJWUMN) 5. Cannabis use- discuss decrease use to stopping Cannabis Use Education Recommend decrease/stop cannabis use as it can negatively impact mood, motivation, anxiety, sleep, focus/concentrat ion/memory (vigilance, elasticity, processing and attention); can also contribute to development of psychosis. Recommend decrease/stop cannabis use as it may be negatively impacting mood, motivation, anxiety, sleep, focus; can also contribute to development of psychosis Cannabis/marijua na information: http_s://estrellita.ni h.gov/publicatio ns/drugfacts/can nabis-marijuana http_s://www.[employer]/can iddmh-lsj-bwcikq he-sketbaimy-tol / elevated blood pressure B/P EDUCATION-instru cted to call PCP or urgent care due to elevated blood pressure- patient will see a provider Wednesday on RX B/P discuss cardiovascular risk with elevated B/P ON RX educated on healthy b/p 120/80 monitor b/p at home refer to PCP, heart healthy diet and excise limit salt intake limit soda intake and caffiene increase water 7. 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 Suicidal thoughts denies S/HI no plans or intent passive thoughts for years no active thoughts educated on 988/911 safety plan support system go to nearest ER with SI/HI plans or intent increase passive thoughts, active thoughts discuss and educated on [place] 150 mg at bedtime for depression and suicide prevention [place] education [place] use reviewed. Risks include risks of toxicity, arrhythmias, cognitive impairment, changes in muscle coordination, weight gain, thyroid and parathyroid changes, polydipsia and polyuria, alopecia, tremor and teratogenicity ( defects). Recommend avoid in females (use contraception consistently). Routine lab monitoring may be required. Patient consented to treatment. Indications: acute ronald (euphoric ronald), bipolar prophylaxis, bipolar depression treatment or augmentation, unipolar depression as augmentation with antidepressants Average dose = I,500 mg/day, target serum level 0.8 [place] is known to reduce risk of suicide. Mechanism of action: inhibits inositol monophosphatase, interfering with 2nd messengers Nuisance Side Effects: sedation, cognitive difficulties, decreased creativity, dry mouth, tremor, increased appetite, weight gain, polydipsia, polyuria, nausea, diarrhea, acne, alopecia Serious Side Effects: Thyroid: hypothyroidism (5%), goiter (3%) Cardiac: decrease in cardiac conduction leading to sick sinus syndrome, blocks SA node Teratogenicity: Ebstein's anomaly 2 in 1,000 Renal: chronic renal insufficiency (after 10-20 years), acute renal failure, polyuria occurs in 50-70% [lithium antagonizes anti-diuretic hormone (ADH)], diabetes insipidus in 10% (treat with amiloride) Drug-drug interactions: increase in lithium: NSAIDs, THELMA inhibitors, angiotensin II antagonists If you are planning on becoming , notify your health care provider so that he/she can best manage your medications. People living with bipolar disorder who wish to become face important decisions. It is important to discuss the risks and benefits of treatment with your doctor and caregivers. [place] has been associated with an increased risk of Ebstein's anomaly, a heart valve defect. Even though data suggest that the risk of Ebstein's anomaly from first trimester use of lithium is very low, an ultrasound of the heart is recommended at 16 to 20 weeks of gestation. [place] levels should be monitored monthly in early and weekly near delivery. Do not stop taking lithium without first speaking to your health care provider. Discontinuing mood stabilizer medications during has been associated with a significant increase in symptom relapse. If an overdose occurs call your doctor or 911. You may need urgent medical care. You may also contact the poison control center at . A specific treatment to reverse the effects of lithium does not exist, but there are treatments to decrease the effects of the medication. Only a doctor can determine if you require treatment. Avoid drinking alcohol or using illegal drugs while you are taking lithium. They may decrease the benefits (e.g., worsen your condition) and increase adverse effects (e.g., sedation) of the medication. Avoid low sodium diets and dehydration because this can increase the risk of lithium toxicity. Avoid over the counter and prescription pain medications that contain nonsteroidal anti-inflammator y medications (NSAIDS) such as ibuprofen (Motrin, Advil) or naproxen (Aleve, Naprosyn) because these medications can increase the risk of toxicity from lithium. Avoid excessive intake of caffeinated beverages, such as coffee, tea, cola or energy drinks, since these may decrease levels of lithium and decrease effectiveness of the medication. Discontinuing caffeine use may increase lithium levels. Consult your health care provider before reducing or stopping caffeine use. What are the possible side effects of lithium? Common side effects Headache Nausea or vomiting Diarrhea Dizziness or drowsiness Changes in appetite Hand tremors Dry mouth Increased thirst Increased urination Thinning of hair or hair loss Acne-like rash Rare/Serious side effects Signs of lithium toxicity include severe nausea and vomiting, severe hand tremors, confusion, vision changes, and unsteadiness while standing or walking. These symptoms need to be addressed immediately with a medical doctor to ensure your lithium level is not dangerously high. In rare cases, lithium may lead to a reversible condition known as diabetes insipidus. If this occurs you would notice a significant increase in thirst and how much fluid you drink and how much you urinate. Talk to your doctor if you notice you are urinating more frequently than usual. Are There Any Risks For Taking [place] For Long Periods Of Time? Hypothyroidism (low levels of thyroid hormone) may occur with long-term lithium use. Rare kidney problems have been associated with long-term use of lithium. The risk increases with high levels of lithium. Your doctor will monitor your kidney function at routine check-ups to ensure this does not occur. Summary of Black Box Warnings [place] Toxicity [place] toxicity is closely related to lithium blood levels and can occur at doses close to therapeutic levels; lithium levels should be monitored closely when starting the medication or if individuals experience side effects of the medication. discuss and educated on all rx Patient educated on all medications including potential benefits, side effects, risks. Educated on proper dosing schedule and importance of compliance educated on all medications, benefits, side effects and risk, and educated on depression, anxiety, and ADHD, mood d/o and educated on compliance of medications, metabolic and movement d/o education appointment's, continue therapy discussion with patient about course of treatment and patient instructions. education on serotonin syndrome Discussed and educated pt regarding benzodiazepines are generally not intended for prolonged use and that use can cause tolerance, dependence, depression, and associated memory issues including dementias (this list is not exhaustive). Benzodiazepine use is generally not recommended concurrently with pain medications and/or other controlled substances educated on all medications, benefits, side effects and risk, and educated on depression, anxiety, and ADHD, mood d/o and educated on compliance of medications, metabolic and movement d/o education appointment is, continue therapy discussion with patient about course of treatment and patient instructions. education on serotonin syndrome SSRI/SNRI side effects discussed including but not limited to, gastric upset, nausea, vomiting, diarrhea and/or constipation, weight changes, sexual side effects including loss of libido, increased suicidal thoughts/behavio rs in children and young adults, and serotonin syndrome. Second generation antipsychotics (SGAs) have metabolic syndrome issues with weight gain, increase in prolactin, increased waist circumference, increased lipids, and increased glucose. Thus routine monitoring of weight, metabolic labs, etc. is indicated. A general rank ordering of antipsychotics that have the greatest to the least risk of metabolic effects is olanzapine, quetiapine, risperidone, ziprasidone, and aripiprazole. However, weight gain can occur with all of these drugs and considerable variability exists among patients receiving the same drug regarding the risk of metabolic effects. Anti-psychotic agents not only increase the risk of metabolic disorder, they also increase the risk of CVA, akathisia, and movement disorders including EPS or tardive dyskinesia (more common with first generation antipsychotics) and more. websites http_s://www.nim h.nih.gov/health /topics/mental-h ealth-medication s http_s://www.nam i.org/About-Ment al-Illness/Treat ments/Mental-Hea lth-Medications http_s://www.nam i.org/About-Ment al-Illness/Menta d-Nlirnf-Ngmziwp ons http_s://psychce Arav.com/gu[place]upe onrris/the-cogniti dz-cxeggchn-mr-d epression#treatarturo ents http__s://www.ni .nih.gov/healt h/topics/mental- health-medicatio ns http__s://www.na mi.org/About-Men prachi-Illness/Tamika tments/Mental-He alth-Medications http_s://estrellita.ni h.gov/publicatio ns/drugfacts/can nabis-marijuana http_s://www.[employer]/can gjorn-whw-ytetrn lg-papqqryxm-gro d/ Medication Management and Follow-Up - Plan: - Schedule follow-up appointments every 1-3 months to monitor the patient's response to the medication regimen. - Reinforce the importance of avoiding recreational drug use due to potential neurotoxicity and interactions with prescribed medications. 07/20/2025 Attention deficit disorder (ADD) in adult (ICD-10 - F98.8) 1.Depression Cymbalta 60 mg daily in am - helping last month on rx Start [id number] at bedtime for depression and suicide prevention PCP prescribe rx discuss therapy options- pateint will wait at this time 2. Anxiety Cymbalta 60 mg daily in am 3.Poor Sleep hygeine Sleep Hygeine- - KEEP YOUR BEDROOM DARK - GET LOTS OF NATURAL LIGHT IN THE MORNING. - DON'T WORK ON YOUR COMPUTER OR PHONE LATE AT NIGHT. - AVOID NAPS DURING THE DAY. - NO CAFFEINE 3 HOURS OR MORE AFTER WAKE UP TIME. - ONLY USE YOUR BED FOR SLEEPING - GET A RELAXATION ROUTINE BEFORE BED. - IF YOU CAN'T GET TO SLEEP AFTER 15 TO 30 MINUTES GET OUT OF BED AND DO SOMETHING RELAXING. - DON'T DRINK ALCOHOL IN THE EVENING or limit alcohol to 1 drink. 4. Tobacco use Smoking Education Do not smoke. Nicotine and other chemicals in cigarettes and cigars can cause lung damage. Ask your healthcare provider for information if you currently smoke and need help to quit. E-cigarettes or smokeless tobacco still contain nicotine. Talk to your healthcare provider before you use these products. education on decrease to stopping nicotine products and stop smoking hotline given -Quit - Yes [place] Tobacco Quitline Call a Smoking Quitline The National Cancer [place]'s Smoking Quitline, (5-125-17S-QUIT) Smokefree.gov, which connects you with your State's Quitline, (5-514-YYPKLXL) Veterans Smoking Quitline, (1-221-XCPANNY) 5. Cannabis use- discuss decrease use to stopping Cannabis Use Education Recommend decrease/stop cannabis use as it can negatively impact mood, motivation, anxiety, sleep, focus/concentrat ion/memory (vigilance, elasticity, processing and attention); can also contribute to development of psychosis. Recommend decrease/stop cannabis use as it may be negatively impacting mood, motivation, anxiety, sleep, focus; can also contribute to development of psychosis Cannabis/marijua na information: http_s://estrellita.ni h.gov/publicatio ns/drugfacts/can nabis-marijuana http_s://www.[employer]/can prqif-frv-twnjqu xv-nlujuqaor-znz d/ 6/ elevated blood pressure B/P EDUCATION-instru cted to call PCP or urgent care due to elevated blood pressure- patient will see a provider today discuss cardiovascular risk with elevated B/P ON RX educated on healthy b/p 120/80 monitor b/p at home refer to PCP, heart healthy diet and excise limit salt intake limit soda intake and caffiene increase water 7. 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 Suicidal thoughts denies S/HI no plans or intent passive thoughts for years no active thoughts educated on 988/1 safety plan support system go to nearest ER with SI/HI plans or intent increase passive thoughts, active thoughts discuss and educated on [place] 150 mg at bedtime for depression and suicide prevention [place] education [place] use reviewed. Risks include risks of toxicity, arrhythmias, cognitive impairment, changes in muscle coordination, weight gain, thyroid and parathyroid changes, polydipsia and polyuria, alopecia, tremor and teratogenicity ( defects). Recommend avoid in females (use contraception consistently). Routine lab monitoring may be required. Patient consented to treatment. Indications: acute ronald (euphoric ronald), bipolar prophylaxis, bipolar depression treatment or augmentation, unipolar depression as augmentation with antidepressants Average dose = I,500 mg/day, target serum level 0.8 [place] is known to reduce risk of suicide. Mechanism of action: inhibits inositol monophosphatase, interfering with 2nd messengers Nuisance Side Effects: sedation, cognitive difficulties, decreased creativity, dry mouth, tremor, increased appetite, weight gain, polydipsia, polyuria, nausea, diarrhea, acne, alopecia Serious Side Effects: Thyroid: hypothyroidism (5%), goiter (3%) Cardiac: decrease in cardiac conduction leading to sick sinus syndrome, blocks SA node Teratogenicity: Ebstein's anomaly 2 in 1,000 Renal: chronic renal insufficiency (after 10-20 years), acute renal failure, polyuria occurs in 50-70% [lithium antagonizes anti-diuretic hormone (ADH)], diabetes insipidus in 10% (treat with amiloride) Drug-drug interactions: increase in lithium: NSAIDs, THELMA inhibitors, angiotensin II antagonists If you are planning on becoming , notify your health care provider so that he/she can best manage your medications. People living with bipolar disorder who wish to become face important decisions. It is important to discuss the risks and benefits of treatment with your doctor and caregivers. [place] has been associated with an increased risk of Ebstein's anomaly, a heart valve defect. Even though data suggest that the risk of Ebstein's anomaly from first trimester use of lithium is very low, an ultrasound of the heart is recommended at 16 to 20 weeks of gestation. [place] levels should be monitored monthly in early and weekly near delivery. Do not stop taking lithium without first speaking to your health care provider. Discontinuing mood stabilizer medications during has been associated with a significant increase in symptom relapse. If an overdose occurs call your doctor or 911. You may need urgent medical care. You may also contact the poison control center at . A specific treatment to reverse the effects of lithium does not exist, but there are treatments to decrease the effects of the medication. Only a doctor can determine if you require treatment. Avoid drinking alcohol or using illegal drugs while you are taking lithium. They may decrease the benefits (e.g., worsen your condition) and increase adverse effects (e.g., sedation) of the medication. Avoid low sodium diets and dehydration because this can increase the risk of lithium toxicity. Avoid over the counter and prescription pain medications that contain nonsteroidal anti-inflammator y medications (NSAIDS) such as ibuprofen (Motrin, Advil) or naproxen (Aleve, Naprosyn) because these medications can increase the risk of toxicity from lithium. Avoid excessive intake of caffeinated beverages, such as coffee, tea, cola or energy drinks, since these may decrease levels of lithium and decrease effectiveness of the medication. Discontinuing caffeine use may increase lithium levels. Consult your health care provider before reducing or stopping caffeine use. What are the possible side effects of lithium? Common side effects Headache Nausea or vomiting Diarrhea Dizziness or drowsiness Changes in appetite Hand tremors Dry mouth Increased thirst Increased urination Thinning of hair or hair loss Acne-like rash Rare/Serious side effects Signs of lithium toxicity include severe nausea and vomiting, severe hand tremors, confusion, vision changes, and unsteadiness while standing or walking. These symptoms need to be addressed immediately with a medical doctor to ensure your lithium level is not dangerously high. In rare cases, lithium may lead to a reversible condition known as diabetes insipidus. If this occurs you would notice a significant increase in thirst and how much fluid you drink and how much you urinate. Talk to your doctor if you notice you are urinating more frequently than usual. Are There Any Risks For Taking [place] For Long Periods Of Time? Hypothyroidism (low levels of thyroid hormone) may occur with long-term lithium use. Rare kidney problems have been associated with long-term use of lithium. The risk increases with high levels of lithium. Your doctor will monitor your kidney function at routine check-ups to ensure this does not occur. Summary of Black Box Warnings [place] Toxicity [place] toxicity is closely related to lithium blood levels and can occur at doses close to therapeutic levels; lithium levels should be monitored closely when starting the medication or if individuals experience side effects of the medication. discuss and educated on all rx Patient educated on all medications including potential benefits, side effects, risks. Educated on proper dosing schedule and importance of compliance educated on all medications, benefits, side effects and risk, and educated on depression, anxiety, and ADHD, mood d/o and educated on compliance of medications, metabolic and movement d/o education appointment's, continue therapy discussion with patient about course of treatment and patient instructions. education on serotonin syndrome Discussed and educated pt regarding benzodiazepines are generally not intended for prolonged use and that use can cause tolerance, dependence, depression, and associated memory issues including dementias (this list is not exhaustive). Benzodiazepine use is generally not recommended concurrently with pain medications and/or other controlled substances educated on all medications, benefits, side effects and risk, and educated on depression, anxiety, and ADHD, mood d/o and educated on compliance of medications, metabolic and movement d/o education appointment is, continue therapy discussion with patient about course of treatment and patient instructions. education on serotonin syndrome SSRI/SNRI side effects discussed including but not limited to, gastric upset, nausea, vomiting, diarrhea and/or constipation, weight changes, sexual side effects including loss of libido, increased suicidal thoughts/behavio rs in children and young adults, and serotonin syndrome. Second generation antipsychotics (SGAs) have metabolic syndrome issues with weight gain, increase in prolactin, increased waist circumference, increased lipids, and increased glucose. Thus routine monitoring of weight, metabolic labs, etc. is indicated. A general rank ordering of antipsychotics that have the greatest to the least risk of metabolic effects is olanzapine, quetiapine, risperidone, ziprasidone, and aripiprazole. However, weight gain can occur with all of these drugs and considerable variability exists among patients receiving the same drug regarding the risk of metabolic effects. Anti-psychotic agents not only increase the risk of metabolic disorder, they also increase the risk of CVA, akathisia, and movement disorders including EPS or tardive dyskinesia (more common with first generation antipsychotics) and more. websites http_s://www.nim h.nih.gov/health /topics/mental-h ealth-medication s http_s://www.nam i.org/About-Ment al-Illness/Treat ments/Mental-Hea lth-Medications http_s://www.nam i.org/About-Ment al-Illness/Menta p-Ucvzns-Osktlcd ons http_s://psychce Arav.[employer]/depres myrna/the-cogniti zj-bjdlkvjl-uo-d epression#treatm ents http__s://www.ni .nih.gov/healt h/topics/mental- health-medicatio ns http__s://www.na mi.org/About-Men prachi-Illness/Tamika millernts/Mental-He alth-Medications http_s://estrellita.ni h.gov/publicatio ns/drugfacts/can nabis-marijuana http_s://www.[employer]/can mdcqj-bps-xjinka zp-rzgisgmdt-ubv d/ Medication Management and Follow-Up - Plan: - Schedule follow-up appointments every 1-3 months to monitor the patient's response to the medication regimen. - Reinforce the importance of avoiding recreational drug use due to potential neurotoxicity and interactions with prescribed medications. 07/20/2025 Suicidal thoughts (ICD-10 - R45.851) Learning About Making a Suicide Safety Plan material was published 1.Depression Cymbalta 60 mg daily in am - helping last month on rx Start [id number] at bedtime for depression and suicide prevention PCP prescribe rx discuss therapy options- pateint will wait at this time 2. Anxiety Cymbalta 60 mg daily in am 3.Poor Sleep hygeine Sleep Hygeine- - KEEP YOUR BEDROOM DARK - GET LOTS OF NATURAL LIGHT IN THE MORNING. - DON'T WORK ON YOUR COMPUTER OR PHONE LATE AT NIGHT. - AVOID NAPS DURING THE DAY. - NO CAFFEINE 3 HOURS OR MORE AFTER WAKE UP TIME. - ONLY USE YOUR BED FOR SLEEPING - GET A RELAXATION ROUTINE BEFORE BED. - IF YOU CAN'T GET TO SLEEP AFTER 15 TO 30 MINUTES GET OUT OF BED AND DO SOMETHING RELAXING. - DON'T DRINK ALCOHOL IN THE EVENING or limit alcohol to 1 drink. 4. Tobacco use Smoking Education Do not smoke. Nicotine and other chemicals in cigarettes and cigars can cause lung damage. Ask your healthcare provider for information if you currently smoke and need help to quit. E-cigarettes or smokeless tobacco still contain nicotine. Talk to your healthcare provider before you use these products. education on decrease to stopping nicotine products and stop smoking hotline given -Quit - Yes [place] Tobacco Quitline Call a Smoking Quitline The [employer] [place] Smoking Quitline, (0-223-00K-QUIT) Smokefree.gov, which connects you with your State's Quitline, (8-698-VCZQDVV) Veterans Smoking Quitline, (7-349-CUGAAYV) 5. Cannabis use- discuss decrease use to stopping Cannabis Use Education Recommend decrease/stop cannabis use as it can negatively impact mood, motivation, anxiety, sleep, focus/concentrat ion/memory (vigilance, elasticity, processing and attention); can also contribute to development of psychosis. Recommend decrease/stop cannabis use as it may be negatively impacting mood, motivation, anxiety, sleep, focus; can also contribute to development of psychosis Cannabis/marijua na information: http_s://estrellita.ni h.gov/publicatio ns/drugfacts/can nabis-marijuana http_s://www.[employer]/can fejho-xgb-mvegty ok-ppftxlana-emg d/ 6/ elevated blood pressure B/P EDUCATION-instru cted to call PCP or urgent care due to elevated blood pressure- patient will see a provider today discuss cardiovascular risk with elevated B/P ON RX educated on healthy b/p 120/80 monitor b/p at home refer to PCP, heart healthy diet and excise limit salt intake limit soda intake and caffiene increase water 7. 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 Suicidal thoughts denies S/HI no plans or intent passive thoughts for years no active thoughts educated on 988/911 safety plan support system go to nearest ER with SI/HI plans or intent increase passive thoughts, active thoughts discuss and educated on [place] 150 mg at bedtime for depression and suicide prevention [place] education [place] use reviewed. Risks include risks of toxicity, arrhythmias, cognitive impairment, changes in muscle coordination, weight gain, thyroid and parathyroid changes, polydipsia and polyuria, alopecia, tremor and teratogenicity ( defects). Recommend avoid in females (use contraception consistently). Routine lab monitoring may be required. Patient consented to treatment. Indications: acute ronald (euphoric ronald), bipolar prophylaxis, bipolar depression treatment or augmentation, unipolar depression as augmentation with antidepressants Average dose = I,500 mg/day, target serum level 0.8 [place] is known to reduce risk of suicide. Mechanism of action: inhibits inositol monophosphatase, interfering with 2nd messengers Nuisance Side Effects: sedation, cognitive difficulties, decreased creativity, dry mouth, tremor, increased appetite, weight gain, polydipsia, polyuria, nausea, diarrhea, acne, alopecia Serious Side Effects: Thyroid: hypothyroidism (5%), goiter (3%) Cardiac: decrease in cardiac conduction leading to sick sinus syndrome, blocks SA node Teratogenicity: Ebstein's anomaly 2 in 1,000 Renal: chronic renal insufficiency (after 10-20 years), acute renal failure, polyuria occurs in 50-70% [lithium antagonizes anti-diuretic hormone (ADH)], diabetes insipidus in 10% (treat with amiloride) Drug-drug interactions: increase in lithium: NSAIDs, THELMA inhibitors, angiotensin II antagonists If you are planning on becoming , notify your health care provider so that he/she can best manage your medications. People living with bipolar disorder who wish to become face important decisions. It is important to discuss the risks and benefits of treatment with your doctor and caregivers. [place] has been associated with an increased risk of Ebstein's anomaly, a heart valve defect. Even though data suggest that the risk of Ebstein's anomaly from first trimester use of lithium is very low, an ultrasound of the heart is recommended at 16 to 20 weeks of gestation. [place] levels should be monitored monthly in early and weekly near delivery. Do not stop taking lithium without first speaking to your health care provider. Discontinuing mood stabilizer medications during has been associated with a significant increase in symptom relapse. If an overdose occurs call your doctor or 911. You may need urgent medical care. You may also contact the poison control center at . A specific treatment to reverse the effects of lithium does not exist, but there are treatments to decrease the effects of the medication. Only a doctor can determine if you require treatment. Avoid drinking alcohol or using illegal drugs while you are taking lithium. They may decrease the benefits (e.g., worsen your condition) and increase adverse effects (e.g., sedation) of the medication. Avoid low sodium diets and dehydration because this can increase the risk of lithium toxicity. Avoid over the counter and prescription pain medications that contain nonsteroidal anti-inflammator y medications (NSAIDS) such as ibuprofen (Motrin, Advil) or naproxen (Aleve, Naprosyn) because these medications can increase the risk of toxicity from lithium. Avoid excessive intake of caffeinated beverages, such as coffee, tea, cola or energy drinks, since these may decrease levels of lithium and decrease effectiveness of the medication. Discontinuing caffeine use may increase lithium levels. Consult your health care provider before reducing or stopping caffeine use. What are the possible side effects of lithium? Common side effects Headache Nausea or vomiting Diarrhea Dizziness or drowsiness Changes in appetite Hand tremors Dry mouth Increased thirst Increased urination Thinning of hair or hair loss Acne-like rash Rare/Serious side effects Signs of lithium toxicity include severe nausea and vomiting, severe hand tremors, confusion, vision changes, and unsteadiness while standing or walking. These symptoms need to be addressed immediately with a medical doctor to ensure your lithium level is not dangerously high. In rare cases, lithium may lead to a reversible condition known as diabetes insipidus. If this occurs you would notice a significant increase in thirst and how much fluid you drink and how much you urinate. Talk to your doctor if you notice you are urinating more frequently than usual. Are There Any Risks For Taking [place] For Long Periods Of Time? Hypothyroidism (low levels of thyroid hormone) may occur with long-term lithium use. Rare kidney problems have been associated with long-term use of lithium. The risk increases with high levels of lithium. Your doctor will monitor your kidney function at routine check-ups to ensure this does not occur. Summary of Black Box Warnings [place] Toxicity [place] toxicity is closely related to lithium blood levels and can occur at doses close to therapeutic levels; lithium levels should be monitored closely when starting the medication or if individuals experience side effects of the medication. discuss and educated on all rx Patient educated on all medications including potential benefits, side effects, risks. Educated on proper dosing schedule and importance of compliance educated on all medications, benefits, side effects and risk, and educated on depression, anxiety, and ADHD, mood d/o and educated on compliance of medications, metabolic and movement d/o education appointment's, continue therapy discussion with patient about course of treatment and patient instructions. education on serotonin syndrome Discussed and educated pt regarding benzodiazepines are generally not intended for prolonged use and that use can cause tolerance, dependence, depression, and associated memory issues including dementias (this list is not exhaustive). Benzodiazepine use is generally not recommended concurrently with pain medications and/or other controlled substances educated on all medications, benefits, side effects and risk, and educated on depression, anxiety, and ADHD, mood d/o and educated on compliance of medications, metabolic and movement d/o education appointment is, continue therapy discussion with patient about course of treatment and patient instructions. education on serotonin syndrome SSRI/SNRI side effects discussed including but not limited to, gastric upset, nausea, vomiting, diarrhea and/or constipation, weight changes, sexual side effects including loss of libido, increased suicidal thoughts/behavio rs in children and young adults, and serotonin syndrome. Second generation antipsychotics (SGAs) have metabolic syndrome issues with weight gain, increase in prolactin, increased waist circumference, increased lipids, and increased glucose. Thus routine monitoring of weight, metabolic labs, etc. is indicated. A general rank ordering of antipsychotics that have the greatest to the least risk of metabolic effects is olanzapine, quetiapine, risperidone, ziprasidone, and aripiprazole. However, weight gain can occur with all of these drugs and considerable variability exists among patients receiving the same drug regarding the risk of metabolic effects. Anti-psychotic agents not only increase the risk of metabolic disorder, they also increase the risk of CVA, akathisia, and movement disorders including EPS or tardive dyskinesia (more common with first generation antipsychotics) and more. websites http_s://www.[facility] h.nih.gov/health /topics/mental-h ealth-medication s http_s://www.nam i.org/About-Ment al-Illness/Treat ments/Mental-Hea lth-Medications http_s://www.nam i.org/About-Ment al-Illness/Menta c-Dsbvrd-Gocgyan ons http_s://psychce Arav.com/deprvika myrna/the-cogniti da-kzmmblhb-yj-d epression#treatm ents http__s://www.[facility].nih.gov/healt h/topics/mental- health-medicatio ns http__s://www.na mi.org/About-Men prachi-Illness/Tamika tments/Mental-He alth-Medications http_s://estrellita.ni h.gov/publicatio ns/drugfacts/can nabis-marijuana http_s://www.[employer]/can gcleb-vel-hnwswn ic-kmozddgeq-mrd d/ Medication Management and Follow-Up - Plan: - Schedule follow-up appointments every 1-3 months to monitor the patient's response to the medication regimen. - Reinforce the importance of avoiding recreational drug use due to potential neurotoxicity and interactions with prescribed medications. 08/09/2025 Suicidal thoughts (ICD-10 - R45.851) Learning About Making a Suicide Safety Plan material was published 1.Depression Cymbalta 60 mg daily in am - helping on rx - PCP fills [id number] at bedtime for depression and suicide prevention - helping discuss therapy options- pateint will wait at this time 2. Anxiety Cymbalta 60 mg daily in am- PCP fills 3.Poor Sleep hygeine Sleep Hygeine- - KEEP YOUR BEDROOM DARK - GET LOTS OF NATURAL LIGHT IN THE MORNING. - DON'T WORK ON YOUR COMPUTER OR PHONE LATE AT NIGHT. - AVOID NAPS DURING THE DAY. - NO CAFFEINE 3 HOURS OR MORE AFTER WAKE UP TIME. - ONLY USE YOUR BED FOR SLEEPING - GET A RELAXATION ROUTINE BEFORE BED. - IF YOU CAN'T GET TO SLEEP AFTER 15 TO 30 MINUTES GET OUT OF BED AND DO SOMETHING RELAXING. - DON'T DRINK ALCOHOL IN THE EVENING or limit alcohol to 1 drink. 4. Tobacco use Smoking Education Do not smoke. Nicotine and other chemicals in cigarettes and cigars can cause lung damage. Ask your healthcare provider for information if you currently smoke and need help to quit. E-cigarettes or smokeless tobacco still contain nicotine. Talk to your healthcare provider before you use these products. education on decrease to stopping nicotine products and stop smoking hotline given Quit - Yes [place] Tobacco Quitline Call a Smoking Quitline The [employer] [place] Smoking Quitline, (7-354-94K-QUIT) Smokefree.gov, which connects you with your State's Quitline, (9-252-LNUFNHC) [facility] Smoking Quitline, (2-093-WCNZDQV) 5. Cannabis use- discuss decrease use to stopping Cannabis Use Education Recommend decrease/stop cannabis use as it can negatively impact mood, motivation, anxiety, sleep, focus/concentrat ion/memory (vigilance, elasticity, processing and attention); can also contribute to development of psychosis. Recommend decrease/stop cannabis use as it may be negatively impacting mood, motivation, anxiety, sleep, focus; can also contribute to development of psychosis Cannabis/marijua na information: http_s://estrellita.ni h.gov/publicatio ns/drugfacts/can nabis-marijuana http_s://www.[employer]/can lsuxw-gvi-rminhw wz-klyiwmdlg-ruy / elevated blood pressure B/P EDUCATION-instru cted to call PCP or urgent care due to elevated blood pressure- patient will see a provider Wednesday on RX B/P discuss cardiovascular risk with elevated B/P ON RX educated on healthy b/p 120/80 monitor b/p at home refer to PCP, heart healthy diet and excise limit salt intake limit soda intake and caffiene increase water 7. 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 Suicidal thoughts denies S/HI no plans or intent passive thoughts for years no active thoughts educated on 1 safety plan support system go to nearest ER with SI/HI plans or intent increase passive thoughts, active thoughts discuss and educated on [place] 150 mg at bedtime for depression and suicide prevention [place] education [place] use reviewed. Risks include risks of toxicity, arrhythmias, cognitive impairment, changes in muscle coordination, weight gain, thyroid and parathyroid changes, polydipsia and polyuria, alopecia, tremor and teratogenicity ( defects). Recommend avoid in females (use contraception consistently). Routine lab monitoring may be required. Patient consented to treatment. Indications: acute ronald (euphoric ronald), bipolar prophylaxis, bipolar depression treatment or augmentation, unipolar depression as augmentation with antidepressants Average dose = I,500 mg/day, target serum level 0.8 [place] is known to reduce risk of suicide. Mechanism of action: inhibits inositol monophosphatase, interfering with 2nd messengers Nuisance Side Effects: sedation, cognitive difficulties, decreased creativity, dry mouth, tremor, increased appetite, weight gain, polydipsia, polyuria, nausea, diarrhea, acne, alopecia Serious Side Effects: Thyroid: hypothyroidism (5%), goiter (3%) Cardiac: decrease in cardiac conduction leading to sick sinus syndrome, blocks SA node Teratogenicity: Ebstein's anomaly 2 in 1,000 Renal: chronic renal insufficiency (after 10-20 years), acute renal failure, polyuria occurs in 50-70% [lithium antagonizes anti-diuretic hormone (ADH)], diabetes insipidus in 10% (treat with amiloride) Drug-drug interactions: increase in lithium: NSAIDs, THELMA inhibitors, angiotensin II antagonists If you are planning on becoming , notify your health care provider so that he/she can best manage your medications. People living with bipolar disorder who wish to become face important decisions. It is important to discuss the risks and benefits of treatment with your doctor and caregivers. [place] has been associated with an increased risk of Ebstein's anomaly, a heart valve defect. Even though data suggest that the risk of Ebstein's anomaly from first trimester use of lithium is very low, an ultrasound of the heart is recommended at 16 to 20 weeks of gestation. [place] levels should be monitored monthly in early and weekly near delivery. Do not stop taking lithium without first speaking to your health care provider. Discontinuing mood stabilizer medications during has been associated with a significant increase in symptom relapse. If an overdose occurs call your doctor or 911. You may need urgent medical care. You may also contact the poison control center at . A specific treatment to reverse the effects of lithium does not exist, but there are treatments to decrease the effects of the medication. Only a doctor can determine if you require treatment. Avoid drinking alcohol or using illegal drugs while you are taking lithium. They may decrease the benefits (e.g., worsen your condition) and increase adverse effects (e.g., sedation) of the medication. Avoid low sodium diets and dehydration because this can increase the risk of lithium toxicity. Avoid over the counter and prescription pain medications that contain nonsteroidal anti-inflammator y medications (NSAIDS) such as ibuprofen (Motrin, Advil) or naproxen (Aleve, Naprosyn) because these medications can increase the risk of toxicity from lithium. Avoid excessive intake of caffeinated beverages, such as coffee, tea, cola or energy drinks, since these may decrease levels of lithium and decrease effectiveness of the medication. Discontinuing caffeine use may increase lithium levels. Consult your health care provider before reducing or stopping caffeine use. What are the possible side effects of lithium? Common side effects Headache Nausea or vomiting Diarrhea Dizziness or drowsiness Changes in appetite Hand tremors Dry mouth Increased thirst Increased urination Thinning of hair or hair loss Acne-like rash Rare/Serious side effects Signs of lithium toxicity include severe nausea and vomiting, severe hand tremors, confusion, vision changes, and unsteadiness while standing or walking. These symptoms need to be addressed immediately with a medical doctor to ensure your lithium level is not dangerously high. In rare cases, lithium may lead to a reversible condition known as diabetes insipidus. If this occurs you would notice a significant increase in thirst and how much fluid you drink and how much you urinate. Talk to your doctor if you notice you are urinating more frequently than usual. Are There Any Risks For Taking [place] For Long Periods Of Time? Hypothyroidism (low levels of thyroid hormone) may occur with long-term lithium use. Rare kidney problems have been associated with long-term use of lithium. The risk increases with high levels of lithium. Your doctor will monitor your kidney function at routine check-ups to ensure this does not occur. Summary of Black Box Warnings [place] Toxicity [place] toxicity is closely related to lithium blood levels and can occur at doses close to therapeutic levels; lithium levels should be monitored closely when starting the medication or if individuals experience side effects of the medication. discuss and educated on all rx Patient educated on all medications including potential benefits, side effects, risks. Educated on proper dosing schedule and importance of compliance educated on all medications, benefits, side effects and risk, and educated on depression, anxiety, and ADHD, mood d/o and educated on compliance of medications, metabolic and movement d/o education appointment's, continue therapy discussion with patient about course of treatment and patient instructions. education on serotonin syndrome Discussed and educated pt regarding benzodiazepines are generally not intended for prolonged use and that use can cause tolerance, dependence, depression, and associated memory issues including dementias (this list is not exhaustive). Benzodiazepine use is generally not recommended concurrently with pain medications and/or other controlled substances educated on all medications, benefits, side effects and risk, and educated on depression, anxiety, and ADHD, mood d/o and educated on compliance of medications, metabolic and movement d/o education appointment is, continue therapy discussion with patient about course of treatment and patient instructions. education on serotonin syndrome SSRI/SNRI side effects discussed including but not limited to, gastric upset, nausea, vomiting, diarrhea and/or constipation, weight changes, sexual side effects including loss of libido, increased suicidal thoughts/behavio rs in children and young adults, and serotonin syndrome. Second generation antipsychotics (SGAs) have metabolic syndrome issues with weight gain, increase in prolactin, increased waist circumference, increased lipids, and increased glucose. Thus routine monitoring of weight, metabolic labs, etc. is indicated. A general rank ordering of antipsychotics that have the greatest to the least risk of metabolic effects is olanzapine, quetiapine, risperidone, ziprasidone, and aripiprazole. However, weight gain can occur with all of these drugs and considerable variability exists among patients receiving the same drug regarding the risk of metabolic effects. Anti-psychotic agents not only increase the risk of metabolic disorder, they also increase the risk of CVA, akathisia, and movement disorders including EPS or tardive dyskinesia (more common with first generation antipsychotics) and more. websites http_s://www.nim h.nih.gov/health /topics/mental-h ealth-medication s http_s://www.nam i.org/About-Ment al-Illness/Treat ments/Mental-Hea lth-Medications http_s://www.nam i.org/About-Ment al-Illness/Menta g-Zdxfmd-Oyrnscb ons http_s://psychce Arav.com/depres myrna/the-cogniti eq-cyhiyter-hj-d epression#treatm ents http__s://www.ni .nih.gov/healt h/topics/mental- health-medicatio ns http__s://www.na mi.org/About-Men prachi-Illness/Tamika tments/Mental-He alth-Medications http_s://estrellita.ni h.gov/publicatio ns/drugfacts/can nabis-marijuana http_s://www.[employer]/can oueud-rvc-zleidx cm-zrulupjiw-ryf d/ Medication Management and Follow-Up - Plan: - Schedule follow-up appointments every 1-3 months to monitor the patient's response to the medication regimen. - Reinforce the importance of avoiding recreational drug use due to potential neurotoxicity and interactions with prescribed medications. 06/22/2025 Elevated blood pressure reading (ICD-10 - R03.0) 1.Depression Cymbalta 60 mg daily in am - helping last month on rx PCP prescribe rx discuss therapy options- pateint will wait at this time 2. Anxiety Cymbalta 60 mg daily in am 3.Poor Sleep hygeine Sleep Hygeine- - KEEP YOUR BEDROOM DARK - GET LOTS OF NATURAL LIGHT IN THE MORNING. - DON'T WORK ON YOUR COMPUTER OR PHONE LATE AT NIGHT. - AVOID NAPS DURING THE DAY. - NO CAFFEINE 3 HOURS OR MORE AFTER WAKE UP TIME. - ONLY USE YOUR BED FOR SLEEPING - GET A RELAXATION ROUTINE BEFORE BED. - IF YOU CAN'T GET TO SLEEP AFTER 15 TO 30 MINUTES GET OUT OF BED AND DO SOMETHING RELAXING. - DON'T DRINK ALCOHOL IN THE EVENING or limit alcohol to 1 drink. 4. Tobacco use Smoking Education Do not smoke. Nicotine and other chemicals in cigarettes and cigars can cause lung damage. Ask your healthcare provider for information if you currently smoke and need help to quit. E-cigarettes or smokeless tobacco still contain nicotine. Talk to your healthcare provider before you use these products. education on decrease to stopping nicotine products and stop smoking hotline given Quit - Yes [place] Tobacco Quitline Call a Smoking Quitline The [employer] [place] Smoking Quitline, (3-252-71P-QUIT) Smokefree.gov, which connects you with your State's Quitline, (7-244-XSJOUII) [facility] Smoking Quitline, (9-024-PFSJPYX) 5. Cannabis use Cannabis Use Education Recommend decrease/stop cannabis use as it can negatively impact mood, motivation, anxiety, sleep, focus/concentrat ion/memory (vigilance, elasticity, processing and attention); can also contribute to development of psychosis. Recommend decrease/stop cannabis use as it may be negatively impacting mood, motivation, anxiety, sleep, focus; can also contribute to development of psychosis Cannabis/marijua na information: http_s://estrellita.ni h.gov/publicatio ns/drugfacts/can nabis-marijuana http_s://www.[employer]/can ypyds-onw-uittvp rb-sdobhtoby-hnt d/ 6/ elevated blood pressure B/P EDUCATION educated on healthy b/p 120/80 monitor b/p at home refer to PCP, heart healthy diet and excise limit salt intake limit soda intake and caffiene increase water 7. 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 Educated on proper dosing schedule and importance of compliance educated on all medications, benefits, side effects and risk, and educated on depression, anxiety, and ADHD, mood d/o and educated on compliance of medications, metabolic and movement d/o education appointment's, continue therapy discussion with patient about course of treatment and patient instructions. education on serotonin syndrome Discussed and educated pt regarding benzodiazepines are generally not intended for prolonged use and that use can cause tolerance, dependence, depression, and associated memory issues including dementias (this list is not exhaustive). Benzodiazepine use is generally not recommended concurrently with pain medications and/or other controlled substances educated on all medications, benefits, side effects and risk, and educated on depression, anxiety, and ADHD, mood d/o and educated on compliance of medications, metabolic and movement d/o education appointment is, continue therapy discussion with patient about course of treatment and patient instructions. education on serotonin syndrome SSRI/SNRI side effects discussed including but not limited to, gastric upset, nausea, vomiting, diarrhea and/or constipation, weight changes, sexual side effects including loss of libido, increased suicidal thoughts/behavio rs in children and young adults, and serotonin syndrome. Second generation antipsychotics (SGAs) have metabolic syndrome issues with weight gain, increase in prolactin, increased waist circumference, increased lipids, and increased glucose. Thus routine monitoring of weight, metabolic labs, etc. is indicated. A general rank ordering of antipsychotics that have the greatest to the least risk of metabolic effects is olanzapine, quetiapine, risperidone, ziprasidone, and aripiprazole. However, weight gain can occur with all of these drugs and considerable variability exists among patients receiving the same drug regarding the risk of metabolic effects. Anti-psychotic agents not only increase the risk of metabolic disorder, they also increase the risk of CVA, akathisia, and movement disorders including EPS or tardive dyskinesia (more common with first generation antipsychotics) and more. websites http_s://www.[facility].nih.gov/health /topics/mental-h ealth-medication s http_s://www.nam i.[employer]/About-Ment al-Illness/Treat ments/Mental-Hea lth-Medications http_s://www.nam i.org/About-Ment al-Illness/Menta f-Aepyxj-Vkdmgju ons http_s://psychYouWeb/depres myrna/the-cogniti xd-mkjfhodu-ns-d epression#treatm ents http__s://www.ni .nih.gov/healt h/topics/mental- health-medicatio ns http__s://www.na ct.org/About-Men prachi-Illness/Tamika tments/Mental-He alth-Medications http_s://estrellita.ni h.gov/publicatio ns/drugfacts/can nabis-marijuana http_s://www.[employer]/can amoka-ljs-dxbrak yb-ewzipdhiu-cus d/ Medication Management and Follow-Up - Plan: - Schedule follow-up appointments every 1-3 months to monitor the patient's response to the medication regimen. - Reinforce the importance of avoiding recreational drug use due to potential neurotoxicity and interactions with prescribed medications. 05/25/2025 ADEOLA (generalized anxiety disorder) (ICD-10 - F41.1) 1.Depression Cymbalta 60 mg daily in am - helping last month on rx PCP prescribe rx discuss therapy options- pateint will wait at this time 2. Anxiety Cymbalta 60 mg daily in am 3.Poor Sleep hygeine Sleep Hygeine- - KEEP YOUR BEDROOM DARK - GET LOTS OF NATURAL LIGHT IN THE MORNING. - DON'T WORK ON YOUR COMPUTER OR PHONE LATE AT NIGHT. - AVOID NAPS DURING THE DAY. - NO CAFFEINE 3 HOURS OR MORE AFTER WAKE UP TIME. - ONLY USE YOUR BED FOR SLEEPING - GET A RELAXATION ROUTINE BEFORE BED. - IF YOU CAN'T GET TO SLEEP AFTER 15 TO 30 MINUTES GET OUT OF BED AND DO SOMETHING RELAXING. - DON'T DRINK ALCOHOL IN THE EVENING or limit alcohol to 1 drink. 4. Tobacco use Smoking Education Do not smoke. Nicotine and other chemicals in cigarettes and cigars can cause lung damage. Ask your healthcare provider for information if you currently smoke and need help to quit. E-cigarettes or smokeless tobacco still contain nicotine. Talk to your healthcare provider before you use these products. education on decrease to stopping nicotine products and stop smoking hotline given 2Quit - Yes [place] Tobacco Quitline Call a Smoking Quitline The [employer] [place] Smoking Quitline, (4-507-16X-QUIT) Smokefree.gov, which connects you with your [facility]'s Quitline, (8-809-FXHDHWM) Veterans Smoking Quitline, (1-631-IKYCCFV) 5. Cannabis use Cannabis Use Education Recommend decrease/stop cannabis use as it can negatively impact mood, motivation, anxiety, sleep, focus/concentrat ion/memory (vigilance, elasticity, processing and attention); can also contribute to development of psychosis. Recommend decrease/stop cannabis use as it may be negatively impacting mood, motivation, anxiety, sleep, focus; can also contribute to development of psychosis Cannabis/marijua na information: http_s://estrellita.ni h.gov/publicatio ns/drugfacts/can nabis-marijuana http_s://www.[employer]/can qcrlk-blu-pjaqai dg-nxuhiatgy-pyc d/ 6/ elevated blood pressure B/P EDUCATION educated on healthy b/p 120/80 monitor b/p at home refer to PCP, heart healthy diet and excise limit salt intake limit soda intake and caffiene increase water 7. ADD Schedule Creyos testing educated on cardiovascular health and HTN discuss non-stimualtes no control subtance prescribed by RADHA r/t cannabis use and HTN Patient educated on all medications including potential benefits, side effects, risks. Educated on proper dosing schedule and importance of compliance educated on all medications, benefits, side effects and risk, and educated on depression, anxiety, and ADHD, mood d/o and educated on compliance of medications, metabolic and movement d/o education appointment's, continue therapy discussion with patient about course of treatment and patient instructions. education on serotonin syndrome Discussed and educated pt regarding benzodiazepines are generally not intended for prolonged use and that use can cause tolerance, dependence, depression, and associated memory issues including dementias (this list is not exhaustive). Benzodiazepine use is generally not recommended concurrently with pain medications and/or other controlled substances educated on all medications, benefits, side effects and risk, and educated on depression, anxiety, and ADHD, mood d/o and educated on compliance of medications, metabolic and movement d/o education appointment is, continue therapy discussion with patient about course of treatment and patient instructions. education on serotonin syndrome SSRI/SNRI side effects discussed including but not limited to, gastric upset, nausea, vomiting, diarrhea and/or constipation, weight changes, sexual side effects including loss of libido, increased suicidal thoughts/behavio rs in children and young adults, and serotonin syndrome. Second generation antipsychotics (SGAs) have metabolic syndrome issues with weight gain, increase in prolactin, increased waist circumference, increased lipids, and increased glucose. Thus routine monitoring of weight, metabolic labs, etc. is indicated. A general rank ordering of antipsychotics that have the greatest to the least risk of metabolic effects is olanzapine, quetiapine, risperidone, ziprasidone, and aripiprazole. However, weight gain can occur with all of these drugs and considerable variability exists among patients receiving the same drug regarding the risk of metabolic effects. Anti-psychotic agents not only increase the risk of metabolic disorder, they also increase the risk of CVA, akathisia, and movement disorders including EPS or tardive dyskinesia (more common with first generation antipsychotics) and more. websites http_s://www.nim h.nih.gov/health /topics/mental-h ealth-medication s http_s://www.nam i.org/About-Ment al-Illness/Treat ments/Mental-[facility]-Medications http_s://www.nam i.org/About-Ment al-Illness/Menta d-Bebdvx-Hhacwpt ons http_s://[employer]/shivamvika norris/the-cogniti kk-ppumzbli-lc-d epression#treatm ents http__s://www.ni mh.nih.gov/healt h/topics/mental- health-medicatio ns http__s://www.na mi.org/About-Men prachi-Illness/Tamika tments/Mental-He alth-Medications http_s://estrelilta.ni h.gov/publicatio ns/drugfacts/can nabis-marijuana http_s://www.[employer]/can fumpt-zvj-gktxcy bs-ctfmwijdf-kcv d/ Medication Management and Follow-Up - Plan: - Schedule follow-up appointments every 1-3 months to monitor the patient's response to the medication regimen. - Reinforce the importance of avoiding recreational drug use due to potential neurotoxicity and interactions with prescribed medications. 06/22/2025 ADEOLA (generalized anxiety disorder) (ICD-10 - F41.1) 1.Depression Cymbalta 60 mg daily in am - helping last month on rx PCP prescribe rx discuss therapy options- pateint will wait at this time 2. Anxiety Cymbalta 60 mg daily in am 3.Poor Sleep hygeine Sleep Hygeine- - KEEP YOUR BEDROOM DARK - GET LOTS OF NATURAL LIGHT IN THE MORNING. - DON'T WORK ON YOUR COMPUTER OR PHONE LATE AT NIGHT. - AVOID NAPS DURING THE DAY. - NO CAFFEINE 3 HOURS OR MORE AFTER WAKE UP TIME. - ONLY USE YOUR BED FOR SLEEPING - GET A RELAXATION ROUTINE BEFORE BED. - IF YOU CAN'T GET TO SLEEP AFTER 15 TO 30 MINUTES GET OUT OF BED AND DO SOMETHING RELAXING. - DON'T DRINK ALCOHOL IN THE EVENING or limit alcohol to 1 drink. 4. Tobacco use Smoking Education Do not smoke. Nicotine and other chemicals in cigarettes and cigars can cause lung damage. Ask your healthcare provider for information if you currently smoke and need help to quit. E-cigarettes or smokeless tobacco still contain nicotine. Talk to your healthcare provider before you use these products. education on decrease to stopping nicotine products and stop smoking hotline given -Quit - Yes [place] Tobacco Quitline Call a Smoking Quitline The [employer] [place] Smoking Quitline, (2-263-80X-QUIT) Smokefree.gov, which connects you with your State's Quitline, (7-024-WAYNHHU) Veterans Smoking Quitline, (2-310-URJNMHQ) 5. Cannabis use Cannabis Use Education Recommend decrease/stop cannabis use as it can negatively impact mood, motivation, anxiety, sleep, focus/concentrat ion/memory (vigilance, elasticity, processing and attention); can also contribute to development of psychosis. Recommend decrease/stop cannabis use as it may be negatively impacting mood, motivation, anxiety, sleep, focus; can also contribute to development of psychosis Cannabis/marijua na information: http_s://estrellita.ni h.gov/publicatio ns/drugfacts/can nabis-marijuana http_s://www.[employer]/can zipee-irm-eaakoa fs-vcvtlnbvr-mkw d/ 6/ elevated blood pressure B/P EDUCATION educated on healthy b/p 120/80 monitor b/p at home refer to PCP, heart healthy diet and excise limit salt intake limit soda intake and caffiene increase water 7. 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 Educated on proper dosing schedule and importance of compliance educated on all medications, benefits, side effects and risk, and educated on depression, anxiety, and ADHD, mood d/o and educated on compliance of medications, metabolic and movement d/o education appointment's, continue therapy discussion with patient about course of treatment and patient instructions. education on serotonin syndrome Discussed and educated pt regarding benzodiazepines are generally not intended for prolonged use and that use can cause tolerance, dependence, depression, and associated memory issues including dementias (this list is not exhaustive). Benzodiazepine use is generally not recommended concurrently with pain medications and/or other controlled substances educated on all medications, benefits, side effects and risk, and educated on depression, anxiety, and ADHD, mood d/o and educated on compliance of medications, metabolic and movement d/o education appointment is, continue therapy discussion with patient about course of treatment and patient instructions. education on serotonin syndrome SSRI/SNRI side effects discussed including but not limited to, gastric upset, nausea, vomiting, diarrhea and/or constipation, weight changes, sexual side effects including loss of libido, increased suicidal thoughts/behavio rs in children and young adults, and serotonin syndrome. Second generation antipsychotics (SGAs) have metabolic syndrome issues with weight gain, increase in prolactin, increased waist circumference, increased lipids, and increased glucose. Thus routine monitoring of weight, metabolic labs, etc. is indicated. A general rank ordering of antipsychotics that have the greatest to the least risk of metabolic effects is olanzapine, quetiapine, risperidone, ziprasidone, and aripiprazole. However, weight gain can occur with all of these drugs and considerable variability exists among patients receiving the same drug regarding the risk of metabolic effects. Anti-psychotic agents not only increase the risk of metabolic disorder, they also increase the risk of CVA, akathisia, and movement disorders including EPS or tardive dyskinesia (more common with first generation antipsychotics) and more. websites http_s://www.nim h.nih.gov/health /topics/mental-h ealth-medication s http_s://www.nam i.org/About-Ment al-Illness/Treat ments/Mental-Hea lth-Medications http_s://www.nam i.org/About-Ment al-Illness/Menta j-Ajbqzm-Xgghznh ons http_s://psychce Arav.com/depres myrna/the-cogniti ld-afsqywar-ow-d epression#treatm ents http__s://www.ni .nih.gov/healt h/topics/mental- health-medicatio ns http__s://www.na mi.org/About-Men prachi-Illness/Tamika tments/Mental-He alth-Medications http_s://estrellita. h.gov/publicatio ns/drugfacts/can nabis-marijuana http_s://www.[employer]/can cwkpt-weu-svpyfs il-aqpjorhil-zso d/ Medication Management and Follow-Up - Plan: - Schedule follow-up appointments every 1-3 months to monitor the patient's response to the medication regimen. - Reinforce the importance of avoiding recreational drug use due to potential neurotoxicity and interactions with prescribed medications. 05/25/2025 Poor sleep hygiene (ICD-10 - Z72.821) 1.Depression Cymbalta 60 mg daily in am - helping last month on rx PCP prescribe rx discuss therapy options- pateint will wait at this time 2. Anxiety Cymbalta 60 mg daily in am 3.Poor Sleep hygeine Sleep Hygeine- - KEEP YOUR BEDROOM DARK - GET LOTS OF NATURAL LIGHT IN THE MORNING. - DON'T WORK ON YOUR COMPUTER OR PHONE LATE AT NIGHT. - AVOID NAPS DURING THE DAY. - NO CAFFEINE 3 HOURS OR MORE AFTER WAKE UP TIME. - ONLY USE YOUR BED FOR SLEEPING - GET A RELAXATION ROUTINE BEFORE BED. - IF YOU CAN'T GET TO SLEEP AFTER 15 TO 30 MINUTES GET OUT OF BED AND DO SOMETHING RELAXING. - DON'T DRINK ALCOHOL IN THE EVENING or limit alcohol to 1 drink. 4. Tobacco use Smoking Education Do not smoke. Nicotine and other chemicals in cigarettes and cigars can cause lung damage. Ask your healthcare provider for information if you currently smoke and need help to quit. E-cigarettes or smokeless tobacco still contain nicotine. Talk to your healthcare provider before you use these products. education on decrease to stopping nicotine products and stop smoking hotline given Quit - Yes [place] Tobacco Quitline Call a Smoking Quitline The [employer] [place] Smoking Quitline, (5-142-35G-QUIT) Smokefree.gov, which connects you with your State's Quitline, (8-736-HYZZDKI) Veterans Smoking Quitline, (7-428-TXNQXKY) 5. Cannabis use Cannabis Use Education Recommend decrease/stop cannabis use as it can negatively impact mood, motivation, anxiety, sleep, focus/concentrat ion/memory (vigilance, elasticity, processing and attention); can also contribute to development of psychosis. Recommend decrease/stop cannabis use as it may be negatively impacting mood, motivation, anxiety, sleep, focus; can also contribute to development of psychosis Cannabis/marijua na information: http_s://estrellita.ni h.gov/publicatio ns/drugfacts/can nabis-marijuana http_s://www.[employer]/can bfoqd-xgw-afvyjv ml-nslstikyd-phs d/ 6/ elevated blood pressure B/P EDUCATION educated on healthy b/p 120/80 monitor b/p at home refer to PCP, heart healthy diet and excise limit salt intake limit soda intake and caffiene increase water 7. ADD Schedule Creyos testing educated on cardiovascular health and HTN discuss non-stimualtes no control subtance prescribed by RADHA r/t cannabis use and HTN Patient educated on all medications including potential benefits, side effects, risks. Educated on proper dosing schedule and importance of compliance educated on all medications, benefits, side effects and risk, and educated on depression, anxiety, and ADHD, mood d/o and educated on compliance of medications, metabolic and movement d/o education appointment's, continue therapy discussion with patient about course of treatment and patient instructions. education on serotonin syndrome Discussed and educated pt regarding benzodiazepines are generally not intended for prolonged use and that use can cause tolerance, dependence, depression, and associated memory issues including dementias (this list is not exhaustive). Benzodiazepine use is generally not recommended concurrently with pain medications and/or other controlled substances educated on all medications, benefits, side effects and risk, and educated on depression, anxiety, and ADHD, mood d/o and educated on compliance of medications, metabolic and movement d/o education appointment is, continue therapy discussion with patient about course of treatment and patient instructions. education on serotonin syndrome SSRI/SNRI side effects discussed including but not limited to, gastric upset, nausea, vomiting, diarrhea and/or constipation, weight changes, sexual side effects including loss of libido, increased suicidal thoughts/behavio rs in children and young adults, and serotonin syndrome. Second generation antipsychotics (SGAs) have metabolic syndrome issues with weight gain, increase in prolactin, increased waist circumference, increased lipids, and increased glucose. Thus routine monitoring of weight, metabolic labs, etc. is indicated. A general rank ordering of antipsychotics that have the greatest to the least risk of metabolic effects is olanzapine, quetiapine, risperidone, ziprasidone, and aripiprazole. However, weight gain can occur with all of these drugs and considerable variability exists among patients receiving the same drug regarding the risk of metabolic effects. Anti-psychotic agents not only increase the risk of metabolic disorder, they also increase the risk of CVA, akathisia, and movement disorders including EPS or tardive dyskinesia (more common with first generation antipsychotics) and more. websites http_s://www.[facility].nih.gov/health /topics/mental-h ealth-medication s http_s://www.nam i.org/About-Ment al-Illness/Treat ments/Mental-Hea lth-Medications http_s://www.nam i.org/About-Ment al-Illness/Menta q-Umykeb-Wgdgruz ons http_s://[employer]/deprvika myrna/the-cogniti dd-nlcjoxho-jt-d epression#treatm ents http__s://www.[facility].nih.gov/healt h/topics/mental- health-medicatio ns http__s://www.na mi.org/About-Men prachi-Illness/Tamika tments/Mental-He alth-Medications http_s://estrellita. h.gov/publicatio ns/drugfacts/can nabis-marijuana http_s://www.[employer]/can tzdle-agm-snuaov fg-aqeauybdd-umt d/ Medication Management and Follow-Up - Plan: - Schedule follow-up appointments every 1-3 months to monitor the patient's response to the medication regimen. - Reinforce the importance of avoiding recreational drug use due to potential neurotoxicity and interactions with prescribed medications. 08/09/2025 Benign essential HTN (ICD-10 - I10) 1.Depression Cymbalta 60 mg daily in am - helping on rx - PCP fills [id number] at bedtime for depression and suicide prevention - helping discuss therapy options- pateint will wait at this time 2. Anxiety Cymbalta 60 mg daily in am- PCP fills 3.Poor Sleep hygeine Sleep Hygeine- - KEEP YOUR BEDROOM DARK - GET LOTS OF NATURAL LIGHT IN THE MORNING. - DON'T WORK ON YOUR COMPUTER OR PHONE LATE AT NIGHT. - AVOID NAPS DURING THE DAY. - NO CAFFEINE 3 HOURS OR MORE AFTER WAKE UP TIME. - ONLY USE YOUR BED FOR SLEEPING - GET A RELAXATION ROUTINE BEFORE BED. - IF YOU CAN'T GET TO SLEEP AFTER 15 TO 30 MINUTES GET OUT OF BED AND DO SOMETHING RELAXING. - DON'T DRINK ALCOHOL IN THE EVENING or limit alcohol to 1 drink. 4. Tobacco use Smoking Education Do not smoke. Nicotine and other chemicals in cigarettes and cigars can cause lung damage. Ask your healthcare provider for information if you currently smoke and need help to quit. E-cigarettes or smokeless tobacco still contain nicotine. Talk to your healthcare provider before you use these products. education on decrease to stopping nicotine products and stop smoking hotline given Quit - Yes [place] Tobacco Quitline Call a Smoking Quitline The [employer] [place] Smoking Quitline, (9-070-78T-QUIT) Smokefree.gov, which connects you with your [facility]'s Quitline, (4-998-MHQHBPT) [facility] Smoking Quitline, (0-261-AVHVIFZ) 5. Cannabis use- discuss decrease use to stopping Cannabis Use Education Recommend decrease/stop cannabis use as it can negatively impact mood, motivation, anxiety, sleep, focus/concentrat ion/memory (vigilance, elasticity, processing and attention); can also contribute to development of psychosis. Recommend decrease/stop cannabis use as it may be negatively impacting mood, motivation, anxiety, sleep, focus; can also contribute to development of psychosis Cannabis/marijua na information: http_s://estrellita.ni h.gov/publicatio ns/drugfacts/can nabis-marijuana http_s://www.[employer]/can nfozi-xji-mszkze dc-hwpudowxr-yim d/ 6/ elevated blood pressure B/P EDUCATION-instru cted to call PCP or urgent care due to elevated blood pressure- patient will see a provider Wednesday on RX B/P discuss cardiovascular risk with elevated B/P ON RX educated on healthy b/p 120/80 monitor b/p at home refer to PCP, heart healthy diet and excise limit salt intake limit soda intake and caffiene increase water 7. 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 Suicidal thoughts denies S/HI no plans or intent passive thoughts for years no active thoughts educated on safety plan support system go to nearest ER with SI/HI plans or intent increase passive thoughts, active thoughts discuss and educated on [place] 150 mg at bedtime for depression and suicide prevention [place] education [place] use reviewed. Risks include risks of toxicity, arrhythmias, cognitive impairment, changes in muscle coordination, weight gain, thyroid and parathyroid changes, polydipsia and polyuria, alopecia, tremor and teratogenicity ( defects). Recommend avoid in females (use contraception consistently). Routine lab monitoring may be required. Patient consented to treatment. Indications: acute ronald (euphoric ronald), bipolar prophylaxis, bipolar depression treatment or augmentation, unipolar depression as augmentation with antidepressants Average dose = I,500 mg/day, target serum level 0.8 [place] is known to reduce risk of suicide. Mechanism of action: inhibits inositol monophosphatase, interfering with 2nd messengers Nuisance Side Effects: sedation, cognitive difficulties, decreased creativity, dry mouth, tremor, increased appetite, weight gain, polydipsia, polyuria, nausea, diarrhea, acne, alopecia Serious Side Effects: Thyroid: hypothyroidism (5%), goiter (3%) Cardiac: decrease in cardiac conduction leading to sick sinus syndrome, blocks SA node Teratogenicity: Ebstein's anomaly 2 in 1,000 Renal: chronic renal insufficiency (after 10-20 years), acute renal failure, polyuria occurs in 50-70% [lithium antagonizes anti-diuretic hormone (ADH)], diabetes insipidus in 10% (treat with amiloride) Drug-drug interactions: increase in lithium: NSAIDs, THELMA inhibitors, angiotensin II antagonists If you are planning on becoming , notify your health care provider so that he/she can best manage your medications. People living with bipolar disorder who wish to become face important decisions. It is important to discuss the risks and benefits of treatment with your doctor and caregivers. [place] has been associated with an increased risk of Ebstein's anomaly, a heart valve defect. Even though data suggest that the risk of Ebstein's anomaly from first trimester use of lithium is very low, an ultrasound of the heart is recommended at 16 to 20 weeks of gestation. [place] levels should be monitored monthly in early and weekly near delivery. Do not stop taking lithium without first speaking to your health care provider. Discontinuing mood stabilizer medications during has been associated with a significant increase in symptom relapse. If an overdose occurs call your doctor or 911. You may need urgent medical care. You may also contact the poison control center at . A specific treatment to reverse the effects of lithium does not exist, but there are treatments to decrease the effects of the medication. Only a doctor can determine if you require treatment. Avoid drinking alcohol or using illegal drugs while you are taking lithium. They may decrease the benefits (e.g., worsen your condition) and increase adverse effects (e.g., sedation) of the medication. Avoid low sodium diets and dehydration because this can increase the risk of lithium toxicity. Avoid over the counter and prescription pain medications that contain nonsteroidal anti-inflammator y medications (NSAIDS) such as ibuprofen (Motrin, Advil) or naproxen (Aleve, Naprosyn) because these medications can increase the risk of toxicity from lithium. Avoid excessive intake of caffeinated beverages, such as coffee, tea, cola or energy drinks, since these may decrease levels of lithium and decrease effectiveness of the medication. Discontinuing caffeine use may increase lithium levels. Consult your health care provider before reducing or stopping caffeine use. What are the possible side effects of lithium? Common side effects Headache Nausea or vomiting Diarrhea Dizziness or drowsiness Changes in appetite Hand tremors Dry mouth Increased thirst Increased urination Thinning of hair or hair loss Acne-like rash Rare/Serious side effects Signs of lithium toxicity include severe nausea and vomiting, severe hand tremors, confusion, vision changes, and unsteadiness while standing or walking. These symptoms need to be addressed immediately with a medical doctor to ensure your lithium level is not dangerously high. In rare cases, lithium may lead to a reversible condition known as diabetes insipidus. If this occurs you would notice a significant increase in thirst and how much fluid you drink and how much you urinate. Talk to your doctor if you notice you are urinating more frequently than usual. Are There Any Risks For Taking [place] For Long Periods Of Time? Hypothyroidism (low levels of thyroid hormone) may occur with long-term lithium use. Rare kidney problems have been associated with long-term use of lithium. The risk increases with high levels of lithium. Your doctor will monitor your kidney function at routine check-ups to ensure this does not occur. Summary of Black Box Warnings [place] Toxicity [place] toxicity is closely related to lithium blood levels and can occur at doses close to therapeutic levels; lithium levels should be monitored closely when starting the medication or if individuals experience side effects of the medication. discuss and educated on all rx Patient educated on all medications including potential benefits, side effects, risks. Educated on proper dosing schedule and importance of compliance educated on all medications, benefits, side effects and risk, and educated on depression, anxiety, and ADHD, mood d/o and educated on compliance of medications, metabolic and movement d/o education appointment's, continue therapy discussion with patient about course of treatment and patient instructions. education on serotonin syndrome Discussed and educated pt regarding benzodiazepines are generally not intended for prolonged use and that use can cause tolerance, dependence, depression, and associated memory issues including dementias (this list is not exhaustive). Benzodiazepine use is generally not recommended concurrently with pain medications and/or other controlled substances educated on all medications, benefits, side effects and risk, and educated on depression, anxiety, and ADHD, mood d/o and educated on compliance of medications, metabolic and movement d/o education appointment is, continue therapy discussion with patient about course of treatment and patient instructions. education on serotonin syndrome SSRI/SNRI side effects discussed including but not limited to, gastric upset, nausea, vomiting, diarrhea and/or constipation, weight changes, sexual side effects including loss of libido, increased suicidal thoughts/behavio rs in children and young adults, and serotonin syndrome. Second generation antipsychotics (SGAs) have metabolic syndrome issues with weight gain, increase in prolactin, increased waist circumference, increased lipids, and increased glucose. Thus routine monitoring of weight, metabolic labs, etc. is indicated. A general rank ordering of antipsychotics that have the greatest to the least risk of metabolic effects is olanzapine, quetiapine, risperidone, ziprasidone, and aripiprazole. However, weight gain can occur with all of these drugs and considerable variability exists among patients receiving the same drug regarding the risk of metabolic effects. Anti-psychotic agents not only increase the risk of metabolic disorder, they also increase the risk of CVA, akathisia, and movement disorders including EPS or tardive dyskinesia (more common with first generation antipsychotics) and more. websites http_s://www.[facility].nih.gov/health /topics/mental-h ealth-medication s http_s://www.nam i.org/About-Ment al-Illness/Treat ments/Mental-Hea lth-Medications http_s://www.nam i.org/About-Ment al-Illness/Menta h-Nzmhur-Llgcati ons http_s://[employer]/depres myrna/the-cogniti vu-nrlmslzc-we-d epression#treatm ents http__s://www.[facility].nih.gov/healt h/topics/mental- health-medicatio ns http__s://www.na mi.org/About-Men prachi-Illness/Tamika tments/Mental-He alth-Medications http_s://estrellita. h.gov/publicatio ns/drugfacts/can nabis-marijuana http_s://www.[employer]/can immki-xeu-bvhrcw cj-lolpwfstk-zpe d/ Medication Management and Follow-Up - Plan: - Schedule follow-up appointments every 1-3 months to monitor the patient's response to the medication regimen. - Reinforce the importance of avoiding recreational drug use due to potential neurotoxicity and interactions with prescribed medications. 06/22/2025 Poor sleep hygiene (ICD-10 - Z72.821) 1.Depression Cymbalta 60 mg daily in am - helping last month on rx PCP prescribe rx discuss therapy options- pateint will wait at this time 2. Anxiety Cymbalta 60 mg daily in am 3.Poor Sleep hygeine Sleep Hygeine- - KEEP YOUR BEDROOM DARK - GET LOTS OF NATURAL LIGHT IN THE MORNING. - DON'T WORK ON YOUR COMPUTER OR PHONE LATE AT NIGHT. - AVOID NAPS DURING THE DAY. - NO CAFFEINE 3 HOURS OR MORE AFTER WAKE UP TIME. - ONLY USE YOUR BED FOR SLEEPING - GET A RELAXATION ROUTINE BEFORE BED. - IF YOU CAN'T GET TO SLEEP AFTER 15 TO 30 MINUTES GET OUT OF BED AND DO SOMETHING RELAXING. - DON'T DRINK ALCOHOL IN THE EVENING or limit alcohol to 1 drink. 4. Tobacco use Smoking Education Do not smoke. Nicotine and other chemicals in cigarettes and cigars can cause lung damage. Ask your healthcare provider for information if you currently smoke and need help to quit. E-cigarettes or smokeless tobacco still contain nicotine. Talk to your healthcare provider before you use these products. education on decrease to stopping nicotine products and stop smoking hotline given Quit - Yes [place] Tobacco Quitline Call a Smoking Quitline The [employer] [place] Smoking Quitline, (3-913-83R-QUIT) Smokefree.gov, which connects you with your State's Quitline, (7-537-HSTFQJC) Veterans Smoking Quitline, (8-309-MKQAKWK) 5. Cannabis use Cannabis Use Education Recommend decrease/stop cannabis use as it can negatively impact mood, motivation, anxiety, sleep, focus/concentrat ion/memory (vigilance, elasticity, processing and attention); can also contribute to development of psychosis. Recommend decrease/stop cannabis use as it may be negatively impacting mood, motivation, anxiety, sleep, focus; can also contribute to development of psychosis Cannabis/marijua na information: http_s://estrellita.ni h.gov/publicatio ns/drugfacts/can nabis-marijuana http_s://www.[employer]/can cjwju-tcg-miwylt un-tyjxtyyfu-tnp d/ 6/ elevated blood pressure B/P EDUCATION educated on healthy b/p 120/80 monitor b/p at home refer to PCP, heart healthy diet and excise limit salt intake limit soda intake and caffiene increase water 7. 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 Educated on proper dosing schedule and importance of compliance educated on all medications, benefits, side effects and risk, and educated on depression, anxiety, and ADHD, mood d/o and educated on compliance of medications, metabolic and movement d/o education appointment's, continue therapy discussion with patient about course of treatment and patient instructions. education on serotonin syndrome Discussed and educated pt regarding benzodiazepines are generally not intended for prolonged use and that use can cause tolerance, dependence, depression, and associated memory issues including dementias (this list is not exhaustive). Benzodiazepine use is generally not recommended concurrently with pain medications and/or other controlled substances educated on all medications, benefits, side effects and risk, and educated on depression, anxiety, and ADHD, mood d/o and educated on compliance of medications, metabolic and movement d/o education appointment is, continue therapy discussion with patient about course of treatment and patient instructions. education on serotonin syndrome SSRI/SNRI side effects discussed including but not limited to, gastric upset, nausea, vomiting, diarrhea and/or constipation, weight changes, sexual side effects including loss of libido, increased suicidal thoughts/behavio rs in children and young adults, and serotonin syndrome. Second generation antipsychotics (SGAs) have metabolic syndrome issues with weight gain, increase in prolactin, increased waist circumference, increased lipids, and increased glucose. Thus routine monitoring of weight, metabolic labs, etc. is indicated. A general rank ordering of antipsychotics that have the greatest to the least risk of metabolic effects is olanzapine, quetiapine, risperidone, ziprasidone, and aripiprazole. However, weight gain can occur with all of these drugs and considerable variability exists among patients receiving the same drug regarding the risk of metabolic effects. Anti-psychotic agents not only increase the risk of metabolic disorder, they also increase the risk of CVA, akathisia, and movement disorders including EPS or tardive dyskinesia (more common with first generation antipsychotics) and more. websites http_s://www.nim h.nih.gov/health /topics/mental-h ealth-medication s http_s://www.nam i.org/About-Ment al-Illness/Treat ments/Mental-Hea lth-Medications http_s://www.nam i.org/About-Ment al-Illness/Menta v-Rhcmuo-Tjmrnpa ons http_s://[employer]ce [employer]rav.com/depres myrna/the-cogniti hq-iodeivzp-an-d epression#treatm ents http__s://www.ni mh.nih.gov/healt h/topics/mental- health-medicatio ns http__s://www.na mi.org/About-Men prachi-Illness/Tamika tments/Mental-He alth-Medications http_s://estrellita.ni h.gov/publicatio ns/drugfacts/can nabis-marijuana http_s://www.[employer]/can cbash-xkw-tcnlrg zd-tejvohtfr-ner d/ Medication Management and Follow-Up - Plan: - Schedule follow-up appointments every 1-3 months to monitor the patient's response to the medication regimen. - Reinforce the importance of avoiding recreational drug use due to potential neurotoxicity and interactions with prescribed medications. 05/25/2025 Attention deficit disorder (ADD) in adult (ICD-10 - F98.8) 1.Depression Cymbalta 60 mg daily in am - helping last month on rx PCP prescribe rx discuss therapy options- pateint will wait at this time 2. Anxiety Cymbalta 60 mg daily in am 3.Poor Sleep hygeine Sleep Hygeine- - KEEP YOUR BEDROOM DARK - GET LOTS OF NATURAL LIGHT IN THE MORNING. - DON'T WORK ON YOUR COMPUTER OR PHONE LATE AT NIGHT. - AVOID NAPS DURING THE DAY. - NO CAFFEINE 3 HOURS OR MORE AFTER WAKE UP TIME. - ONLY USE YOUR BED FOR SLEEPING - GET A RELAXATION ROUTINE BEFORE BED. - IF YOU CAN'T GET TO SLEEP AFTER 15 TO 30 MINUTES GET OUT OF BED AND DO SOMETHING RELAXING. - DON'T DRINK ALCOHOL IN THE EVENING or limit alcohol to 1 drink. 4. Tobacco use Smoking Education Do not smoke. Nicotine and other chemicals in cigarettes and cigars can cause lung damage. Ask your healthcare provider for information if you currently smoke and need help to quit. E-cigarettes or smokeless tobacco still contain nicotine. Talk to your healthcare provider before you use these products. education on decrease to stopping nicotine products and stop smoking hotline given -Quit - Yes [place] Tobacco Quitline Call a Smoking Quitline The [employer] [place] Smoking Quitline, (9-692-52C-QUIT) Smokefree.gov, which connects you with your State's Quitline, (3-951-RCNHTTV) Veterans Smoking Quitline, (7-664-KUOMHCU) 5. Cannabis use Cannabis Use Education Recommend decrease/stop cannabis use as it can negatively impact mood, motivation, anxiety, sleep, focus/concentrat ion/memory (vigilance, elasticity, processing and attention); can also contribute to development of psychosis. Recommend decrease/stop cannabis use as it may be negatively impacting mood, motivation, anxiety, sleep, focus; can also contribute to development of psychosis Cannabis/marijua na information: http_s://estrellita.ni h.gov/publicatio ns/drugfacts/can nabis-marijuana http_s://www.[employer]/can admam-eav-xdtjtg hf-icxdrdivk-koc d/ 6/ elevated blood pressure B/P EDUCATION educated on healthy b/p 120/80 monitor b/p at home refer to PCP, heart healthy diet and excise limit salt intake limit soda intake and caffiene increase water 7. ADD Schedule Creyos testing educated on cardiovascular health and HTN discuss non-stimualtes no control subtance prescribed by RADHA r/t cannabis use and HTN Patient educated on all medications including potential benefits, side effects, risks. Educated on proper dosing schedule and importance of compliance educated on all medications, benefits, side effects and risk, and educated on depression, anxiety, and ADHD, mood d/o and educated on compliance of medications, metabolic and movement d/o education appointment's, continue therapy discussion with patient about course of treatment and patient instructions. education on serotonin syndrome Discussed and educated pt regarding benzodiazepines are generally not intended for prolonged use and that use can cause tolerance, dependence, depression, and associated memory issues including dementias (this list is not exhaustive). Benzodiazepine use is generally not recommended concurrently with pain medications and/or other controlled substances educated on all medications, benefits, side effects and risk, and educated on depression, anxiety, and ADHD, mood d/o and educated on compliance of medications, metabolic and movement d/o education appointment is, continue therapy discussion with patient about course of treatment and patient instructions. education on serotonin syndrome SSRI/SNRI side effects discussed including but not limited to, gastric upset, nausea, vomiting, diarrhea and/or constipation, weight changes, sexual side effects including loss of libido, increased suicidal thoughts/behavio rs in children and young adults, and serotonin syndrome. Second generation antipsychotics (SGAs) have metabolic syndrome issues with weight gain, increase in prolactin, increased waist circumference, increased lipids, and increased glucose. Thus routine monitoring of weight, metabolic labs, etc. is indicated. A general rank ordering of antipsychotics that have the greatest to the least risk of metabolic effects is olanzapine, quetiapine, risperidone, ziprasidone, and aripiprazole. However, weight gain can occur with all of these drugs and considerable variability exists among patients receiving the same drug regarding the risk of metabolic effects. Anti-psychotic agents not only increase the risk of metabolic disorder, they also increase the risk of CVA, akathisia, and movement disorders including EPS or tardive dyskinesia (more common with first generation antipsychotics) and more. websites http_s://www.nim h.nih.gov/health /topics/mental-h ealth-medication s http_s://www.nam i.org/About-Ment al-Illness/Treat ments/Mental-Hea lth-Medications http_s://www.nam i.org/About-Ment al-Illness/Menta c-Qyfesm-Kcmifrc ons http_s://[employer]/deprvika norris/the-cogniti eb-pfotjjjt-uz-d epression#treatm ents http__s://www.ni .nih.gov/healt h/topics/mental- health-medicatio ns http__s://www.na mi.org/About-Men prachi-Illness/Tamika tments/Mental-He alth-Medications http_s://estrellita.ni h.gov/publicatio ns/drugfacts/can nabis-marijuana http_s://www.[employer]/can ifsdg-ubu-bemtvb sn-ehojqgkgk-eid d/ Medication Management and Follow-Up - Plan: - Schedule follow-up appointments every 1-3 months to monitor the patient's response to the medication regimen. - Reinforce the importance of avoiding recreational drug use due to potential neurotoxicity and interactions with prescribed medications. 06/22/2025 Attention deficit disorder (ADD) in adult (ICD-10 - F98.8) 1.Depression Cymbalta 60 mg daily in am - helping last month on rx PCP prescribe rx discuss therapy options- pateint will wait at this time 2. Anxiety Cymbalta 60 mg daily in am 3.Poor Sleep hygeine Sleep Hygeine- - KEEP YOUR BEDROOM DARK - GET LOTS OF NATURAL LIGHT IN THE MORNING. - DON'T WORK ON YOUR COMPUTER OR PHONE LATE AT NIGHT. - AVOID NAPS DURING THE DAY. - NO CAFFEINE 3 HOURS OR MORE AFTER WAKE UP TIME. - ONLY USE YOUR BED FOR SLEEPING - GET A RELAXATION ROUTINE BEFORE BED. - IF YOU CAN'T GET TO SLEEP AFTER 15 TO 30 MINUTES GET OUT OF BED AND DO SOMETHING RELAXING. - DON'T DRINK ALCOHOL IN THE EVENING or limit alcohol to 1 drink. 4. Tobacco use Smoking Education Do not smoke. Nicotine and other chemicals in cigarettes and cigars can cause lung damage. Ask your healthcare provider for information if you currently smoke and need help to quit. E-cigarettes or smokeless tobacco still contain nicotine. Talk to your healthcare provider before you use these products. education on decrease to stopping nicotine products and stop smoking hotline given 4Quit - Yes [place] Tobacco Quitline Call a Smoking Quitline The [employer] [place] Smoking Quitline, (2-901-91D-QUIT) Smokefree.gov, which connects you with your State's Quitline, (0-985-DAEGBYA) Veterans Smoking Quitline, (8-231-JFKZHYZ) 5. Cannabis use Cannabis Use Education Recommend decrease/stop cannabis use as it can negatively impact mood, motivation, anxiety, sleep, focus/concentrat ion/memory (vigilance, elasticity, processing and attention); can also contribute to development of psychosis. Recommend decrease/stop cannabis use as it may be negatively impacting mood, motivation, anxiety, sleep, focus; can also contribute to development of psychosis Cannabis/marijua na information: http_s://estrellita.ni h.gov/publicatio ns/drugfacts/can nabis-marijuana http_s://www.[employer]/can duyrb-efz-yfmsxh bg-exnybsrcv-apn d/ 6/ elevated blood pressure B/P EDUCATION educated on healthy b/p 120/80 monitor b/p at home refer to PCP, heart healthy diet and excise limit salt intake limit soda intake and caffiene increase water 7. 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 Educated on proper dosing schedule and importance of compliance educated on all medications, benefits, side effects and risk, and educated on depression, anxiety, and ADHD, mood d/o and educated on compliance of medications, metabolic and movement d/o education appointment's, continue therapy discussion with patient about course of treatment and patient instructions. education on serotonin syndrome Discussed and educated pt regarding benzodiazepines are generally not intended for prolonged use and that use can cause tolerance, dependence, depression, and associated memory issues including dementias (this list is not exhaustive). Benzodiazepine use is generally not recommended concurrently with pain medications and/or other controlled substances educated on all medications, benefits, side effects and risk, and educated on depression, anxiety, and ADHD, mood d/o and educated on compliance of medications, metabolic and movement d/o education appointment is, continue therapy discussion with patient about course of treatment and patient instructions. education on serotonin syndrome SSRI/SNRI side effects discussed including but not limited to, gastric upset, nausea, vomiting, diarrhea and/or constipation, weight changes, sexual side effects including loss of libido, increased suicidal thoughts/behavio rs in children and young adults, and serotonin syndrome. Second generation antipsychotics (SGAs) have metabolic syndrome issues with weight gain, increase in prolactin, increased waist circumference, increased lipids, and increased glucose. Thus routine monitoring of weight, metabolic labs, etc. is indicated. A general rank ordering of antipsychotics that have the greatest to the least risk of metabolic effects is olanzapine, quetiapine, risperidone, ziprasidone, and aripiprazole. However, weight gain can occur with all of these drugs and considerable variability exists among patients receiving the same drug regarding the risk of metabolic effects. Anti-psychotic agents not only increase the risk of metabolic disorder, they also increase the risk of CVA, akathisia, and movement disorders including EPS or tardive dyskinesia (more common with first generation antipsychotics) and more. websites http_s://www.[facility].nih.gov/health /topics/mental-h ealth-medication s http_s://www.nam i.org/About-Ment al-Illness/Treat ments/Mental-Hea lth-Medications http_s://www.nam i.org/About-Ment al-Illness/Menta v-Aqhddg-Dmbrako ons http_s://[employer]/depres myrna/the-cogniti qh-ilmgeowo-db-d epression#treatm ents http__s://www.[facility].nih.gov/healt h/topics/mental- health-medicatio ns http__s://www.na mi.org/About-Men prachi-Illness/Tamika tments/Mental-He alth-Medications http_s://estrellita. h.gov/publicatio ns/drugfacts/can nabis-marijuana http_s://www.[employer]/can klwct-zhl-stjpvb ao-xmtutfdrc-tjv d/ Medication Management and Follow-Up - Plan: - Schedule follow-up appointments every 1-3 months to monitor the patient's response to the medication regimen. - Reinforce the importance of avoiding recreational drug use due to potential neurotoxicity and interactions with prescribed medications. 07/20/2025 Other [place] materia l was published 1.Depression Cymbalta 60 mg daily in am - helping last month on rx Start [id number] at bedtime for depression and suicide prevention PCP prescribe rx discuss therapy options- pateint will wait at this time 2. Anxiety Cymbalta 60 mg daily in am 3.Poor Sleep hygeine Sleep Hygeine- - KEEP YOUR BEDROOM DARK - GET LOTS OF NATURAL LIGHT IN THE MORNING. - DON'T WORK ON YOUR COMPUTER OR PHONE LATE AT NIGHT. - AVOID NAPS DURING THE DAY. - NO CAFFEINE 3 HOURS OR MORE AFTER WAKE UP TIME. - ONLY USE YOUR BED FOR SLEEPING - GET A RELAXATION ROUTINE BEFORE BED. - IF YOU CAN'T GET TO SLEEP AFTER 15 TO 30 MINUTES GET OUT OF BED AND DO SOMETHING RELAXING. - DON'T DRINK ALCOHOL IN THE EVENING or limit alcohol to 1 drink. 4. Tobacco use Smoking Education Do not smoke. Nicotine and other chemicals in cigarettes and cigars can cause lung damage. Ask your healthcare provider for information if you currently smoke and need help to quit. E-cigarettes or smokeless tobacco still contain nicotine. Talk to your healthcare provider before you use these products. education on decrease to stopping nicotine products and stop smoking hotline given Quit - Yes [place] Tobacco Quitline Call a Smoking Quitline The National Cancer [place]'s Smoking Quitline, (5-536-46Z-QUIT) Smokefree.gov, which connects you with your State's Quitline, (1-388-IDDHUWU) Veterans Smoking Quitline, (1-931-SSJPYUE) 5. Cannabis use- discuss decrease use to stopping Cannabis Use Education Recommend decrease/stop cannabis use as it can negatively impact mood, motivation, anxiety, sleep, focus/concentrat ion/memory (vigilance, elasticity, processing and attention); can also contribute to development of psychosis. Recommend decrease/stop cannabis use as it may be negatively impacting mood, motivation, anxiety, sleep, focus; can also contribute to development of psychosis Cannabis/marijua na information: http_s://estrellita.ni h.gov/publicatio ns/drugfacts/can nabis-marijuana http_s://www.[employer]/can gewze-afu-wrpkqt fo-ptjiumgdd-bwy d/ 6/ elevated blood pressure B/P EDUCATION-instru cted to call PCP or urgent care due to elevated blood pressure- patient will see a provider today discuss cardiovascular risk with elevated B/P ON RX educated on healthy b/p 120/80 monitor b/p at home refer to PCP, heart healthy diet and excise limit salt intake limit soda intake and caffiene increase water 7. 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 Suicidal thoughts denies S/HI no plans or intent passive thoughts for years no active thoughts educated on safety plan support system go to nearest ER with SI/HI plans or intent increase passive thoughts, active thoughts discuss and educated on [place] 150 mg at bedtime for depression and suicide prevention [place] education [place] use reviewed. Risks include risks of toxicity, arrhythmias, cognitive impairment, changes in muscle coordination, weight gain, thyroid and parathyroid changes, polydipsia and polyuria, alopecia, tremor and teratogenicity ( defects). Recommend avoid in females (use contraception consistently). Routine lab monitoring may be required. Patient consented to treatment. Indications: acute ronald (euphoric ronald), bipolar prophylaxis, bipolar depression treatment or augmentation, unipolar depression as augmentation with antidepressants Average dose = I,500 mg/day, target serum level 0.8 [place] is known to reduce risk of suicide. Mechanism of action: inhibits inositol monophosphatase, interfering with 2nd messengers Nuisance Side Effects: sedation, cognitive difficulties, decreased creativity, dry mouth, tremor, increased appetite, weight gain, polydipsia, polyuria, nausea, diarrhea, acne, alopecia Serious Side Effects: Thyroid: hypothyroidism (5%), goiter (3%) Cardiac: decrease in cardiac conduction leading to sick sinus syndrome, blocks SA node Teratogenicity: Ebstein's anomaly 2 in 1,000 Renal: chronic renal insufficiency (after 10-20 years), acute renal failure, polyuria occurs in 50-70% [lithium antagonizes anti-diuretic hormone (ADH)], diabetes insipidus in 10% (treat with amiloride) Drug-drug interactions: increase in lithium: NSAIDs, THELMA inhibitors, angiotensin II antagonists If you are planning on becoming , notify your health care provider so that he/she can best manage your medications. People living with bipolar disorder who wish to become face important decisions. It is important to discuss the risks and benefits of treatment with your doctor and caregivers. [place] has been associated with an increased risk of Ebstein's anomaly, a heart valve defect. Even though data suggest that the risk of Ebstein's anomaly from first trimester use of lithium is very low, an ultrasound of the heart is recommended at 16 to 20 weeks of gestation. [place] levels should be monitored monthly in early and weekly near delivery. Do not stop taking lithium without first speaking to your health care provider. Discontinuing mood stabilizer medications during has been associated with a significant increase in symptom relapse. If an overdose occurs call your doctor or 911. You may need urgent medical care. You may also contact the poison control center at . A specific treatment to reverse the effects of lithium does not exist, but there are treatments to decrease the effects of the medication. Only a doctor can determine if you require treatment. Avoid drinking alcohol or using illegal drugs while you are taking lithium. They may decrease the benefits (e.g., worsen your condition) and increase adverse effects (e.g., sedation) of the medication. Avoid low sodium diets and dehydration because this can increase the risk of lithium toxicity. Avoid over the counter and prescription pain medications that contain nonsteroidal anti-inflammator y medications (NSAIDS) such as ibuprofen (Motrin, Advil) or naproxen (Aleve, Naprosyn) because these medications can increase the risk of toxicity from lithium. Avoid excessive intake of caffeinated beverages, such as coffee, tea, cola or energy drinks, since these may decrease levels of lithium and decrease effectiveness of the medication. Discontinuing caffeine use may increase lithium levels. Consult your health care provider before reducing or stopping caffeine use. What are the possible side effects of lithium? Common side effects Headache Nausea or vomiting Diarrhea Dizziness or drowsiness Changes in appetite Hand tremors Dry mouth Increased thirst Increased urination Thinning of hair or hair loss Acne-like rash Rare/Serious side effects Signs of lithium toxicity include severe nausea and vomiting, severe hand tremors, confusion, vision changes, and unsteadiness while standing or walking. These symptoms need to be addressed immediately with a medical doctor to ensure your lithium level is not dangerously high. In rare cases, lithium may lead to a reversible condition known as diabetes insipidus. If this occurs you would notice a significant increase in thirst and how much fluid you drink and how much you urinate. Talk to your doctor if you notice you are urinating more frequently than usual. Are There Any Risks For Taking [place] For Long Periods Of Time? Hypothyroidism (low levels of thyroid hormone) may occur with long-term lithium use. Rare kidney problems have been associated with long-term use of lithium. The risk increases with high levels of lithium. Your doctor will monitor your kidney function at routine check-ups to ensure this does not occur. Summary of Black Box Warnings [place] Toxicity [place] toxicity is closely related to lithium blood levels and can occur at doses close to therapeutic levels; lithium levels should be monitored closely when starting the medication or if individuals experience side effects of the medication. discuss and educated on all rx Patient educated on all medications including potential benefits, side effects, risks. Educated on proper dosing schedule and importance of compliance educated on all medications, benefits, side effects and risk, and educated on depression, anxiety, and ADHD, mood d/o and educated on compliance of medications, metabolic and movement d/o education appointment's, continue therapy discussion with patient about course of treatment and patient instructions. education on serotonin syndrome Discussed and educated pt regarding benzodiazepines are generally not intended for prolonged use and that use can cause tolerance, dependence, depression, and associated memory issues including dementias (this list is not exhaustive). Benzodiazepine use is generally not recommended concurrently with pain medications and/or other controlled substances educated on all medications, benefits, side effects and risk, and educated on depression, anxiety, and ADHD, mood d/o and educated on compliance of medications, metabolic and movement d/o education appointment is, continue therapy discussion with patient about course of treatment and patient instructions. education on serotonin syndrome SSRI/SNRI side effects discussed including but not limited to, gastric upset, nausea, vomiting, diarrhea and/or constipation, weight changes, sexual side effects including loss of libido, increased suicidal thoughts/behavio rs in children and young adults, and serotonin syndrome. Second generation antipsychotics (SGAs) have metabolic syndrome issues with weight gain, increase in prolactin, increased waist circumference, increased lipids, and increased glucose. Thus routine monitoring of weight, metabolic labs, etc. is indicated. A general rank ordering of antipsychotics that have the greatest to the least risk of metabolic effects is olanzapine, quetiapine, risperidone, ziprasidone, and aripiprazole. However, weight gain can occur with all of these drugs and considerable variability exists among patients receiving the same drug regarding the risk of metabolic effects. Anti-psychotic agents not only increase the risk of metabolic disorder, they also increase the risk of CVA, akathisia, and movement disorders including EPS or tardive dyskinesia (more common with first generation antipsychotics) and more. websites http_s://www.nim h.nih.gov/health /topics/mental-h ealth-medication s http_s://www.nam i.org/About-Ment al-Illness/Treat ments/Mental-Hea lth-Medications http_s://www.nam i.org/About-Ment al-Illness/Menta x-Bixlzj-Gswazeh ons http_s://[employer]/depres myrna/the-cogniti jg-fclxiwzj-aa-d epression#treatm ents http__s://www.[facility].nih.gov/healt h/topics/mental- health-medicatio ns http__s://www.na mi.org/About-Men prachi-Illness/Tamika tments/Mental-He alth-Medications http_s://estrellita.[facility].gov/publicatio ns/drugfacts/can nabis-marijuana http_s://www.[employer]/can ioxsn-fqu-ozrjuy ae-xogvxypfx-bgv d/ Medication Management and Follow-Up - Plan: - Schedule follow-up appointments every 1-3 months to monitor the patient's response to the medication regimen. - Reinforce the importance of avoiding recreational drug use due to potential neurotoxicity and interactions with prescribed medications. Plan Of Treatment Future Test Test Name Order Date ADHD Testing 05/25/2025 Next Appt Details Provider Name:Yeny Sotelo , 11/09/2025 09:30:00 AM, [facility] [address], [facility] [address], [place], [address], Insurance Providers Payer Name Payer Address Payer Phone Subscriber Number Group Number Insured Name Patient Relationship to Insured Coverage Start Date Coverage End Date [facility] [address] [place] [phone] [id number] Kaushik Morrow Self - patient is the insured Medical (General) History Medical History History ICD Code Past Psychiatric History: Anxiety Disord er,Major Depressive Episode abdominal aortic aneurysm: No atrial fibrillation: No chronic fatigue syndrome: No essential tremor: No hyperlipidemia: No hypertension: yes Parkinson's disease: No restless leg syndrome: No stroke: No subdural hematoma: No type 1 diabetes mellitus: No type 2 diabetes mellitus: No vitamin B12 deficiency: No vitamin D deficiency: No Surgical History Surgery Date(Month/Year) rotator cuff surgery
[2025-09-20 16:44] LABS: Hematocrit 45.7 % (42.0-52.0); Hemoglobin 15.4 g/dL (14.0-18.0); Immature Granulocyte Percent A 0.3 % (0-0.5); Lymphocytes Absolute Auto 2.28 K/mm3 (0.9-3.2); Mean Corpuscular HGB Conc 33.7 g/dl (32-36); Mean Corpuscular Hemoglobin 31.2 pg (26-34); Mean Corpuscular Volume 92.5 fl (80-100); Nucleated Red Blood Cells Absolute Auto 0.000 K/mm3 (0.0-0.012); Nucleated Red Blood Cells Perc 0.0 % (0.0-0.2); Platelet Count Result 330 k/mm3 (150-375); Red Blood Count 4.94 M/mm3 (4.6-6.20); White Blood Count 11.0 K/mm3 (4.5-10.0)
[2025-09-21 15:09] LABS: Albumin 4.2 g/dL (2.9-4.4); Alpha-1-Globulin 0.2 g/dL (0.0-0.4); Alpha-2-Globulin 0.6 g/dL (0.4-1.0); Gamma Globulin 1.2 g/dL (0.4-1.8)
== END 2025-09-20 16:25 | disposition home or self-care (01) ==
PROVIDERS: PCP Internal Medicine; Visit Provider Internal Medicine
DX: D72.829 Elevated white blood cell count, unspecified (principal); I10 Essential (primary) hypertension; Z72.0 Tobacco use
CPT/HCPCS: 36415; 71046; 84155; 84165; 85025